=== PATIENT | male | born 1985 | race Caucasian/White ===

== ENCOUNTER 2016-12-04 14:05 | Inpatient (IN) | payer OTHER ==
[~2016-12-04] VITALS: Ht 175.3 cm; Wt 99.3 kg
--- NOTE | 2016-12-04 14:04 | ED.REPORT ---
HPI-General Illness Date of Service Dec 04, 2016 ED Provider: Luz Elena Babin MD The pt is a 31 y/o male presenting to the ED via EMS due to a drug overdose. He was first seen in the ambulance bay where intubation was being attempted. The intubation attempt was aborted in the ambulance bay. When EMS first arrived to pharmacy picking technician the pt, the pt was still able to speak and walk to the stretcher but soon began to become more and more drowsy. Narcan was given which helped to wake him up, but he soon returned to his state of drowsiness. They report him being hypotensive initially, gave him fluids, which then caused his BP to rise to 111/70 w/ a HR of 150. They report the overdose was from OxyContin "snorting" at 0700 although the pt had not used to the last 90 days. The pts father reports him complaining of being unable to breathe for the last three days. Nursing Notes Stated Complaint: OVERDOSE Chief Complaint: Overdose Nursing Notes Reviewed: Yes Allergies: Coded Allergies: Iodine and Iodide Containing Produc (Verified Allergy, Unknown, 12/04/16) General Time Seen by MD: 14:03 Chief Complaint Other (Overdose ) Hx Obtained From: Other family... (Father), EMS Arrived By: Ambulance Sudden in Onset?: Yes Onset Occurred: Just prior to arrival Symptom Duration: Since onset Recent Healthcare: No recent doctor visit, No recent hospitalization Similar Sx Previous: No Past Medical History Past Medical History Lumbago Past Surgical History None reported Smoking History Unknown if Ever Smoker Social History hx of Oxycontin use but reports not using for the last 90 days prior to today Drug Use: Other Ambulatory Status Independent Review of Systems Unable to Obtain ROS Patient condition Physical Exam Vital Signs HR - 93 BP - 84/29 SaO2 - 63% Initial VS: Reviewed Alertness: Positive: Unresponsive Head / Eyes: Atraumatic, Normocephalic ENT: Mucous membranes moist Neck: Supple, No masses Abdomen: Soft Upper Extremities Upper Extremity / MS: No deformity, Vascular intact Lower Extremity / Pelvis / MS: No deformity, Vascular intact Skin: No rash, Dry No obvious track rico or trauma Pt's skin appears mottled Copious amount of bloods coming from abdomen and lungs Mental Status: Positive: Unresponsive Interpretation & Diagnostics Lab Results Interpretation Result Diagram: 12/04/16 1830 12/04/16 1454 Test 12/04/16 14:49 12/04/16 14:54 Hold Blue Top Tube Received (Received) Hold [place] Top Tube Received (Received) Triglycerides Level 231mg/dL (0-149) Salicylates Level < 3.0ug/mL (30-250) Acetaminophen Level < 15.0ug/mL Rx (10-25) X-Ray Chest Interpretation Chest Xray Interpretation: IMPRESSION: Generalized pulmonary edema, moderately severe. Endotracheal and nasogastric tubes in normal position. Dictated by: Pavel Castle M.D. on 12/04/2016 at 15:33 Approved by: Pavel Castle M.D. on 12/04/2016 at 15:34 View: Portable, 1 view Interpretation / Wet Read by: Interpret - Radiologist Chest Xray Interpretation: IMPRESSION: 1. Interval placement of central venous catheter. No pneumothorax. 2. Other support devices in place. 3. Moderate pulmonary edema Dictated by: Ayaan Johnson M.D. on 12/04/2016 at 16:25 Approved by: Ayaan Johnson M.D. on 12/04/2016 at 16:28 View: Portable, 1 view Interpretation / Wet Read by: Interpret - Radiologist CT Head Interpretation IMPRESSION: 1. No acute intracranial findings. 2. Fluid within the right maxillary sinus and sphenoid sinuses. This is likely related to intubation; however acute sinusitis can also have this appearance. Dictated by: Alicia Napoles M.D. on 12/04/2016 at 16:35 Approved by: Alicia Napoles M.D. on 12/04/2016 at 16:41 Study: Head CT no contrast Interpretation / Wet Read by: Interpret - Radiologist Re-Eval/Medical Decision Med Decision/Clinical Course 31-year-old man with increasing shortness of breath. Father came home and he complained of increasing shortness of breath with increasingly sleepy. Father asked him what he had taken, there is a history of narcotic use and abuse. Father also noted a dramatic amount of blood all over the patient's room that appeared to open emesis. He states that at 7 AM this morning he snorted a 30 mg tablet of OxyContin. The time was about 1400. Medics were called and on arrival patient was increasingly sleepy and dyspneic. He was able to speak in full sentences and was able to get up and walk to the stretcher. Shortly after getting on the stretcher and being helped into the back of the ambulance he stopped breathing. Maintain pulses was being bagged. Upon arrival in the ambulance bay attempts are being made to intubate. Large amount of bright red blood from his gout and apparently from his trachea was noted with initial intubation attempts. I was immediately available in the ambulance bay and requested he be brought into our trauma room for further evaluation. Attempts were made to continue with bagging with an oral airway placed. Continued significant amount of bright red blood from the mouth continued. Shortly after transfer from the ambulance [place] onto the emergency room stretcher pulses were lost. CPR was started. He was noted to be in ventricular fibrillation. ACLS protocols were initiated. He was shocked a number of times and received a number of doses of epinephrine. Able to intubate with a kaleidoscope. There was a significant amount of bloody vomitus in the trachea that was continuously suctioned through the ET tube. OG tube was placed with about 250 mL of ananda blood suctioned into the container. Patient had been given Narcan in route by medics with minimal response. He was given another dose in the trauma bay with no response. Saturations were responding to adequate CPR. End tidal CO2 increased from the 20 range to the knee range. Reasons for ventricular fibrillation arrest were reviewed. At this point we did have control of his airway with oxygenation and ventilation as best we could and seemingly the majority of blood in the trachea and upper lungs had been suctioned out. Dramatic amount of blood loss described in the ananda blood noted in the GI system hypovolemia was entertained and 2 L of saline were followed with 2 units of uncrossed matched blood. Bicarbonate was administered. Clinical exam did not suggest pneumothorax. Labs are still pending at this point. Please see nursing records for ACLS protocols maintained After 45 minutes of aggressive resuscitation he finally continued to maintain heart rate and blood pressure. His chest x-ray was obtained he was noted to have significant white out of both lungs with difficulties with both oxygenation and ventilation. Additional possible causes in lead 3 days of increasing respiratory complaints and the severity of the findings on chest x-ray the possibility of pulmonary edema and pulmonary hemorrhage secondary to his drug use and snorting medications with a primary respiratory arrest due to increasing hypercarbia is entertained. Phone call was made to Dr. Mccormick, pulmonary critical care physician to ask further suggestions and help with ventilator status to try to improve both ventilation and oxygenation neither of which are adequate at this point Call to hospitalist who is also immediately available in the emergency department to help with transfer to the floor. Patient will go through the CT scanner to make sure there is no catastrophic head bleed prior to admission to the ICU Discussion with father and mother multiple times throughout the hour-long code with intermittent episodes of chest compression. Questions were answered. Time of Eval: 16:22 Re-Evaluation/Progress Note: Pt rechecked. Pt's father reports being told by the pt that 30 mg of oxycontin was snorted Consultation #1: Referral / Consult Name: Moy Mccormick MD Consulted With: Lens Matcher Call Returned at: 15:22 Bindery Machine Tender: Will see patient Consultation #2: Referral / Consult Name: Jose A Troncoso MD Consulted With: Hospitalist Call Returned at: 15:26 Bindery Machine Tender: Will see patient, Agrees with eval, Agrees with plan, Accepts admit Counseled Regarding: Diagnosis, Lab results, Need for admission Discharge & Departure Primary Impression: Cardiac arrest Additional Impression: Respiratory failure Disposition: ADMITTED TO HOSPITAL Discharge Condition All VS Reviewed: Yes Condition: Stable Referrals: Raman Grubbs MD (PCP) Crit Care Except Billable Proc Time Spent: 75-104 minutes Services Performed: Patient management by me, Time spent at bedside, Reviewing test results, Reviewing imaging, Discussing patient care, Documentation in record Scribe Attestation Portions of this note were transcribed by Michelet Acosta. I, Dr. Babin personally performed the history, physical exam and medical decision-making; I reviewed and confirmed the accuracy of the information in the transcribed note. copies to: Raman Grubbs MD, Shawna L MD Dec 04, 2016 14:04 Michelet Acosta Dec 04, 2016 15:06 Call Returned at: 15:22 Bindery Machine Tender: Will see patient Consultation #2: Referral / Consult Name: Jose A Troncoso MD Consulted With: Hospitalist Call Returned at: 15:26 Bindery Machine Tender: Will see patient, Agrees with eval, Agrees with plan, Accepts admit Counseled Regarding: Diagnosis, Lab results, Need for admission Discharge & Departure Primary Impression: Cardiac arrest Disposition: ADMITTED TO HOSPITAL Discharge Condition All VS Reviewed: Yes Condition: Stable Referrals: Raman Grubbs MD (PCP) Scribe Attestation Portions of this note were transcribed by Michelet Acosta. I, Dr. Babin personally performed the history, physical exam and medical decision-making; I reviewed and confirmed the accuracy of the information in the transcribed note. copies to: Raman Grubbs MD,Luz Elena Jackson MD Dec 04, 2016 14:04 Michelet Acosta Dec 04, 2016 15:06
[2016-12-04 14:59] LABS: Mean Corpuscular Hemoglobin 28.9 pg (27.0-35.0); Mean Corpuscular Volume 83.5 fL (81-100)
[2016-12-04] MEDS ORDERED: fentaNYL-PF 50 mCg/mL 2 mL Inj IVPUSH PRN (15:00)
[2016-12-04] MEDS ORDERED: Propofol 10,000 mCg/mL 100 mL Inj ONE (15:02)
[2016-12-04] MEDS ORDERED: fentaNYL 2,500 mCg/250 mL 2,500 MCG in IV Premix 1 EACH IV SCH (15:08)
[2016-12-04] MEDS ORDERED: fentaNYL 2,500 mCg/250 mL IV Premix IV SCH (15:10)
[2016-12-04] MEDS ORDERED: fentaNYL-PF 50 mCg/mL 2 mL Inj ONE ×4 (15:14→15:26)
[2016-12-04] MEDS ORDERED: Sodium Chloride LOK Flush 10 mL Syringe ONE ×2 (15:26)
[2016-12-04] MEDS ORDERED: 0.9% Sodium Chloride 250 ML IV ONE (15:26)
[2016-12-04] MEDS ORDERED: 0.9% Sodium Chloride 10 mL Inj IV ONE (15:26)
[2016-12-04] MEDS ORDERED: Magnesium Sulfate 50% 1 Gm/2 mL 10 mL Inj ONE (15:26)
[2016-12-04] MEDS ORDERED: EPINEPHrine 0.1 mg/mL 10 mL Syringe IV ONE (15:26)
[2016-12-04] MEDS ORDERED: DOPamine 800 mg/250 mL D5W Premix IV ONE (15:26)
[2016-12-04] MEDS ORDERED: Sodium Bicarb 1 mEq/mL 50 mL Inj ONE (15:26)
[2016-12-04] MEDS ORDERED: EPINEPHrine 0.1 mg/mL 10 mL Syringe ONE (15:26)
[2016-12-04] MEDS ORDERED: 0.9% Sodium Chloride 10 mL Inj ONE (15:26)
[2016-12-04] MEDS ORDERED: Vecuronium 1,000 mCg/mL 10 mL Inj ONE (15:27)
--- NOTE | 2016-12-04 15:35 | DRSVH ---
PROCEDURE: X-RAY CHEST ONE VIEW, PORTABLE ([id number]) INDICATIONS: post arrest TECHNIQUE: One view of the chest was acquired. COMPARISON: [facility], , CHEST 2VW, 10/13/2007, 20:40. FINDINGS: Surgical changes and devices: Endotracheal tube in normal position, nasogastric tube extends at least into the gastric body.. Lungs and pleura: No pleural effusions or pneumothorax. Lungs are abnormal with generalized pulmona ry edema. Mediastinum: Mediastinal contours appear normal. Heart size is normal. Bones and chest wall: No suspicious bony lesions. Overlying soft tissues appear unremarkable. IMPRESSION: Generalized pulmonary edema, moderately severe. Endotracheal and nasogastric tubes in no rmal position. Dictated by: Pavel Castle M.D. on 12/04/2016 at 15:33 Approved by: Pavel Castle M.D. on 12/04/2016 at 15:34
[2016-12-04] MEDS ORDERED: Cisatracurium 200,000 mCg/100 mL NS IV SCH ×2 (15:55)
[2016-12-04] MEDS: Propofol Inj 1,000,000 MCG in IV Premix 1 EACH IV SCH (16:27)
[2016-12-04] MEDS ORDERED: cefTRIAXone Inj 2,000 MG in Dextrose 5% Minibag Plus 50 ML IV SCH (16:30)
[2016-12-04] MEDS: Heparin 5,000 Unit/mL Inj SUBQ SCH ×2 (16:30→21:53)
[2016-12-04] MEDS: Chlorhexidine 0.12% 15 mL Oral Solution MT SCH ×2 (16:30→21:21)
[2016-12-04] MEDS ORDERED: Cisatracurium Inj 200,000 MCG in 0.9% Sodium Chloride 100 ML, Pharmacy To Mix 1 EA IV ONE (16:30)
--- NOTE | 2016-12-04 16:30 | DRSVH ---
PROCEDURE: X-RAY CHEST ONE VIEW, PORTABLE ([id number] hrs. INDICATIONS: central line placement TECHNIQUE: One view of the chest was acquired. COMPARISON: 12/04/[id number] hrs. FINDINGS: Surgical changes and devices: A left IJ central venous catheter has been placed, tip overlying the mi d SVC. Endotracheal tube remains in position with tip well above the mariaelena. NG tube is unchanged. De fibrillator pad in place. Lungs and pleura: No pleural effusions or pneumothorax. Bilateral pulmonary edema, right greater nannette n left. Mediastinum: Mediastinal contours appear normal. Heart size is normal. Bones and chest wall: No suspicious bony lesions. Overlying soft tissues appear unremarkable. IMPRESSION: 1. Interval placement of central venous catheter. No pneumothorax. 2. Other support devices in place. 3. Moderate pulmonary edema Dictated by: Ayaan Johnson M.D. on 12/04/2016 at 16:25 Approved by: Ayaan Johnson M.D. on 12/04/2016 at 16:28
--- NOTE | 2016-12-04 16:42 | DRSVH ---
PROCEDURE: CT BRAIN WITHOUT CONTRAST ([id number]) INDICATIONS: cardiac arrest TECHNIQUE: Noncontrast 4.5 mm thick angled axial sections acquired from the foramen magnum to the vertex, with c oronal reformats. COMPARISON: None. FINDINGS: Image quality: Excellent. CSF spaces: Basal cisterns are patent. No extra-axial fluid collections. Ventricles are normal in size and shape. Brain: No midline shift. No intracranial masses or hemorrhage. Cornejo-white matter interface is norm al. Skull and face: Calvarium and visualized facial bones are intact, without suspicious lesions. Sinuses: Fluid is present within the right maxillary sinus which has a frothy appearance. Fluid is pr esent within the bilateral sphenoid sinuses. The other paranasal sinuses and mastoid air cells are cl ear. IMPRESSION: 1. No acute intracranial findings. 2. Fluid within the right maxillary sinus and sphenoid sinuses. This is likely related to intubation; however acute sinusitis can also have this appearance. Dictated by: Alicia Napoles M.D. on 12/04/2016 at 16:35 Approved by: Alicia Napoles M.D. on 12/04/2016 at 16:41
[2016-12-04 16:45] VITALS: O2SAT 98
[2016-12-04] MEDS ORDERED: Sodium Bicarb (50 mEq) 8.4% 1 mEq/mL 50 mL Syringe IVPUSH ONE ×2 (17:00→20:49)
--- NOTE | 2016-12-04 17:18 | ABG ---
DateTimeAnalyzed 17:11:00 -_ pH ____7.196 - 7.350 7.450 pCO2 ___39.0__ -mmHg 35.0 45.0 pO2 350 -mmHg 69.0 116 HCO3- ___14.5__ -mmol/L 22.0 26.0 ABE __-13.5__ -mmol/L -2.0 2.0 tHb ___20.3__ -g/dL O2Hb ___97.7__ -% COHb ____0.3__ -% MetHb ____1.0__ -% sO2 ___99.0__ -% 25.0 FIO2 __100.0__ -% Drawn By rs - Date/Time Notified____ 17:17:00 -_ Notified By rs - Notified Whom Narayan, Moy -____ B 753 -mmHg tO2 ___28.6__ -Vol%
[2016-12-04] MEDS ORDERED: 0.9% Sodium Chloride (Chilled) 2,000 ML IV ONE (17:57)
[2016-12-04] MEDS ORDERED: Propofol Inj 1,000,000 MCG in IV Premix 1 EACH IV PRN (17:57)
[2016-12-04] MEDS ORDERED: Norepineph 8,000 mCg/250 mL NS 8,000 MCG in IV Premix 1 EACH IV PRN (17:57)
[2016-12-04] MEDS ORDERED: Lactated Ringer's 1,000 ML IV PRN (17:57)
[2016-12-04] MEDS ORDERED: 0.9% Sodium Chloride (Chilled) 1,000 ML IV PRN (17:57)
[2016-12-04] MEDS ORDERED: fentaNYL 2,500 mCg/250 mL 2,500 MCG in IV Premix 1 EACH IV PRN (17:57)
[2016-12-04] MEDS ORDERED: Calcium GLUCOnate 10% (Gm) 1 Gm/10 mL Inj IV PRN (18:00)
[2016-12-04] MEDS ORDERED: BusPIRone 15 mg Dividose Tablet TUBE PRN (18:00)
[2016-12-04] MEDS ORDERED: Acetaminophen IV 1,000 MG in IV Premix 1 EACH IV ONE (18:00)
[2016-12-04] MEDS ORDERED: Magnesium Sulf 4 Gm/100 mL H2O 4 GM in IV Premix 1 EACH IV PRN (18:00)
--- NOTE | 2016-12-04 18:39 | CONS ---
[address] [address] CONSULTATION REPORT PATIENT: MIN ATKINSON : 1985 MR#: [id number] ADMIT: 12/04/2016 JOB ID: [id number] DATE OF SERVICE: 12/04/2016 REQUESTING CLINICIAN: Mel Vilchis. HISTORY OF ILLNESS: The patient is a 31-year-old, opiate addict, who was brought to the [facility] Emergency Department by first responders after they were contacted and found the patient altered and in some respiratory distress. They had been called by the patient's father who had gone to the patient's home after the patient could not be reached by phone. The father found blood in the patient's bed and in a toilet but does not specifically know where it came from. The patient did report that he had "snorted" a ground up 30 mg Oxycontin tablet. He has a long history of opiate abuse and has completed inpatient detox/rehabilitation on at least one prior occasion this year and had been drug free until November 03 when he relapsed and began using again. He was allowed to walk independently to the ambulance; however, shortly after reaching it, he reportedly became more somnolent and then ultimately apneic. He became hypoxemic and at some point developed a wide complex tachycardia which deteriorated to ventricular fibrillation. Within minutes he had arrived in the ambulance bay outside the emergency department at [facility]. There, paramedics were making attempts to place an airway . Ultimately, I believe that the emergency department physician was able to intubate the patient, although the procedure was made quite difficult by a large amount of blood in the aiway. While attempts were being made to place an airway, the patient was pulseless and chest compressions were initiated. As best I can reconstruct from discussion with the Emergency Department provider and review of records, he may have had as much as 40 minutes of CPR before return of spontaneous circulation. He remained very difficult to oxygenate. Ultimately, I was contacted in the ICU and called urgently to his bedside in the ED. I arrived to find an unresponsive patient orally intubated, making vigorous asynchronous respiratory effort with O2 saturations in the mid 80% range despite an FiO2 of 1.0. He was rapidly assessed. He had decreased bilateral coarse breath sounds. Rhythm was sinus. Blood pressure ranged from 110 systolic to 180 systolic while receiving epinephrine by peripheral vein at 0.1 mcg/kg per minute. He received a single 10 mg dose of vecuronium to facilitate ventilation. His ventilator was changed from pressure-regulated volume control to pressure control inverse ratio and his PEEP was increased to 18, producing a mean airway pressure of approximately 32. With these maneuvers, his O2 saturation gradually christen to 100%. He was synchronous with the ventilator at a rate of 24. We then turned attention to establishing secure central venous access and this was accomplished by placement of a 20 cm central venous catheter in the left internal jugular vein under direct two-dimensional ultrasound guidance. All ports of the catheter were aspirated and flushed and then the catheter itself was secured and dressed by the vascular access nurse. Postprocedure chest x-ray confirmed proper placement of both the endotracheal tube and the left IJ central line. This chest x-ray furthermore revealed generalized diffuse alveolar infiltrates and a pattern of pulmonary edema. There was no pneumothorax. Multiple other laboratories were pending. He was ordered to undergo emergent noncontrast head CT en route to the intensive care unit, where I await his arrival. PAST MEDICAL HISTORY: Substance abuse. OUTPATIENT MEDICATIONS: None known. DRUG ALLERGIES: IODINE. SOCIAL HISTORY: Unknown. FAMILY HISTORY: Unknown. Unable to provide given sedation and intubation. REVIEW OF SYSTEMS: Not obtainable. PHYSICAL EXAMINATION: This is a well-developed, well-nourished, mildly obese gentleman, who is orotracheally intubated and unresponsive. His blood pressure is 100/77. Heart rate is 92 and regular, respirations are 24, with a ventilator rate of 24. O2 saturation is 100% on an FiO2 of 1.0. HEENT: Head is normocephalic. He has a left IJ catheter in place. The may be some crepitus in the neck but the trachea itself is midline. I cannot appreciate lymphadenopathy. The chest shows symmetric expansion. On auscultation, he has coarse breath sounds bilaterally with crackles but no wheezing heard. Cardiac exam shows a regular rhythm without murmur, gallop, or rub. His abdomen is soft. There is no mass, bruit, or organomegaly. I hear no bowel tones. Extremities: No cyanosis or clubbing. Trace lower extremity edema. Neurologic exam pending arrival in ICU and further stabilization and hopefully discontinuation of neuromuscular agents. IMPRESSION: Prolonged cardiac arrest in the setting of acute hypoxemic respiratory failure Following intentional inhalation of prescription opiates. Given the history of large amounts of aspirated blood during the intubation attempts, much of the alveolar filling could be blood. However, acute noncardiogenic pulmonary edema is well described with inhalation of opiates and this is also a strong consideration. Fortunately, he has responded to lung recruitment maneuvers and is now well oxygenated. Given the prolonged period of CPR before ROSC, he probably should undergo therapeutic temperature management protocol for at least the next 24 hours. Based on 40 minutes of CPR prior to ROSC, his neurologic prognosis is quite guarded. Hemoconcentration / Polycythemia Possible UGI bleed Acute Kidney injury, no indication for acute dialysis at present Prescription opiate abuse RECOMMEND: 1. Mechanical ventilation. PC-UMM 2. Routine ICU prophylaxis for VTE. Will use BID Protonix given concern for UGI bleed in the setting of LEANDRO. 3. Endotracheal aspirate for bacterial culture and respiratory virus by PCR. 4. Empiric Rocephin 2 g IV daily. 5. Noncontrast head CT, results currently pending. 6. Attempt to wean cisatracurium infusion following arrival in ICU and further stabilization. 7. Wean vasoactive agents, norepinephrine, as tolerates. 8. Scheduled inhaled bronchodilators. 9. Additional urine drug screen for further drugs of abuse. 10. Therapeutic temperature management with goal temperature of 36 for least the first 24 hours. Propofol and fentanyl for sedation with additional agents including buspirone, acetaminophen, magnesium, and Demerol as needed to control any shivering. 11. Renal dose adjustment of all meds 12 Ongoing fluid resuscitation, serial outputs Thank you for requesting pulmonary critical care consultation. Many features of his immediate pre-hospital history are vague, but it is clear that he had a prolonged period of requiring CPR and his neurologic prognosis is thus guarded at best. Total bedside critical care time as of this dictation, exclusive of procedures, is 90 minutes. [facility]
[2016-12-04 18:48] LABS: BASOPHILS % (AUTO) 0.4 % (0-3); EOSINOPHILS % (AUTO) 0 % (0-5); Mean Corpuscular Hemoglobin 29.4 pg (27.0-35.0); Mean Corpuscular Volume 83.1 fL (81-100); NEUTROPHILS % (AUTO) 72.6 % (40-74); Platelet Count 207 bil/L (150-400)
[2016-12-04 18:51] LABS: APPEARANCE,URINE CLOUDY (CLEAR,HAZY); COLOR,URINE RED (YELLOW)
[2016-12-04 18:59] LABS: INR 1.37 ratio
[2016-12-04 19:06] LABS: Magnesium 2.4 mg/dL (1.6-2.6); Phosphorus 3.1 mg/dL (2.5-4.9)
[2016-12-04 19:30] VITALS: BP 156/88; PULSE 85; RESP 24; O2SAT 100
[2016-12-04] MEDS ORDERED: KCL IV ONE (19:30)
[2016-12-04] MEDS ORDERED: DEXTROSE 5% IV ONE (19:30)
[2016-12-04 19:42] LABS: TROPONIN T 0.724 ug/L (0.0-0.011)
--- NOTE | 2016-12-04 20:03 | NUR ---
Rec'd to room 2016 from ER at around [address] after uneventful transfer via gurney. Intubated, nimbex infusing, no TOF completed prior to paralysis so am unable to assess without baseline at this time. Sedation in ER consisted of fentanyl and propofol boluses, infusions of both Rx initiated on arrival. Thermister tang catheter placed with resistence met at level of prostate, immediate urine return is blood tinged but not bright red. UA sent. VAP sputum sent. Blood pressures adequate on epi gt. Please see CCU flowsheet for details. Hypothermia. Temp 37.0 on arrival prior to application of cooling garments. T-max 38.3 despite chilled saline, Arctic Sun and placement of ice packs. IV tylenol given as soon as available from pharmacy. Temp progressing to goal afterwards. Multiple family members here. Care explained as given. Questions answered as able. Hypothermia literature provided. Report to oncoming RN with bedside safety rounds completed.
--- NOTE | 2016-12-04 20:09 | ABG ---
DateTimeAnalyzed 20:03:00 -_ pH ____7.115 - 7.350 7.450 pCO2 ___40.4__ -mmHg 35.0 45.0 pO2 415 -mmHg 69.0 116 HCO3- ___12.4__ -mmol/L 22.0 26.0 ABE __-17.5__ -mmol/L -2.0 2.0 tHb ___18.4__ -g/dL O2Hb ___97.8__ -% COHb ____0.0__ -% MetHb ____1.2__ -% sO2 ___99.0__ -% 25.0 FIO2 ___21.0__ -% PEEP ___18.0__ -cmH2O Set_RR ___24.0__ -b/min Drawn By TLA - Date/Time Notified____ 20:09:00 -_ Spontaneous_RR ___24.0__ -b/min Oxygen Device 1 VENTILATOR - Notified By TLA - Notified Whom Lucio-RN - B 753 -mmHg tO2 ___26.2__ -Vol%
[2016-12-04] MEDS ORDERED: Famotidine Inj 20 MG in IV Premix 1 EACH IV SCH (20:30)
--- NOTE | 2016-12-04 20:30 | PROCED ---
[address] [address] PROCEDURE NOTE PATIENT: MIN ATKINSON : 1985 MR#: [id number] ADMIT: 12/04/2016 JOB ID: [id number] DATE OF SERVICE: 12/04/2016 SURGEON: Moy Mccormick MD PROCEDURE: Central venous catheterization. PREOPERATIVE DIAGNOSIS(ES): Shock and respiratory failure following inhalation of prescription opiates. POSTOPERATIVE DIAGNOSIS(ES): Shock and respiratory failure following inhalation of prescription opiates. PROCEDURE SUMMARY: Procedure performed without informed consent given the emergent nature and need for central venous access in this critically ill young man. The left neck was examined with real time two dimensional ultrasound and the left internal jugular vein was identified by location and compression. This area was heavily scrubbed with chlorhexidine and then sterilely draped. All members of the team were in full barrier precaution. Modified Seldinger technique was used to place a 20 cm triple- lumen catheter in the left internal jugular. The procedure went well without apparent complication. The catheter was advanced 18 cm and secured in place by the vascular access nurse with sterile dressing applied per hospital policy. All ports were confirmed to aspirate and flush. Postprocedure chest x-ray confirmed that the tip of the catheter lies at the proximal superior vena cava and there is no pneumothorax. SPECIMENS: None. PATIENT CONDITION FOLLOWING PROCEDURE: Critically ill as before. [facility]
[2016-12-04 20:34] VITALS: O2SAT 100
[2016-12-04] MEDS ORDERED: Polyethylene Glycol (PEG) 17 Gm Powder PO PRN (20:35)
[2016-12-04] MEDS ORDERED: Alum-Mag Hydrox-Simeth 30 mL Suspension PO PRN (20:35)
[2016-12-04] MEDS ORDERED: Ondansetron 2 mg/mL 2 mL Inj IVPUSH PRN (20:35)
[2016-12-04] MEDS ORDERED: Senna-Docusate 8.6-50 mg Tablet PO PRN (20:35)
[2016-12-04] MEDS ORDERED: Sodium Bicarb (50 mEq) 8.4% 1 mEq/mL 50 mL Syringe ONE (20:42)
[2016-12-04] MEDS: LacriLube S.O.P. 3.5 Gm Ophthalmic Ointment BOTH_EYES SCH (20:57)
[2016-12-04] MEDS ORDERED: WATER STERILE FOR IV SCH ×2 (21:00→21:10)
[2016-12-04] MEDS ORDERED: SODIUM ACETATE IV SCH ×2 (21:00→21:10)
[2016-12-04] MEDS: Norepineph 8,000 mCg/250 mL NS 8,000 MCG in IV Premix 1 EACH IV SCH (21:01)
[2016-12-04] MEDS: Dextrose 5% Lactated Ringer's 1,000 ML IV SCH (21:01)
--- NOTE | 2016-12-04 21:29 | PCM.PNMED ---
Subjective Date of Service Dec 04, 2016 Subjective Paged by Rt 1830 hrs with most recent ABG results showing a metabolic acidosis, worse since his last ABG. pH 7.11 and pCO2 40 but not temperature corrected so this perhaps overestimates his acidemia. Asked to speak with patient's bedside RN and asked if the patient was off epi and on his norepi gtt as ordered at 1630. I was told that the epi was still running and the RN was "titrating it off". I clarified with the nurse that I had ordered it to be stopped 4 hours ago and norepinephrine begun. The RN said he was continuing the epi "because the last time they tried to turn it off he coded". I told him that I was well aware of the events in the ED as I had gone down there to stabilize the patient earlier in the day and with all that in mind I still wanted the patient to be on norepi and not epi as the latter was contributing to his acidemia. I asked the RN to either follow the orders I had written 4 hours earlier regarding vasoactive drug choice OR document his reasons for ignoring my order and choosing to administer a medication for which the patient did not have a physicians order to support it. I then returned immediately to the hospital. IN addition to asking that the vasoactive drug be changed, I ordered 50mEq of NaHCO3 IV push and attempted to order a bicarb gtt but was told by the pharmacy that they did not have sufficient bicarbonate on hand due to a national backorder. Instead I ordered 150 mEq NaAcetate / L sterile water TRA 100 ml/hr and decreased his D5W/LR rate to 50. Serial labs ordered. Exam Vital Signs Vital Sign - Last Date Time Temp Pulse Resp B/P Pulse Ox O2 Delivery O2 Flow Rate FiO2 12/04/16 20:34 100 85 Lab and Diagnostics Result Diagram: 12/04/16182912/04/161829 Moy Mccormick MD Dec 04, 2016 21:29
--- NOTE | 2016-12-04 22:52 | ABG ---
DateTimeAnalyzed 22:43:00 -_ pH ____7.119 - pCO2 ___48.9__ -mmHg pO2 ___54.2__ -mmHg HCO3- ___15.2__ -mmol/L ABE __-15.2__ -mmol/L tHb ___18.4__ -g/dL O2Hb ___82.0__ -% COHb ____0.2__ -% MetHb ____1.1__ -% sO2 ___83.1__ -% FIO2 ___75.0__ -% PEEP ___18.0__ -cmH2O Set_RR ___24.0__ -b/min Drawn By __Jeff-RN - Date/Time Notified____ 22:51:00 -_ Spontaneous_RR ___24.0__ -b/min Oxygen Device 1 VENTILATOR - Notified By Meghana A.____ - Notified Whom __Jeff-RN - B 753 -mmHg tO2 ___.2__ -Vol% Harsh test N/A -
--- NOTE | 2016-12-04 23:09 | PCM.HPMED ---
Subjective Date of Service Dec 04, 2016 Primary Provider: Admitting Physician: Jose A Troncoso MD Primary Care Physician: Issac Rankin MD Attending Physician: Jose A Troncoso MD Admit Status: From the Emergency Department Chief Complaint: Cardiac arrest History of Present Illness: The patient is a 31-year-old with a history of opiate addiction who was brought to the ED by EMS unresponsive. The patient's father had gone to the patient's home after the patient could not be reached by phone, and found blood in the patient's bed and in a toilet but does not specifically know where it came from. The patient was found altered and in some respiratory distress, complaining of sleepiness and shortness of breath. The patient reported that he had "snorted" a ground up 30 mg Oxycontin tablet at 7 AM today, about 7 hours prior. He has a long history of opiate abuse and has completed inpatient detox/ rehabilitation on at least one prior occasion this year and had been drug free until November 03 when he relapsed and began using again. EMS was contacted and upon arrival, he was allowed to walk independently to the ambulance; however, shortly after reaching it, he reportedly became more somnolent and then ultimately apneic. He became hypoxemic and at some point developed a wide complex tachycardia which deteriorated to ventricular fibrillation. Within minutes he had arrived in the ambulance bay outside the ED and he was intubated after significant difficulty securing his airway. There was a large amount of blood found in the airway. During the attempts at intubation, he became pulseless and chest compressions were initiated, and received up to 40 minutes of CPR, along with shocks and epinephrine before ROSC was achieved. He continued to oxygenate poorly and O2 sats remained in mid 80s. Dr. Mccormick was contacted and the patient was paralyzed with vecuronium, and his ventilator was changed from PRVC to pressure control inverse ratio and his PEEP was increased to 18, at which point his O2 sat increased to 100%. After intubation, his Tmax was 38.3, HR 92, RR 24, BP 100/77, and O2 sat 100%. WBC was 9.7, Hb 20, Na 147, K 2.8, Cl 109, CO2 14, BUN 29, Cr 3.07. Glucose was 152. Lactic acid 9.2, 0.724. Procalcitonin was 119.64. CXR showed moderate- severe generalized pulmonary edema. CT head showed no acute intracranial process , with fluid in the right maxillary and sphenoid sinuses. Review of Systems: Comprehensive review of systems was unable to be conducted due to patient status Allergies Coded Allergies: Iodine and Iodide Containing Produc (Verified Allergy, Unknown, 12/04/16) Home Medications Unknown H Lumbago Substance abuse Surgical History Unknown Family History Unknown Social History Hx Substance Use: Yes (Prior to admit. ) Smoking Status: Unknown if Ever Smoker Exam Vital Signs Vital Sign - Last Date Time Temp Pulse Resp B/P Pulse Ox O2 Delivery O2 Flow Rate FiO2 12/04/16 20:34 100 85 Exam General: Sedated and intubated. Cooling device in place. Head: Normocephalic, atraumatic. External ears normal. Eyes: Pupils sluggish and fixed. Anicteric sclerae. Mouth: Mouth normal, Mucous membranes moist/pink Neck: Neck supple with full range of motion. IJ line in place. Chest& Lungs: Coarse breath sounds Cardiovascular: Regular rate/rhythm, Normal S1, Normal S2, No murmurs/rubs/ gallops Abdomen: Non-tender, Non-distended, No masses, Absent bowel tones, Soft Extremities: Trace bilateral lower extremity edema Neurological: Unresponsive. Lab and Diagnostics Result Diagram: 12/04/16182912/04/161829 Assessment & Plan The patient is a 31-year-old with a history of opiate addiction who was brought to the ED by EMS unresponsive. Acute hypoxic and hypocapnic respiratory failure. Present on admission. - Occurred following intentional inhalation of prescription opiates. Possibly secondary to acute noncardiogenic pulmonary edema associated with opiate inhalation. - Continue mechanical ventilation with PC-UMM, consult pulm-critical care, recs appreciated - Propofol and fentanyl gtt Acute cardiac arrest. Present on admission. - Likely secondary to hypoxic respiratory failure. Pt became pulseless after becoming hypoxic. Likely not cardiogenic. - Cooling protocol - Mechanical ventilation, goal pCO2 40-45 mmHg - Buspirone PRN shivering, keppra if concern for seizure activity Possible sepsis, acute. Present on admission. - Tmax on admission was 38.3. RR 24. Lactic acid 9.2. Procalcitonin 119.64. Possibly secondary to UTI. UA showed 11-50 WBCs, moderate bacteria. - Blood, sputum, and urine cultures pending. - Respiratory viral PCR - Continue IV ceftriaxone. - Norepinephrine gtt, wean as tolerated Possible upper GI bleed, acute. Present on admission. - Pt noted to have large amounts of blood in oropharynx and trachea. Unknown source - possible hematemesis from GI bleed vs hemoptysis, but most likely explanation includes epistaxis from snorting opiates. H&H is stable. - Monitor H&H - Protonix 40 mg IV BID Acute kidney injury. Present on admission. - Secondary to hypotension vs sepsis. - Avoid nephrotoxic meds, renal dosing of meds. Anion gap metabolic acidosis, acute. Present on admission. - Secondary to lactic acidosis. Anion gap 24. pH 7.12, pCO2 40.4, pO2 415, bicarb 12.4. - Continue to monitor lactic acid - Sodium acetate gtt, bicarb unavailable Elevated liver enzymes, acute. Present on admission. - LFTs elevated on admission. Secondary to hypoperfusion vs sepsis. - Continue to monitor LFTs. Elevated troponin, acute. Present on admission. - Troponin 0.724 on admission. Likely secondary to demand ischemia and myocardial injury during CPR/defib. Pt negative for amphetamines. Unlikely to have CAD. - Trend troponin History of opioid abuse. - Serum tox screen negative despite history of snorting opiates today. - Social work consult - Bowel regimen as needed - Antiemetic as needed Patient is admitted under inpatient status with expected length of stay greater than 2 midnights due to severity of presenting symptoms, risk of adverse event, and complexity of treatment plan. Attending Statement The patient was seen and examined together with house staff on 12/04/2016 and I agree with the history, exam and plan as outlined in the note above. 30 minutes of critical care time spent with plan development and patient management Jose M Fuentes Dec 04, 2016 21:00 Marisa Centeno DO Dec 05, 2016 04:23
[2016-12-04] MEDS ORDERED: KCl 40 mEq/100 mL (CENTRAL) 20 MEQ in IV Premix 1 EACH IV ONE (23:10)
[2016-12-04 23:44] VITALS: O2SAT 100
[2016-12-05] VITALS (11 sets, daily range): BP systolic 115–153; BP diastolic 81–94; PULSE 83–103; RESP 18–24; O2SAT 100
[2016-12-05 00:18] LABS: EOSINOPHILS % (AUTO) 0 % (0-5); Mean Corpuscular Hemoglobin 29.7 pg (27.0-35.0); Platelet Count 133 bil/L (150-400)
[2016-12-05] MEDS: Propofol Inj 1,000,000 MCG in IV Premix 1 EACH IV SCH ×4 (00:22→23:04)
[2016-12-05] MEDS: Chlorhexidine 0.12% 15 mL Oral Solution MT SCH ×6 (00:23→20:12)
[2016-12-05 00:27] LABS: INR 1.23 ratio
[2016-12-05 00:38] LABS: BASOPHILS % (AUTO) 0 % (0-3); MONOCYTES % (AUTO) 2 % (4-12); NEUTROPHILS % (AUTO) 30 % (40-74)
[2016-12-05 00:50] LABS: Magnesium 2.2 mg/dL (1.6-2.6); Phosphorus 3.2 mg/dL (2.5-4.9)
[2016-12-05 00:51] LABS: TROPONIN T 1.01 ug/L (0.0-0.011)
[2016-12-05] MEDS: Cisatracurium 2,000 mCg/mL 10 mL Inj IV PRN ×2 (02:06→03:03)
[2016-12-05] MEDS: SODIUM BICARB IV SCH ×6 (02:30→20:10)
[2016-12-05] MEDS: DEXTROSE 5% IV SCH ×6 (02:30→20:10)
[2016-12-05] MEDS: Dextrose 5% Lactated Ringer's 1,000 ML IV SCH (04:00)
[2016-12-05] MEDS: Albuterol HFA 200 Puff Inhaler (Vent Pts Only) INHALATION SCH ×5 (04:57→19:43)
--- NOTE | 2016-12-05 06:08 | ABG ---
DateTimeAnalyzed 06:01:00 -_ pH ____7.273 - 7.350 7.450 pCO2 ___39.2__ -mmHg 35.0 45.0 pO2 ___33.5__ -mmHg 69.0 116 HCO3- ___17.5__ -mmol/L 22.0 26.0 ABE ___-8.5__ -mmol/L tHb ___17.0__ -g/dL O2Hb ___67.4__ -% COHb ____0.5__ -% MetHb ____1.1__ -% sO2 ___68.5__ -% FIO2 ___50.0__ -% PEEP ___16.0__ -cmH2O Set_RR ___24.0__ -b/min Drawn By RN - Date/Time Notified____ 06:07:00 -_ Spontaneous_RR ___24.0__ -b/min Notified By TLA - Notified Whom __Jeff-RN - B 755 -mmHg tO2 ___16.1__ -Vol% Harsh test N/A -
--- NOTE | 2016-12-05 06:25 | NUR ---
Hypothermia, Pressors, Vent, Sedation Continues on Targeted temperature management with goal 36.0 as ordered and confirmed with Dr Narayan. Goal reached 1929. Epinephrine gtt cut in half from 0.1mcg to 0.05mcg/kg/min at 1944 with blood pressure 130s to 155 with stim. Continues ventilated with sats 100% fio2 without desaturations. Sedation Fentanyl 50mcg/h and Propofol 20mcg/kg/min unchanged. Nimbex continues through the night and weaned this a from 3mcg to 1mcg/kg/min for tof 1/4. Dr Narayan given ABG results by RT 2029. Direct order to turn off epinephrine. Discussed current efforts to wean epinephrine and current rate of 0.04mcg (minimal). Epinephrine d/poli 2044 as ordered. Pt tolerated well. 0600 pt remains off pressors. Fio2 weaned through the night to current 50% fio2. Peep 14 per RT. Sats continue 100%. Randall cath in place with john pink urine becoming more clear through the am. Ogt to LCS draining pink becoming green drainage. No stools through the night. Dr Dumont given 0600 ABG results.
[2016-12-05 06:29] LABS: INR 1.21 ratio
[2016-12-05 06:50] LABS: Magnesium 1.9 mg/dL (1.6-2.6); Phosphorus 2.1 mg/dL (2.5-4.9)
[2016-12-05 07:06] LABS: TROPONIN T 0.57 ug/L (0.0-0.011)
--- NOTE | 2016-12-05 07:24 | PROCED ---
[address] [address] PROCEDURE NOTE PATIENT: MIN ATKINSON : 1985 MR#: [id number] ADMIT: 12/04/2016 JOB ID: [id number] DATE OF SERVICE: 12/04/2016 PREOPERATIVE DIAGNOSIS(ES): Acute Respiratory Failure, Cardiac Arrest, Shock POSTOPERATIVE DIAGNOSIS(ES): Acute Respiratory Failure, Cardiac Arrest, Shock PROCEDURE: Right Radial Arterial line. TAG MACHINE OPERATOR: Alex Becker MD. INDICATION: Intubated sedated patient requiring serial arterial blood gases, status post cardiac arrest, on cooling protocol, requiring pressor support. Consulted by Dr. Jose M Fuentes on behalf of Dr. Centeno for arterial line in intubated patient, status post recent cardiac arrest, on cooling protocols and requiring pressors. The patient was identified and consent reviewed. DESCRIPTION OF PROCEDURE: Right upper extremity examined with ultrasound to identify right radial artery for path and patency. A small 1.5-2 mm radial artery was identified from distal to proximal to antecubital space. Artery has small dilation directly at the wrist where it widens to 5 mm which quickly then tapers down to 1.5-[address] Becker in sterile gloves, gown, mask and hat. Right upper extremity was sterilely prepped in supinated position with ChloraPrep. Ultrasound-guided attempts were made with Arrow catheters with built-in Seldinger wire. Attempts were made from proximal to distal. With first two proximal sticks, blood return was obtained via Arrow catheter. However, catheter was unable to thread into such a small vessel. Threaded catheters revealed no pulsatile waveform and were removed. Adequate hemostasis was immediately observed. Final attempt made at distal site under direct ultrasound guidance yielded visual confirmation of catheter in the artery. However, no blood return was obtained and catheter could not be fully threaded into the vessel. At this time the procedure was stopped after three failed attempts, and Dr. Moy Mccormick, the integration aide jd edwards consultant, informed us that for the further duration of the evening venous blood gases would be sufficient for the management of this patient. Additional ultrasound evaluation of the left radial artery identified an artery of similar size as the right radial artery. Due to the prior non-successful cannulation attempts with the small radial artery on the right, the left radial artery was left unattempted. Examination of the right femoral artery was made and determined to be patent and with better pulsatile flow. Should the patient require further intervention due to deterioration and have requirements for an arterial line, a femoral arterial line may be next viable option. At this time, under advisement from the integration aide, further attempts at inserting an arterial line will be placed on hold, as the patient is currently no longer on pressors and is stable. His intubated mechanical ventilation will be managed with venous blood gases in the foreseeable future. The obstacles encountered in placement of a radial arterial line for this patient were explained to the patient's brother upon his return; This was acknowledged. Patient tolerated the procedure well. COMPLICATIONS: None. VITALS: Stable. MTDD
[2016-12-05] MEDS: LacriLube S.O.P. 3.5 Gm Ophthalmic Ointment BOTH_EYES SCH ×2 (07:59→20:11)
[2016-12-05] MEDS: Pantoprazole 4 mg/mL 10 mL Inj IVPUSH SCH ×2 (08:04→16:42)
--- NOTE | 2016-12-05 08:06 | DRSVH ---
PROCEDURE: X-RAY CHEST ONE VIEW, PORTABLE ([id number]) INDICATIONS: Post intubation to verify ETT placement TECHNIQUE: One view of the chest was acquired. COMPARISON: [facility], CR, XR CHEST 1VW (PORTABLE), 12/04/2016, 15:53. [facility], CR, XR CHEST 1VW (PORTABLE), 12/04/2016, 14:44. FINDINGS: Surgical changes and devices: Endotracheal tube in normal position, central line from a left-sided ap proach, presumably jugular access, crosses diagonally across the upper mediastinum and terminates jus t below the azygos arch area of the superior vena cava region. Nasogastric tube extends below the im aging margin with side port near the EG junction. Lungs and pleura: No pleural effusions or pneumothorax. Lungs are abnormal with a general pulmonary edema pattern slightly greater on the right than the left but this appears to be somewhat improved f rom the comparison plain films from 12/04/16. Mediastinum: Mediastinal contours appear normal. Heart size is normal. Bones and chest wall: No suspicious bony lesions. Overlying soft tissues appear unremarkable. IMPRESSION: Endotracheal, nasogastric tube and central line as noted above, no pneumothorax. Pulmona ry edema pattern greater on the right than the left but mildly improved from one day ago. Dictated by: Pavel Castle M.D. on 12/05/2016 at 8:01 Approved by: Pavel Castle M.D. on 12/05/2016 at 8:04
[2016-12-05 08:27] LABS: Mean Corpuscular Hemoglobin 29.3 pg (27.0-35.0); Mean Corpuscular Volume 82.8 fL (81-100); Platelet Count 107 bil/L (150-400)
[2016-12-05 08:28] LABS: BASOPHILS % (AUTO) 0 % (0-3); EOSINOPHILS % (AUTO) 0 % (0-5); MONOCYTES % (AUTO) 4 % (4-12); NEUTROPHILS % (AUTO) 64 % (40-74)
[2016-12-05] MEDS: Heparin 5,000 Unit/mL Inj SUBQ SCH ×2 (08:50→16:42)
--- NOTE | 2016-12-05 08:55 | PCM.PNMED ---
Subjective Date of Service Dec 05, 2016 Subjective 31 yo man with long history of opiate addiction brought to ED by paramedics who were called by a family member, The specific reason for calling 911 is not clear. Shortly after being allowed to walk to the ambulance he developed respiratory distress/failure and became unresponsive and apneic. Patient had told his father that he had recently "snorted" 30 mg of crushed oxycontin. His intubation was difficult and he progressed to a wide complex tachycardia and then VF before an airway could be established by the ED physician. Since admission he has evidence for sepsis with acidemia, bandemia, azotemia but cultures of blood, urine and respiratory secretions are all pending. Given his prolonged episode of CPR and resucitation in the ED, he has been placed on TTM protocol. Remains intubated, sedate and paralyzed on TTM at goal temp 36C. Off pressors. Oliguric with total urine since admission of less than 500 ml. Exam Vital Signs Vital Sign - Last Date Time Temp Pulse Resp B/P Pulse Ox O2 Delivery O2 Flow Rate FiO2 12/05/16 07:33 95 118/94 100 50 12/05/16 04:00 35.4 24 Mechanical Ventilator Intake and Output 12/04/16 12/04/16 12/05/16 Cumulative From/Thru 15:00 23:00 07:00 12/04/16 15:53 - 12/05/16 06:22 Intake Total 2295 ml 2799 ml 5094 ml Output Total 200 ml 445 ml 645 ml Balance 2095 ml 2354 ml 4449 ml Intake IV Total 2295 ml 2799 ml 5094 ml Output Urine Total 200 ml 245 ml 445 ml Gastric Drainage Total 200 ml 200 ml Exam WDWN man orally intubated sedated and paralyzed Lungs Decreased BS, scattered crackles, NO wheezes CV RRR, nl S1S2, no m/g/r Abd soft, NO BTs ,NO HSM, mass, bruit Ext Cool, 1+ bilat radial pulse Neuro paralyzed and sedated, PER, no Lab and Diagnostics Result Diagram: 12/05/16 0010 12/05/16 0600 Moy Mccormick MD Dec 05, 2016 08:55 to the ED by EMS unresponsive. Acute hypoxic and hypocapnic respiratory failure. Present on admission. - Occurred following intentional inhalation of prescription opiates. Possibly secondary to acute noncardiogenic pulmonary edema associated with opiate inhalation. - Continue mechanical ventilation with PC-UMM, consult pulm-critical care, recs appreciated - Propofol and fentanyl gtt Acute cardiac arrest. Present on admission. - Likely secondary to hypoxic respiratory failure. Pt became pulseless after becoming hypoxic. Likely not cardiogenic. - Cooling protocol - Mechanical ventilation, goal pCO2 40-45 mmHg - Buspirone PRN shivering, keppra if concern for seizure activity Possible sepsis, acute. Present on admission. - Tmax on admission was 38.3. RR 24. Lactic acid 9.2. Procalcitonin 119.64. Possibly secondary to UTI. UA showed 11-50 WBCs, moderate bacteria. - Blood, sputum, and urine cultures pending. - Respiratory viral PCR - Continue IV ceftriaxone. - Norepinephrine gtt, wean as tolerated Possible upper GI bleed, acute. Present on admission. - Pt noted to have large amounts of blood in oropharynx and trachea. Unknown source - possible hematemesis from GI bleed vs hemoptysis, but most likely explanation includes epistaxis from snorting opiates. H&H is stable. - Monitor H&H - Protonix 40 mg IV BID Acute kidney injury. Present on admission. - Secondary to hypotension vs sepsis. - Avoid nephrotoxic meds, renal dosing of meds. Anion gap metabolic acidosis, acute. Present on admission. - Secondary to lactic acidosis. Anion gap 24. pH 7.12, pCO2 40.4, pO2 415, bicarb 12.4. - Continue to monitor lactic acid - Sodium acetate gtt, bicarb unavailable Elevated liver enzymes, acute. Present on admission. - LFTs elevated on admission. Secondary to hypoperfusion vs sepsis. - Continue to monitor LFTs. Elevated troponin, acute. Present on admission. - Troponin 0.724 on admission. Likely secondary to demand ischemia and myocardial injury during CPR/defib. Pt negative for amphetamines. Unlikely to have CAD. - Trend troponin History of opioid abuse. - Serum tox screen negative despite history of snorting opiates today. - Social work consult - Bowel regimen as needed - Antiemetic as needed Patient is admitted under inpatient status with expected length of stay greater than 2 midnights due to severity of presenting symptoms, risk of adverse event, and complexity of treatment plan. Moy Mccormick MD Dec 05, 2016 08:55
--- NOTE | 2016-12-05 08:57 | PCM.PNMED ---
Subjective Date of Service Dec 05, 2016 Subjective See H&P .My note for today was nearly complete when the EMR abruptly closed and lost all documentation No new critical events Exam Vital Signs Vital Sign - Last Date Time Temp Pulse Resp B/P Pulse Ox O2 Delivery O2 Flow Rate FiO2 12/05/16 07:33 95 118/94 100 50 12/05/16 04:00 35.4 24 Mechanical Ventilator Intake and Output 12/04/16 12/04/16 12/05/16 Cumulative From/Thru 15:00 23:00 07:00 12/04/16 15:53 - 12/05/16 06:22 Intake Total 2295 ml 2799 ml 5094 ml Output Total 200 ml 445 ml 645 ml Balance 2095 ml 2354 ml 4449 ml Intake IV Total 2295 ml 2799 ml 5094 ml Output Urine Total 200 ml 245 ml 445 ml Gastric Drainage Total 200 ml 200 ml Exam See Subjective. Note lost by EMR Lab and Diagnostics Result Diagram: 12/05/16 0600 12/05/16 0600 Assessment & Plan IMP Acute respiratory failure, pulm edema pattern on admission, ? noncardiac, now improved on PC-UMM, FiO2 down to 0.45 and PEEP weaned to 14. VT and VF arrest in ED likely secondary to hypoxemia, prolonged CPR Sepsis, no clear source although hematuria, bacteriuria and pyuria on UA, cultures all pending. On empiric rocephin Lactic acidosis LEANDRO, no indication for acute dialysis Possible anoxic ischemic brain injury Opiate abuse REC Retroperitoneal US to r/o obstruction Serial labs Complete TTM this evening and wean sedation and paralytics then Continue empiric abx Wean FiO2 and PEEP as tolerates F/U cultures Pain Evaluation: Adequate Pain Control GI Prophylaxis: Proton Pump Inhibitor VTE Prophylaxis: Sub-Q Heparin (Unfractionated) Resuscitation Status: CPR: Attempt Resuscitation Time spent 50 Moy Mccormick MD Dec 05, 2016 08:57
[2016-12-05] MEDS ORDERED: Sodium Chloride LOK Flush 10 mL Syringe IVFLUSH PRN ×2 (10:25)
--- NOTE | 2016-12-05 11:18 | NUR ---
NUTRITION ASSESSMENT: ASSESS: 31 YO male admitted for cardiac arrest, LEANDRO, possible GI bleed. Pt with opiate addiction per notes. Hypothermia protocol was initiated on 12/04. PMHx: Lumbago, substance abuse. LABS: Reviewed. BUN 39, Cr 3.55, Glu 227, Ca 7.0, Phos 2.1, AST 184, ALT 190, Alb 2.8 MEDS: Reviewed. Propofol and Nimbex. GI: No BM reported at this time. CURRENT WT: 103.1 kg. Admit wt 100 kg. IBW: 72.73 kg. DIET: NPO EST. NEEDS: 5495-7591 kcals (22-25 kcals/kg IBW) 70-110 g protein (1.0-1.5 g/kg IBW) [id number] ML fluids (22-25 ml/kg IBW) NUTRITION DIAGNOSIS: 1.) Inadequate oral intake related to decreased ability to consume sufficient energy as evidenced by current vent and NPO status. NUTRITION INTERVENTION: 1.) If pt remains intubated s/p completion of rewarming phase of hypothermia protocol, recommend initiation of trophic tube feed when appropriate. Formula to be determined at time of initiation due to current renal lab values, etc. MONITOR / EVAL: NPO status, possible nutrition support, labs, nutritional status. Follow per high nutritional risk guidelines.
--- NOTE | 2016-12-05 12:01 | ABG ---
DateTimeAnalyzed 11:52:58 -_ pH ____7.421 - 7.350 7.450 pCO2 ___27.7__ -mmHg 35.0 45.0 pO2 111 -mmHg 69.0 116 HCO3- ___18.0__ -mmol/L 22.0 26.0 ABE ___-5.4__ -mmol/L tHb ___17.0__ -g/dL O2Hb ___98.0__ -% COHb ____0.8__ -% 1.5 MetHb ____0.0__ -% sO2 ___98.5__ -% FIO2 ___45.0__ -% PEEP ___12.0__ -cmH2O Set_RR 24 -b/min Drawn By as - Date/Time Notified____ 12:01:00 -_ Spontaneous_RR 24 -b/min Oxygen Device 1 VENTILATOR - Notified By ams - Notified Whom dr costello - K+ ____4.1__ -mmol/L tO2 ___23.5__ -Vol% Harsh test _Positive -
[2016-12-05] MEDS: Piperacillin-Tazo 3.375 Gm Inj 3.375 GM in Dextrose 5% Minibag Plus 50 ML IV SCH ×2 (12:19→20:11)
[2016-12-05] MEDS: Dextrose 5% 0.9% NaCl 1,000 ML IV SCH (12:19)
[2016-12-05 12:34] LABS: INR 1.26 ratio
[2016-12-05 12:53] LABS: Phosphorus 1.6 mg/dL (2.5-4.9)
--- NOTE | 2016-12-05 13:09 | PCM.PNMED ---
Subjective Date of Service Dec 05, 2016 Subjective The patient is a 31-year-old with a history of opiate addiction who was brought to the ED by EMS unresponsive. The patient was found altered and in some respiratory distress, complaining of sleepiness and shortness of breath. The patient reported that he had "snorted" a ground up 30 mg Oxycontin tablet at 7 AM today, about 7 hours prior. He has a long history of opiate abuse and has completed inpatient detox/rehabilitation on at least one prior occasion this year and had been drug free until November 03 when he relapsed and began using again. The patient was admitted to the CCU for acute hypoxic hypercapnic respiratory arrest, acute cardiac arrest, and possible sepsis. Hospital day 1. Intubated 12/04 Nursing reports hypothermia protocol initiated with target temperature @36C reached at 1930. Patient sedated using Fentanyl and Propofol, and FiO2 weaned to 50% with PEEP at 14. Patient seen and examined. Sedated and mechanically ventilated. Small amount of urine output through tang cath. No stool output. Further discussion with family indicates patient had been feeling sick the past couple of days, and may have used opiate medications to help him feel better. Patient also is reported to drink 2-3 energy drinks per day. Exam Vital Signs Vital Sign - Last Date Time Temp Pulse Resp B/P Pulse Ox O2 Delivery O2 Flow Rate FiO2 12/05/16 11:12 85 118/88 100 45 12/05/16 04:00 35.4 24 Mechanical Ventilator Intake and Output 12/04/16 12/04/16 12/05/16 Cumulative From/Thru 15:00 23:00 07:00 12/04/16 15:53 - 12/05/16 06:22 Intake Total 2295 ml 2799 ml 5094 ml Output Total 200 ml 445 ml 645 ml Balance 2095 ml 2354 ml 4449 ml Intake IV Total 2295 ml 2799 ml 5094 ml Output Urine Total 200 ml 245 ml 445 ml Gastric Drainage Total 200 ml 200 ml Exam Constitutional: Sedated and mechanically ventilated. Appears stated age. Head: normocephalic and atraumatic Eyes: Bowles Conjunctiva. No scleral icterus Heart: Regular rate and rhythm. No peripheral edema. Lungs: Coarse lung sounds, improved from yesterday's exam. No wheeze. Mechanical Ventilation: FiO2 45%, PEEP 12, R20, pPeak 28, pmean 22 ABD: soft, bowel sounds present throughout Musculoskeletal: Good muscle tone Skin: Warm, Dry, No rash Psych: unable to assess secondary to sedation. IVs and Medications IV Fluids 1L Dextrose and NS in the last 24 hours. 4L NS in the last 24 hours Medications Reviewed: Medications were reviewed in detail Medications High Risk IV Medications: Norepinephrine Zosyn Nimbex Propofol Fentanyl Lab and Diagnostics Item Value Date Time Red Blood Count 5.59 mil/mm3 12/05/161199 Mean Corpuscular Volume 81.4 fL 12/05/16 1200 Mean Corpuscular Hemoglobin 29.5 pg 12/05/16 1200 Mean Corpuscular Hemoglobin Concent 36.3 % 12/05/16 1200 Red Cell Distribution Width 13.1 % 12/05/16 1200 Neutrophils (%) (Auto) 51 % 12/05/16 1200 Lymphocytes (%) (Auto) 10 % L 12/05/16 1200 Monocytes (%) (Auto) 4 % 12/05/16 1200 Eosinophils (%) (Auto) 0 % 12/05/16 1200 Basophils (%) (Auto) 0 % 12/05/16 1200 Band Neutrophils % 35 % H 12/05/16 1200 Estimat Glomerular Filtration Rate 18 mL/min 12/05/16 1200 Lactic Acid Level 6.5 mmol/L *H 12/05/16 1200 Calcium Level 7.1 mg/dL L 12/05/16 1200 Phosphorus Level 1.6 mg/dL L 12/05/16 1200 Lactic Acid Level 7.3 mmol/L *H 12/05/16 0600 Magnesium Level 1.9 mg/dL 12/05/16 1200 Total Bilirubin 0.5 mg/dL 12/05/16 1200 Aspartate Amino Transf (AST/SGOT) 153 U/L H 12/05/16 1200 Alanine Aminotransferase (ALT/SGPT) 191 U/L H 12/05/16 1200 Alkaline Phosphatase 57 U/L 12/05/16 1200 Total Creatine Kinase 2207 U/L H 12/05/16 1200 Creatine Kinase MB 84.7 ng/mL *H 12/05/16 1200 Creatine Kinase MB % 3.8 % 12/05/16 1200 Troponin T 0.398 ug/L *H 12/05/16 1200 Total Protein 4.6 g/dL L 12/05/16 1200 Albumin 2.7 g/dL L 12/05/16 1200 Prothrombin Time 13.6 sec H 12/05/16 1200 Prothromb Time International Ratio 1.26 ratio 12/05/16 1200 Prothrombin Time 13.0 sec H 12/05/16 0600 Prothromb Time International Ratio 1.21 ratio 12/05/16 0600 Prothrombin Time 13.2 sec H 12/05/16 0010 Prothromb Time International Ratio 1.23 ratio 12/05/16 0010 Result Diagram: 12/05/16 0600 12/05/16 06 Microbiology MRSA swab negative Sputum Sample negative Urine culture negative Blood cultures pending X-Rays, CTs and MRIs PROCEDURE: CT BRAIN WITHOUT CONTRAST IMPRESSION: 1. No acute intracranial findings. 2. Fluid within the right maxillary sinus and sphenoid sinuses. This is likely related to intubation; however acute sinusitis can also have this appearance. Dictated by: Alicia Napoles M.D. on 12/04/2016 at 16:35 PROCEDURE: X-RAY CHEST ONE VIEW, PORTABLE IMPRESSION: Generalized pulmonary edema, moderately severe. Endotracheal and nasogastric tubes in normal position. Dictated by: Pavel Castle M.D. on 12/04/2016 at 15:33 PROCEDURE: X-RAY CHEST ONE VIEW, PORTABLE 1. Interval placement of central venous catheter. No pneumothorax. 2. Other support devices in place. 3. Moderate pulmonary edema Dictated by: Ayaan Johnson M.D. on 12/04/2016 at 16:25 PROCEDURE: X-RAY CHEST ONE VIEW, PORTABLE IMPRESSION: Endotracheal, nasogastric tube and central line as noted above, no pneumothorax. Pulmonary edema pattern greater on the right than the left but mildly improved from one day ago. Dictated by: Pavel Castle M.D. on 12/05/2016 at 8:01 12-lead ECG Sinus tachycardia, left axis deviation, prolonged QT Assessment & Plan The patient is a 31-year-old with a history of opiate addiction who was brought to the ED by EMS unresponsive. Hospital day 1. Intubated 12/04. Acute hypoxic and hypocapnic respiratory failure. Present on admission. - Occurred following intentional inhalation of prescription opiates. Possibly secondary to acute noncardiogenic pulmonary edema associated with opiate inhalation. - Continue mechanical ventilation with PC-UMM, consult pulm-critical care, recs appreciated. Current MV settings as follows: FiO2: 45%, PEEP 12, R20, Ppeak 28 , Pmean 22. - Propofol and fentanyl gtt - Pulmonary consulted, appreciate their recommendations. Acute cardiac arrest. Present on admission. - Likely secondary to hypoxic respiratory failure. Pt became pulseless after becoming hypoxic. Likely not cardiogenic. - Cooling protocol initiated at 19:00 (12/04) will begin rewarming at 19:00 (12/05) - Mechanical ventilation, goal pCO2 40-45 mmHg. Abg @11:52 (12/05) pH 7.42, CO2 27, O2 111, Bicarb 18 - Buspirone PRN shivering, keppra if concern for seizure activity Possible sepsis, acute. Present on admission. - Blood pending. - Urine, sputum cultures negative - Respiratory viral PCR pending - Continue IV ceftriaxone. - Trend Lactic Acid Q6 until normalized. - Norepinephrine gtt, wean as tolerated - ID consulted, appreciate their recommendation. Possible upper GI bleed, acute. Present on admission. - Pt noted to have large amounts of blood in oropharynx and trachea. Unknown source - possible hematemesis from GI bleed vs hemoptysis, but most likely explanation includes epistaxis from snorting opiates. - No further sign of bleeding as of 12/04. Monitoring. - Monitor H&H - Protonix 40 mg IV BID Acute kidney injury. Present on admission. - Secondary to hypotension vs sepsis. - Monitoring ABD pressure. - Avoid nephrotoxic meds, renal dosing of meds. - Nephrology consulted, appreciate their recommendations. Anion gap metabolic acidosis, acute. Present on admission. - Secondary to lactic acidosis. - Continue to monitor lactic acid Q6 - Sodium acetate gtt, bicarb unavailable Elevated liver enzymes, acute. Present on admission. - LFTs elevated on admission. Secondary to hypoperfusion vs sepsis. - Continue to monitor LFTs. Elevated troponin, acute. Present on admission. - Troponin 0.724 on admission. Likely secondary to demand ischemia and myocardial injury during CPR/defib. Pt negative for amphetamines. Unlikely to have CAD. - Trend troponin Q6 until normalized. Trending down. History of opioid abuse. - Serum tox screen negative despite history of snorting opiates today. - Social work consult Maintenance: -Tube feed trickle at 10ml/hr for ulcer prevention. Nutrition consulted. - Insulin gtt for blood glucose control. Patient is FULL CODE Disposition: Patient is mechanically ventilated and sedated, blood cultures are still pending and empiric antibiotics are currently being administered. As patient is requiring continued critical care and support, length of stay is undetermined at this time. Pain Evaluation: Adequate Pain Control GI Prophylaxis: Proton Pump Inhibitor VTE Prophylaxis: Sub-Q Heparin (Unfractionated) Resuscitation Status: CPR: Attempt Resuscitation Attending Statement The patient was seen and examined together with Dr. Beyer on 12/05/2016 and I agree with the history, exam and plan as outlined in the note above. . Dom Beyer DO Dec 05, 2016 13:09 Jose A Troncoso MD Dec 05, 2016 15:03
[2016-12-05 13:14] LABS: TROPONIN T 0.398 ug/L (0.0-0.011)
[2016-12-05 13:17] LABS: BASOPHILS % (AUTO) 0 % (0-3); EOSINOPHILS % (AUTO) 0 % (0-5); MONOCYTES % (AUTO) 4 % (4-12); Mean Corpuscular Hemoglobin 29.5 pg (27.0-35.0); Mean Corpuscular Volume 81.4 fL (81-100); NEUTROPHILS % (AUTO) 51 % (40-74); Platelet Count 101 bil/L (150-400)
[2016-12-05 13:29] LABS: Magnesium 1.9 mg/dL (1.6-2.6)
--- NOTE | 2016-12-05 13:38 | NUR ---
Temp Pt has remained at 36.0, rewarming will start at 1730 today. UAP=15. 50cc out of tang from 2064-0551. D5 LR changed to D5 NS at 50cc/hr. TF started at 1300 Jevity 1.5 trickle feed through OG tube. No BM. BS 180's-200's, sliding scale ordered. Nimbex, fentanyl and propofol continues without titration. ECHO complete, awaiting results. Labs and ABG's completed. BP 120's/80's, MAP is to stay >85. Map is 89. CVP=15. cheetah numbers documented. Left IJ patent. No Artline. Family at bedside and consulted by and .
[2016-12-05] MEDS ORDERED: Glucose 40% Oral Gel 15 Gm Tube PO PRN (13:40)
--- NOTE | 2016-12-05 13:58 | DRSVH ---
[facility] [address] [place] [address] Echocardiogram Report Name: MIN ATKINSON Date: 12/05/2016 Height: 69 in Hospital Exam Location: [facility] Weight: 227 lb Gender: Male BSA: 2.2 m2 : 1985 Age: 31 yrs BP: 115/81 mm Hg Reason For Study: Cardiac Arrest Ordering Physician: [facility]OSPITALIST [facility] Performed By: Rissa Wilder [facility] Interpretation Summary The study quality was technically difficult. The left ventricle is grossly normal size. The ejection fraction is estimated to be 35-40%. There is mild to moderate global hypokinesis of the left ventricle. The right ventricle is mildly dilated. Right ventricular systolic function is moderately reduced. There is mild tricuspid regurgitation. The right ventricular systolic pressure is estimated at 41 mmHg assuming a right atrial pressure of 15 mm Hg. Procedure: A two-dimensional transthoracic echocardiogram with color flow and Doppler was performed. The study quality was technically difficult. Images from the parasternal window were difficult to obtain and are suboptimal in quality. The apical views were difficult to obtain and are suboptimal in quality. Most of the acoustic windows were suboptimal, but the best imaging was obtained from the subcostal window. There is no prior echocardiogram noted for this patient. The patient was imaged in a supine position and was intubated. The patient was in normal sinus rhythm during the exam. Left Ventricle: The left ventricle is grossly normal size. The ejection fraction is estimated to be 35-40%. There is mild to moderate global hypokinesis of the left ventricle. Diastolic function could not be accurately assessed due to unobtainable data. Right Ventricle: The right ventricle is mildly dilated. The right ventricle appears to be hypertrophied. Right ventricular systolic function is moderately reduced. Atria: The left atrium grossly appears normal in size. The right atrium grossly appears normal in size. Mitral Valve: The mitral valve is grossly normal. There is trace mitral regurgitation. Aortic Valve: The aortic valve is not well visualized. There is no hemodynamically significant valvular aortic stenosis. No aortic regurgitation is present. Tricuspid Valve: The tricuspid valve is not well visualized, but is grossly normal. There is mild tricuspid regurgitation. The right ventricular systolic pressure is estimated at 41 mmHg assuming a right atrial pressure of 15 mm Hg. Pulmonic Valve: The pulmonic valve is not well visualized. Great Vessels: Inspiratory collapse cannot be assessed because of mechanical ventilation, thus CVP cannot be estimated.. Pericardium/ Pleura There is no pericardial effusion. There is an anterior echo-free space consistent with a fat pad. There has been no significant change since the previous study. Doppler Measurements & Calculations TR max lindsay: 240.5 cm/sec TR max P.2 mmHg Reading Physician:RAVEN
--- NOTE | 2016-12-05 14:15 | CONS ---
[address] [address] CONSULTATION REPORT PATIENT: MIN ATKINSON : 1985 MR#: [id number] ADMIT: 12/04/2016 JOB ID: [id number] RENAL CONSULTATION: DATE OF SERVICE: 12/05/2016 HISTORY: This patient is a rather unfortunate, 31-year-old white male who was admitted to [facility] following a cardiopulmonary arrest secondary to presumed opiate overdose. Since admission, he has developed acute kidney injury and Renal consultation is being sought for further evaluation and management of his acute kidney injury and metabolic abnormalities. History has been obtained from the patient's brother and father. He has an extensive history of opiate dependence, and has completed rehabilitation within the last month or two. According to the patient's father, he had been having some difficulty in breathing, which has progressed over the last several days. According to the chart, he had been snorting OxyContin on the day of admission. He was found yesterday to be progressively lethargic and he was initially given Narcan which aroused him; however he became subsequently drowsy, hypotensive which responded to fluids. He subsequently went into cardiopulmonary arrest and at time of intubation there was a large amount of blood found in the orotracheal airway. There was some difficulty with intubation and he underwent CPR for approximately 40 minutes with multiple defibrillations. In the emergency department, the patient was subsequently paralyzed and placed on a ventilator. His initial laboratory showed a BUN and creatinine of 29 and 3.07, and a marked metabolic acidosis with a lactate level of 8. He was given aggressive hydration with Ringer's lactate and his potassium was supplemented. Over the evening and into the ice scraper, his blood pressure stabilized. His pressors were subsequently weaned. At time of my evaluation, he was getting Ringer's lactate, sedation, and antibiotics. PAST MEDICAL HISTORY: According to the family, his past medical history is significant only for opiate abuse. There is no history of any prior diabetes, hypertension or renal disease. PAST SURGICAL HISTORY: Unknown. ALLERGIES: IODINE. SOCIAL HISTORY: There is a history of opiate abuse as detailed above for which he has had intermittent periods of sobriety. REVIEW OF SYSTEMS: As detailed above. Otherwise, noncontributory or unobtainable. PHYSICAL EXAMINATION: Revealed a well-developed, 31-year-old white male who was sedated and on a ventilator. His blood pressure was 126/84 with a heart rate of 88. HEENT examination remarkable for fixed dilated pupils secondary to sedation. Neck is supple without adenopathy, thyromegaly or jugular venous distention. Lungs showed scattered rhonchi in all lung baez with some occasional expiratory wheezes. Heart was regular and rhythmical but tachycardic. Abdomen was soft, with diminished bowel sounds noted in all four quadrants. There was some mild hepatomegaly noted. Otherwise there were no masses noted. Extremities do not show any evidence of any clubbing, cyanosis, edema, half and half nails, splinter hemorrhages, petechiae, or purpura. There is no evidence of any joint effusions. LABORATORY EXAMINATION: This morning, his sodium is 142, potassium 4.5, chloride 105, bicarbonate 16, BUN and creatinine were 39 and 3.55. His glucose is 227 with a lactate of 7.3. His liver function studies are improving with an AST of 184, ALT of 190. His total CPK is 1954 and albumin is 2.8. Urinalysis showed a specific gravity of 1.025. There were greater than 50 WBCs per high-power field but no casts were noted. This morning his white count is 12.2, hemoglobin of 17.1, hematocrit 48.3. Red cell indices were normal. Platelet count was slightly decreased at 107. His differential showed 64 segs with 15 bands, 1 metamyelocyte and 5 myelocytes. IMAGING: Chest x-ray shows some mild pulmonary edema. IMPRESSION: 1. Acute tubular necrosis secondary to cardiopulmonary arrest and hypotension. 2. Lactic acidosis. RECOMMENDATION: I would like to check an intra-abdominal pressure on him and also get a renal ultrasound. I would also like to check a hepatitis profile along with an RPR. I feel we should probably switch his IV fluids to normal saline at 60 mL/minute and I would like to keep his systolic blood pressure above 90. I would also like to continue to follow his intake, output, and his laboratory parameters. Once again, I would like to thank you for allowing me to participate in the care of this rather unfortunate young man. I will be following him closely with you.
--- NOTE | 2016-12-05 14:32 | CONS ---
[address] [address] CONSULTATION REPORT PATIENT: MIN ATKINSON : 1985 MR#: [id number] ADMIT: 12/04/2016 JOB ID: [id number] DATE OF SERVICE: 12/05/2016 INFECTIOUS DISEASE CONSULTATION: I thank Dr. Troncoso for this timely consult. REASON FOR CONSULTATION: Cardiopulmonary arrest in a young man with bilateral pulmonary infiltrates. HISTORY OF PRESENT ILLNESS: The history is a bit fragmented. This is a 31-year-old gentleman who has sustained some major back injuries and has had trouble over the past few years with the abuse of prescription pain medications. After a long period of sobriety there are reports that he started to use prescription pain meds once again, within the last month or less. The patient has, however, continued to work in the [employer] and as recently as just December 03 and the morning of December 04 was seen and was reportedly doing reasonably well, though he had told us some family members that he had unusually fatigued and perhaps depressed in the days leading up to yesterday's events. I have interviewed numerous family members and there is no specific report of any fevers, chills, headache, or respiratory complaints, nor are there any genitourinary complaints that the patient voiced to anyone, but he is apparently fairly discrete about his personal symptoms, but it is known that he was fatigued and perhaps a bit lethargic. At a family dinner on December 03 though he was reported to be lively and looked relatively well. Yesterday morning (Wednesday) his mother reports that he seemed to get up for work late and then instead of leaving to go to work returned to his room in the family home. He then was discovered by his father after he could not be reached by his cell phone. His whereabouts were unknown. He was found to have some bleeding apparently from either his nose or oral cavity and was somewhat altered in terms of his mental status and in obvious respiratory distress. He reported that he had snorted a ground up 30 mg OxyContin tablet yesterday morning and after that had developed shortness of breath. EMS was summoned and the patient was actually able to help walk to the ambulance but then became very somnolent and eventually apneic. He developed a wide complex tachycardia which eventually deteriorated into VFIB. Attempts to intubate the patient in transport were apparently difficult as a great deal of blood was encountered during the intubation attempt. He eventually arrived in the ED, where there was a great deal of blood found in the airway, and during attempts at intubation which were made quite difficult by the bleeding he became pulseless and required off and on 40-45 minutes of CPR along with defibrillation, epinephrine, and ongoing code situation. He eventually was successfully intubated, paralyzed, and moved to the ICU. He required vasopressor agents initially after his admission to the ICU but these have subsequently been weaned off and he is now intubated, actively ventilated, and paralyzed on the ventilator. As noted above I have discussed this case situation with both his parents as well as with other family members in the room and though many people saw him in the 48 hours or so leading up to these events there is really no clear specific report of a complaint that would lead to a concern about preexisting infection other than some lethargy, depression, and perhaps generalized weakness. Shortness of breath was not noted until the dramatic events of yesterday afternoon. PAST MEDICAL HISTORY: 1. Notable for chronic back pain as result of two separate back injuries he sustained over the past decade. 2. Off and on prescription drug abuse. SOCIAL HISTORY: Unknown as the patient is intubated and sedated at this point. FAMILY HISTORY: Reviewed with relatives in the room and they are not aware of any history of TB in first- or second-degree relatives. REVIEW OF SYSTEMS: Obviously cannot be obtained from this intubated sedated gentleman. PHYSICAL EXAMINATION: Reveals a critically ill gentleman lying supine in his hospital bed. He has been afebrile during his short stay here in the hospital, currently 35.4. Pulse in the 80s, and it is a sinus rhythm. His current blood pressure 112/88. He is on 45% FiO2, 14 of PEEP, and saturating 100%. Examination of the head reveals no evidence of trauma. The eyes are without conjunctivitis or scleral icterus. Nose appears normal. There is no bleeding from there. Oral endotracheal tube and oral gastric tube are in good position. Neck is without adenopathy or evident JVD, though he has a dunbar which makes it difficult to examine for JVD. His lungs are notable for scattered rales bilaterally. Cardiac tones regular rate and rhythm at about 90 with no significant murmur. Abdomen is without organomegaly or distention. One cannot assess for tenderness, of course, as he is intubated and sedated. He does have a Randall catheter. Penis and scrotum appear normal. No suprapubic abnormalities or inguinal adenopathy is appreciated. Extremities are free of synovitis. There is some minimal fluid accumulation in the lower extremities below the knees developing. His hands and feet are cool to touch, with minimal pulses, but they are not grossly ischemic. No skin breakdown or skin rashes appreciated. Neurologic exam cannot be done as he is paralyzed. IVs appear in good position. LABORATORY DATA: White count 9700 in the ED. Note that a couple hours after admission white count was 9000 with a completely normal diff. Within 6 hours of admission his white count had jumped to 13,000 with basically 50% immature forms, bands, and metamyelocytes. This morning he still has quite a pronounced left shift with 15% bands and 5% myelocytes. His creatinine was 3.16 when he arrived in the ER, interestingly. It is now 3.55. Lactic acid has ranged from 9.2 yesterday evening to 7.3 a couple of hours ago. AST 184, down slightly from a peak of 220. ALT is currently 190. CPK 1254. CPK MB is 76, which of course is quite high. Albumin 2.8. Urinalysis had 11-50 white cells, heavy red cells greater than 50 we are seeing. Urine tox screen negative on admission. Salicylates and Tylenol negative. Micro studies include a negative MRSA screen. Sputum with polys but no predominance of organisms. Urine culture is pending at 24 hours, so far negative. Blood cultures from yesterday evening are pending. Chest radiographs and other studies were reviewed. His chest x-ray from today shows bilateral infiltrates consistent with pulmonary edema. A brain CT shows no acute findings. IMPRESSION: Though there are concerns about possible preexisting infection which may have contributed to the events of yesterday afternoon, I find that unlikely. The patient has not manifested any fever and he apparently voiced no focal infectious complaints prior to admission. His first white blood count was entirely normal in terms of the total white count as well as the differential and he developed a tremendous left shift after a difficult intubation and prolonged code, which is not unexpected. He does work in the [employer], which could predispose him to unusual infections such as Hantavirus, but this story seems entirely inconsistent with that. Which antibiotics are best used in a cooling protocol situations such as this after a prolonged code is unclear. We had reviewed this literature last year and there is little in the way of concrete recommendations, though our preference here in this intensive care unit has been to give Zosyn as prophylaxis for complicated aspiration events and to prolong the course of Zosyn for just a few days while we await recovery and rewarming. RECOMMENDATIONS: 1. HIV and hepatitis C will be ordered as part of the routine care of a patient of this age with limited medical database. We obviously cannot ask him if he agrees to HIV testing but I think at this point it is justified as it would change our approach if it were to be found positive. 2. Will change the ceftriaxone he is receiving to renally adjusted. Zosyn for better anaerobe coverage. 3. Will continue to follow this complex case with you. 4. I do not think that additional coverage for organisms such as MRSA or highly resistant gram-negative rods is indicated in this young man who has not been a frequent consumer of medical care has not been hospitalized for a long period of time. There is little here to suggest a preceding infection contributing to these events and I think our goal is to prevent the possible development of aspiration pneumonia. Thank you very much.
[2016-12-05] MEDS: Norepineph 8,000 mCg/250 mL NS 8,000 MCG in IV Premix 1 EACH IV SCH (16:30)
--- NOTE | 2016-12-05 16:59 | NUR ---
CORRECTION CVP=15, not UAP. UAP has been 6-8 today.
[2016-12-05] MEDS: Insulin LISPRO 300 Unit/3 mL Inj SUBQ SCH ×2 (17:17→22:00)
[2016-12-05 17:26] LABS: Magnesium 1.8 mg/dL (1.6-2.6)
--- NOTE | 2016-12-05 19:24 | DRSVH ---
PROCEDURE: US RETROPERITONEAL SONOGRAM ([id number]) INDICATIONS: r/o pyelo TECHNIQUE: Real-time scanning was performed of the kidneys and bladder, with image documentation. COMPARISON: None. FINDINGS: Kidneys: Kidneys are normal in size. Right kidney measures 12.0 cm long; left kidney measures 11.0 cm long. Right renal cortical thickness is 1.6 cm; left renal cortical thickness is 1.8 cm. Renal c ortical echotexture is normal. No hydronephrosis or nephrolithiasis. No suspicious solid mass lesio ns. Bladder: Not evaluated due to Randall catheter emptying the bladder lumen. Miscellaneous: No free pelvic fluid. IMPRESSION: A no hydronephrosis or nephrolithiasis seen. Normal renal cortical length. Bladder is emptied by a Randall catheter in place. Dictated by: Pavel Castle M.D. on 12/05/2016 at 19:21 Approved by: Pavel Castle M.D. on 12/05/2016 at 19:22
[2016-12-05] MEDS ORDERED: Sodium Phosphate Inj 40 MEQ in Dextrose 5% 500 ML IV ONE (19:40)
--- NOTE | 2016-12-05 20:55 | PCM.PNMED ---
Subjective Date of Service Dec 05, 2016 Subjective Late morning on 12/05 I was told by the patient's attending, Dr. Troncoso, that he has consulted Nephrology for fluid and electrolyte management and to address the LEANDRO along with Infectious Disease to address ID issues. I asked him to specify my role in the patient's care going forward and he has asked that I manage his ventilation and sedation. All other problems in this case will be the responsibility of the primary team and other consultants they choose. Exam Vital Signs Vital Sign - Last Date Time Temp Pulse Resp B/P Pulse Ox O2 Delivery O2 Flow Rate FiO2 12/05/16 19:44 84 134/91 100 45 12/05/16 16:30 Ventilator 12/05/16 16:30 35.4 24 Intake and Output 12/04/16 12/04/16 12/05/16 Cumulative From/Thru 15:00 23:00 07:00 12/04/16 15:53 - 12/05/16 06:22 Intake Total 2295 ml 2799 ml 5094 ml Output Total 200 ml 445 ml 645 ml Balance 2095 ml 2354 ml 4449 ml Intake IV Total 2295 ml 2799 ml 5094 ml Output Urine Total 200 ml 245 ml 445 ml Gastric Drainage Total 200 ml 200 ml Lab and Diagnostics Result Diagram: 12/05/16 1200 12/05/16 1630 Microbiology MRSA swab negative Sputum Sample negative Urine culture negative Blood cultures pending X-Rays, CTs and MRIs PROCEDURE: CT BRAIN WITHOUT CONTRAST IMPRESSION: 1. No acute intracranial findings. 2. Fluid within the right maxillary sinus and sphenoid sinuses. This is likely related to intubation; however acute sinusitis can also have this appearance. Dictated by: Alicia Napoles M.D. on 12/04/2016 at 16:35 PROCEDURE: X-RAY CHEST ONE VIEW, PORTABLE IMPRESSION: Generalized pulmonary edema, moderately severe. Endotracheal and nasogastric tubes in normal position. Dictated by: Pavel Castle M.D. on 12/04/2016 at 15:33 PROCEDURE: X-RAY CHEST ONE VIEW, PORTABLE 1. Interval placement of central venous catheter. No pneumothorax. 2. Other support devices in place. 3. Moderate pulmonary edema Dictated by: Ayaan Johnson M.D. on 12/04/2016 at 16:25 PROCEDURE: X-RAY CHEST ONE VIEW, PORTABLE IMPRESSION: Endotracheal, nasogastric tube and central line as noted above, no pneumothorax. Pulmonary edema pattern greater on the right than the left but mildly improved from one day ago. Dictated by: Pavel Castle M.D. on 12/05/2016 at 8:01 12-lead ECG Sinus tachycardia, left axis deviation, prolonged QT Assessment & Plan The patient is a 31-year-old with a history of opiate addiction who was brought to the ED by EMS unresponsive. Hospital day 1. Intubated 12/04. Acute hypoxic and hypocapnic respiratory failure. Present on admission. - Occurred following intentional inhalation of prescription opiates. Possibly secondary to acute noncardiogenic pulmonary edema associated with opiate inhalation. - Continue mechanical ventilation with PC-UMM, consult pulm-critical care, recs appreciated. Current MV settings as follows: FiO2: 45%, PEEP 12, R20, Ppeak 28 , Pmean 22. - Propofol and fentanyl gtt - Pulmonary consulted, appreciate their recommendations. Acute cardiac arrest. Present on admission. - Likely secondary to hypoxic respiratory failure. Pt became pulseless after becoming hypoxic. Likely not cardiogenic. - Cooling protocol initiated at 19:00 (12/04) will begin rewarming at 19:00 (12/05) - Mechanical ventilation, goal pCO2 40-45 mmHg. Abg @11:52 (12/05) pH 7.42, CO2 27, O2 111, Bicarb 18 - Buspirone PRN shivering, keppra if concern for seizure activity Possible sepsis, acute. Present on admission. - Blood pending. - Urine, sputum cultures negative - Respiratory viral PCR pending - Continue IV ceftriaxone. - Trend Lactic Acid Q6 until normalized. - Norepinephrine gtt, wean as tolerated - ID consulted, appreciate their recommendation. Possible upper GI bleed, acute. Present on admission. - Pt noted to have large amounts of blood in oropharynx and trachea. Unknown source - possible hematemesis from GI bleed vs hemoptysis, but most likely explanation includes epistaxis from snorting opiates. - No further sign of bleeding as of 12/04. Monitoring. - Monitor H&H - Protonix 40 mg IV BID Acute kidney injury. Present on admission. - Secondary to hypotension vs sepsis. - Monitoring ABD pressure. - Avoid nephrotoxic meds, renal dosing of meds. - Nephrology consulted, appreciate their recommendations. Anion gap metabolic acidosis, acute. Present on admission. - Secondary to lactic acidosis. - Continue to monitor lactic acid Q6 - Sodium acetate gtt, bicarb unavailable Elevated liver enzymes, acute. Present on admission. - LFTs elevated on admission. Secondary to hypoperfusion vs sepsis. - Continue to monitor LFTs. Elevated troponin, acute. Present on admission. - Troponin 0.724 on admission. Likely secondary to demand ischemia and myocardial injury during CPR/defib. Pt negative for amphetamines. Unlikely to have CAD. - Trend troponin Q6 until normalized. Trending down. History of opioid abuse. - Serum tox screen negative despite history of snorting opiates today. - Social work consult Maintenance: -Tube feed trickle at 10ml/hr for ulcer prevention. Nutrition consulted. - Insulin gtt for blood glucose control. Patient is FULL CODE Disposition: Patient is mechanically ventilated and sedated, blood cultures are still pending and empiric antibiotics are currently being administered. As patient is requiring continued critical care and support, length of stay is undetermined at this time. GI Prophylaxis: Proton Pump Inhibitor VTE Prophylaxis: Sub-Q Heparin (Unfractionated) Resuscitation Status: CPR: Attempt Resuscitation Moy Mccormick MD Dec 05, 2016 20:55 Moy Mccormick MD Dec 05, 2016 20:55
[2016-12-05 22:20] LABS: TROPONIN T 0.243 ug/L (0.0-0.011)
[2016-12-06] VITALS (13 sets, daily range): BP systolic 101–155; BP diastolic 56–80; PULSE 77–126; RESP 20; O2SAT 99–100
[2016-12-06] MEDS: Albuterol HFA 200 Puff Inhaler (Vent Pts Only) INHALATION SCH ×6 (00:27→19:58)
[2016-12-06] MEDS: Chlorhexidine 0.12% 15 mL Oral Solution MT SCH ×6 (01:07→21:38)
[2016-12-06] MEDS: Heparin 5,000 Unit/mL Inj SUBQ SCH ×3 (01:07→16:03)
[2016-12-06 01:12] LABS: Magnesium 1.9 mg/dL (1.6-2.6); Phosphorus 5.4 mg/dL (2.5-4.9); TROPONIN T 0.267 ug/L (0.0-0.011)
--- NOTE | 2016-12-06 03:37 | NUR ---
Targeted temp. Sedation, Seizure like activity Vs as noted. Targeted temperature therapy started rewarming 1929 and completed 199. Nimbex gtt d/poli 0130. Sedation of Fentanyl 50mcg/h and propofol 20mcg/kg/min effective for sedation with BIS 36-42. Pt bathed 299 with generalized tremor activity noted after stimulation. No posturing noted. HR increased from 90-110. Sats continue 100% on 45% fio2. Dr Mauro notified and to bedside to assess. Ativan 2mg iv given x1 with decrease in amplitude of tremors to very fine EMG noted on BIS. Temp 37.2 with Arctic sun maintaining temp 37.0. Rita at bedside as family sanchez. Addendum: 12/06/16 at 0424 by LUCIEN AMANDA RN Dr Mauro at bedside to reassess. Second ativan 2mg iv given for ongoing fine EMG on BIS and palpation. Fine tremors resolved with BIS of 41. Keppra 2000mg iv given.
[2016-12-06] MEDS ORDERED: LEVETIRACETAM IV ONE (04:00)
[2016-12-06] MEDS ORDERED: levETIRAcetam Inj 1,500 MG in Dextrose 5% 100 ML IV ONE (04:00)
[2016-12-06 05:29] LABS: Mean Corpuscular Hemoglobin 29.3 pg (27.0-35.0); Mean Corpuscular Volume 82.2 fL (81-100)
[2016-12-06 05:49] LABS: BASOPHILS % (AUTO) 0 % (0-3); EOSINOPHILS % (AUTO) 0 % (0-5); MONOCYTES % (AUTO) 1 % (4-12); NEUTROPHILS % (AUTO) 68 % (40-74); Platelet Count 76 bil/L (150-400)
--- NOTE | 2016-12-06 06:05 | ABG ---
DateTimeAnalyzed 05:57:00 -_ pH ____7.389 - 7.350 7.450 pCO2 ___30.2__ -mmHg 35.0 45.0 pO2 ___49.1__ -mmHg 69.0 116 HCO3- ___17.8__ -mmol/L 22.0 26.0 ABE ___-5.5__ -mmol/L -2.0 2.0 tHb ___13.6__ -g/dL O2Hb ___84.1__ -% COHb ____0.7__ -% MetHb ____1.3__ -% sO2 ___85.8__ -% 25.0 FIO2 ___21.0__ -% PEEP ___10.0__ -cmH2O Set_RR ___20.0__ -b/min Drawn By RN - Date/Time Notified____ 06:04:00 -_ Spontaneous_RR ___20.0__ -b/min Oxygen Device 1 VENTILATOR - Notified By TLA - Notified Whom Enoch H-RN - B 756 -mmHg tO2 ___16.1__ -Vol% Harsh test N/A -
[2016-12-06] MEDS: Propofol Inj 1,000,000 MCG in IV Premix 1 EACH IV SCH ×5 (06:16→21:32)
--- NOTE | 2016-12-06 06:19 | NUR ---
Seizures 0600 Noted generalized seizure like tremors without desats. Ativan 2mg iv given x2 with resolution of tremors. Mother and father at bedside and updated to changes through the night. Dr Mauro updated.
[2016-12-06] MEDS: Dextrose 5% 0.9% NaCl 1,000 ML IV SCH ×2 (06:33→21:38)
[2016-12-06] MEDS: Insulin LISPRO 300 Unit/3 mL Inj SUBQ SCH ×4 (08:00→22:00)
[2016-12-06] MEDS: LacriLube S.O.P. 3.5 Gm Ophthalmic Ointment BOTH_EYES SCH ×2 (08:05→21:32)
[2016-12-06] MEDS: Pantoprazole 4 mg/mL 10 mL Inj IVPUSH SCH ×2 (08:05→16:03)
[2016-12-06] MEDS: Piperacillin-Tazo 3.375 Gm Inj 3.375 GM in Dextrose 5% Minibag Plus 50 ML IV SCH ×2 (08:06→21:38)
[2016-12-06] MEDS: fentaNYL 2,500 mCg/250 mL 2,500 MCG in IV Premix 1 EACH IV PRN (08:12)
[2016-12-06] MEDS ORDERED: Acetaminophen IV 1,000 MG in IV Premix 1 EACH IV ONE (08:15)
[2016-12-06] MEDS: Norepineph 8,000 mCg/250 mL NS 8,000 MCG in IV Premix 1 EACH IV SCH ×3 (08:20→21:28)
--- NOTE | 2016-12-06 08:28 | DRSVH ---
PROCEDURE: X-RAY CHEST ONE VIEW, PORTABLE ([id number]) INDICATIONS: resp failure, pulm edema TECHNIQUE: One view of the chest was acquired. COMPARISON: None. FINDINGS: Surgical changes and devices: There is an endotracheal tube 5 cm above the mariaelena. There is a left in ternal jugular central line with the tip of the catheter just beyond the azygos vein in the region of superior vena cava radiographically. video producer leads are seen over the chest. There is an NG t ube into the stomach. Lungs and pleura: No pleural effusions or pneumothorax. Lungs have significantly improved with mini mal patchy density in right perihilar area. Mediastinum: Mediastinal contours appear normal. Heart size is normal. Bones and chest wall: No suspicious bony lesions. Overlying soft tissues appear unremarkable. IMPRESSION: Improved to resolved perihilar pulmonary edema. Tubes and lines are appropriate in position radiographically. Dictated by: Kyaw Mcclain M.D. on 12/06/2016 at 8:22 Approved by: Kyaw Mcclain M.D. on 12/06/2016 at 8:26
--- NOTE | 2016-12-06 08:51 | PCM.PNMED ---
Subjective Date of Service Dec 06, 2016 Subjective 31 yo man with long history of opiate addiction brought to ED by paramedics who were called by a family member for weakness and shortness of breath. Shortly after being allowed to walk to the ambulance patient developed respiratory distress/failure and became unresponsive and apneic. Patient had told his father that he had recently "snorted" 30 mg of crushed oxycontin. His father had observed fresh blood in the patients bed and toilet. Paramedics were attempting intubation in the ambulance when they arrived to the ED at [facility]. There was significant blood in the airway and intubation was difficult. During attempts to secure the patients airway he progressed to a wide complex tachycardia and then VF before an airway could be established by the ED physician. Best estimate of time to ROSC is 40 minutes based on my discussion with the ED physician after I had been called to the ED to address the patient' s refractory hypoxemia. He received 2 U universal donor blood while in the ED although his initial Hct was 50. His CXR showed diffuse alveolar edema. While still in the ED his SpO2 rapidly christen to 100% after pharmacologic paralysis and institution of PC-UMM ventilation. Since admission he has evidence for sepsis with acidemia, bandemia, azotemia but cultures of blood, urine and respiratory secretions are all pending. Given his prolonged episode of CPR and resucitation in the ED, he was placed on TTM protocol. Patient allowed to rewarm to 37 earlier today. At some point he began to exhibit some involuntary movements that caused concern for seizures and was given 2 gm Keppra and several 2 mg bolus doses of Ativan. Following the Ativan, he had brief cessation of the generalized fine high frequency tremors that were interpreted as seizure. This morning I observed the patient having frequent paroxysms of generalized high frequency tremors that appear most consistent with rigors/shivering. These are punctuated by some jerking movements mostly involving the head and with extension of the neck. No obvious limb myoclonus observed. No spontaneous eye opening. Exam Vital Signs Vital Sign - Last Date Time Temp Pulse Resp B/P Pulse Ox O2 Delivery O2 Flow Rate FiO2 12/06/16 07:53 114 112/68 100 45 12/06/16 04:00 Ventilator 12/06/16 04:00 37.2 20 Intake and Output 12/05/16 12/05/16 12/06/16 Cumulative From/Thru 15:00 23:00 07:00 12/04/16 15:53 - 12/06/16 05:35 Intake Total 1981 ml 1764 ml 8839 ml Output Total 340 ml 220 ml 1205 ml Balance 1641 ml 1544 ml 7634 ml Intake IV Total 1981 ml 1764 ml 8839 ml Output Urine Total 110 ml 220 ml 775 ml Gastric Drainage Total 230 ml 0 ml 430 ml Exam WDWN young man orally intubated, sedated and with spontaneous involuntary movements as described above. Lungs Decreased BS, fine crackles, NO wheezes CV RRR, no m/g/r Abd Slightly firm, No obvious tenderness, NO BTs, mass, HSM Ext Warm, 1+ edema UE and LE's IVs and Medications Medications Reviewed: Medications were reviewed in detail Lab and Diagnostics Result Diagram: 12/06/16 0500 12/06/16 0010 Microbiology MRSA swab negative Sputum Sample negative Urine culture negative Blood cultures pending X-Rays, CTs and MRIs PROCEDURE: CT BRAIN WITHOUT CONTRAST IMPRESSION: 1. No acute intracranial findings. 2. Fluid within the right maxillary sinus and sphenoid sinuses. This is likely related to intubation; however acute sinusitis can also have this appearance. Dictated by: Alicia Napoles M.D. on 12/04/2016 at 16:35 PROCEDURE: X-RAY CHEST ONE VIEW, PORTABLE IMPRESSION: Generalized pulmonary edema, moderately severe. Endotracheal and nasogastric tubes in normal position. Dictated by: Pavel Castle M.D. on 12/04/2016 at 15:33 PROCEDURE: X-RAY CHEST ONE VIEW, PORTABLE 1. Interval placement of central venous catheter. No pneumothorax. 2. Other support devices in place. 3. Moderate pulmonary edema Dictated by: Ayaan Johnson M.D. on 12/04/2016 at 16:25 PROCEDURE: X-RAY CHEST ONE VIEW, PORTABLE IMPRESSION: Endotracheal, nasogastric tube and central line as noted above, no pneumothorax. Pulmonary edema pattern greater on the right than the left but mildly improved from one day ago. Dictated by: Pavel Castle M.D. on 12/05/2016 at 8:01 12-lead ECG Sinus tachycardia, left axis deviation, prolonged QT Cardiac Echo Impressions LVEF 35-40% RV dilated and hypokinetic. Technically difficult study Assessment & Plan IMP Acute respiratory failure, pulm edema pattern on admission, ? noncardiac, now improved on PC-UMM, FiO2 down to 0.45 and PEEP weaned to 10. VT and VF arrest in ED likely secondary to hypoxemia, prolonged CPR Sepsis, with fever, bandemia and lactic acidosis on admission. no clear source although hematuria, bacteriuria and pyuria on UA, cultures all pending. Retroperitoneal US yesterday normal. Cultures NGTD. On empiric abx per ID Lactic acidosis LEANDRO Possible anoxic ischemic brain injury Opiate abuse REC Normalize I:E ratio, wean PEEP and FiO2 as tolerates Serial labs Treat for possible shivering with acetaminophen to reset hypothalamic set point and consider single dose of meperidine to see if rigors divya Continue empiric abx per ID Repeat cultures ? Other care per primary team and other consultants GI Prophylaxis: Proton Pump Inhibitor VTE Prophylaxis: Sub-Q Heparin (Unfractionated) Resuscitation Status: CPR: Attempt Resuscitation Moy Mccormick MD Dec 06, 2016 08:26
[2016-12-06] MEDS: Midazolam Inj 100 MG in IV Premix 1 EACH IV PRN ×2 (09:31→21:28)
--- NOTE | 2016-12-06 12:45 | CONS ---
[address] [address] CONSULTATION REPORT PATIENT: MIN ATKINSON : 1985 MR#: [id number] ADMIT: 12/04/2016 JOB ID: [id number] DATE OF SERVICE: 12/06/2016 NEUROLOGY CONSULTATION: REQUESTING PHYSICIAN: Moy Narayan MD, for prognosis, possible hypoxic injury. HISTORY OF PRESENT ILLNESS: The patient is a 31-year-old gentleman who was admitted on December 04, 2016 following a drug overdose with "snorting" OxyContin at 7 a.m. on the same date. EMS was called and initially the patient was able to speak and walk, but became drowsy. He failed Narcan treatment, was found to be hypotensive, and stopped breathing in the ambulance. The counselor camp were unable to intubate until he arrived at the hospital where emergency department physicians assisted. He was continuously bagged with oxygen until arrival at the emergency department at which time no pulse could be detected. He was found to be in ventricular fibrillation. ACLS protocols were initiated and treatment continued with shocking a number of times and several doses of epinephrine before circulation was maintained. It was estimated that 45 minutes of aggressive resuscitation were needed before he could maintain circulation with normal heart rate and blood pressure. Chest x-rays indicated bilateral pneumothorax. He has remained intubated and on a respirator with improving pulmonary function. He has both kidney involvement and possible infection. Neurology was called due to possible seizure activity by Dr. Alex Kothari who is the patient's uncle. He called this provider to discuss the implication and prognosis based on evidence of seizure activity. The patients family requested neurology consultation for prognosis. The patient did receive levetiracetam over night by the hospitalist. In discussing the activity witnessed by Dr. Moy Narayan the ICU auto wash buffer, this appears to have been rigors while shivering. The patient has been on cooling protocol. Tremulousness in the right shoulder was witnessed by nursing staff and myself today. There was no associated eye movement or rigidity in the limbs. Levetiracetam was not continued by Dr. Narayan. He is no longer on paralytics. PAST MEDICAL HISTORY: Patient has history of narcotics abuse and has been on Suboxone, recently stopped. OUTPATIENT MEDICATIONS: None known. DRUG ALLERGIES: IODINE. SOCIAL HISTORY: The patient has a large extended family including mom and dad who are at the bedside. Other social history is not appreciated or known. REVIEW OF SYSTEMS: Cannot be obtained due to patient's intubation. INPATIENT MEDICATIONS: IV propofol, norepinephrine midazolam, pantoprazole, albuterol. Lorazepam p.r.n. for seizure-like activity, last given at 7:44 a.m., 2 mg. Levetiracetam given at 4 a.m. December 06, 2016 and 4:15 December 06, 2016. PHYSICAL EXAMINATION: The patient is unresponsive, intubated, and on a respirator. Vital signs: Blood pressure 106/56, pulse 108, temperature 37.3, pulse oximetry 100% on room air. Head is normocephalic, atraumatic. No evidence of carotid bruits. Lungs: Diminished breath sounds. Extremities: Minimal edema upper and lower extremities. NEUROLOGIC EXAMINATION: The patient is in a chemically induced coma and unresponsive to voice and pain. This is a limited examination due to chemically induced coma. Cranial nerves: Pupils are conjugate. No further evaluation of cranial nerves performed due to comatose state. Motor: No spontaneous movement. Intermittent high-frequency rhythmic tremor in the shoulder not seen generalized. Deep tendon reflexes: 2+ throughout with plantar reflex flexor bilaterally. Sensation: Cannot be assessed due to chemically induced coma. Tone: Intact throughout. Coordination and gait cannot be evaluated further due to chemically induced coma. IMAGING STUDIES: As above. I personally reviewed the head CT on the PAC system from December 04, 2016 which shows no obvious abnormalities in the parenchyma. Incidental note of right maxillary and sphenoidal sinus fluid was appreciated by radiology. LABORATORY STUDIES: White count 11.4, hemoglobin and hematocrit 13.7/38.4, platelets of 76. U-tox screen is negative. Troponin 0.277. Lactic acid 5.3, down from. 9.2. Sodium 143, carbon dioxide 16. Please see chart for detail of laboratory studies. ASSESSMENT AND RECOMMENDATION: The patient is a 31-year-old gentleman who sustained hypoxemia due to drug overdose with a prolonged time until intubation which resulted in complex tachycardia and ventricular fibrillation before the airway could be established. He had a prolonged resuscitation, estimated to be up to 45 minutes, before he resumed circulation. The patient continues to have episodes of tremulousness which are thought to be related to shivering following cooling protocol. He was initially given Tylenol, Ativan, and two doses of levetiracetam. Shivering continues and is easily truncated with a bolus of propofol. The patient has intermittent fevers with concern for sepsis and no obvious infective source. He also has acute kidney injury. Family members are extremely concerned about the abnormal activity. Dr. Kothari is the patient's uncle and requested my opinion regarding prognosis. It appears that the patient's motoric activity it is more likely to be shivering. It does respond to propofol. Without EEG at the time it cannot be stated with certainty that this does not represent seizure activity but it apprears more consistent with shivering. At this time I agree with Dr. Naraayn that managing the patient with current medications without the additional use of levetiracetam/Keppra is advised. Increasing propofol as tolerated seems to be a good solution at this time; however, if more rhythmic movement develops and does not respond, reinitiating levetiracetam is advised. I will defer to Dr. Narayan for management and unless asked to do otherwise. The patient did sustain a prolonged period of hypoxia, but not anoxia, therefore prognosis is less certain, but his other medical problems complicate prognosis as well. This was conveyed to the family member as well.The patient's father has seen other family members in seizure-related events. The patient's mother is extremely concerned and anxious also. I explained that we cannot assess or comment on recovery until the patient has completed warming protocol and his other medical issues resolve. I agree that an EEG tomorrow will both help to know if there is subclinical seizure activity and also help assess brain function. My recommendations and comments were shared with Dr. Narayan. Thank you for this consultation. I will comment further once the EEG is completed. Please call if needed. Over half of this 1 hour consultation was spent in counseling with the family. RAAD
--- NOTE | 2016-12-06 13:50 | NUR ---
P:Shivering vs Seizure activity. I: Family very upset when entering the room this am due to pt shiver vs seizure activity. at bedside to see the pt before Ativan 2mg IV x2 given. Activity stopped for a small amount of time and then resumed. Family called Dr. Kothari into the room and he called Dr. Ruiz to consult. Dr. Ruiz here and decision made to start Versed gtt at 2mg/hr now increased to 3mg/hr. Propofol increased to 50mcqs to stop activity. BIS 90 while pt shivering. Tylenol IV given stat. BIS now 35 and no shivering or seizure activity noted. Nephrology here and will place temporary HD cath tomorrow if needed. Fentanyl gtt remains at 50mcqs/hr. OGT LCS with green output. Randall patent and urine output minimal. Nephrology aware. CVP 11-12. Turned Q 2 hours. Cheetah numbers stable. Family at bedside and updated on pt's condition and plan of care. Vent decreased to 40% FiO2 and peep decreased to 7 with sats stable. E: Guarded S: No restraints needed or applied as pt is not awake or have any purposeful movement. Frequent rounding.
[2016-12-06] MEDS ORDERED: Furosemide 10 mg/mL 10 mL Inj IVPUSH ONE (14:15)
[2016-12-06] MEDS ORDERED: Acetaminophen IV 1,000 MG in IV Premix 1 EACH IV PRN (14:15)
--- NOTE | 2016-12-06 14:20 | PCM.PNNEPH ---
Subjective Date of Service Dec 06, 2016 Subjective (+) shivering, tremor. s/p IV ativan, versed, propofol, tylenol. Became hypotensive when sedative meds increased. Norepinephrine started 0.1 mcg/kg/min. Bladder pressure 6-8 mmHg. CVP 11-12 mmHg. UOP 355 ml. Exam Vital Signs Vital Sign - Last Date Time Temp Pulse Resp B/P Pulse Ox O2 Delivery O2 Flow Rate FiO2 12/06/16 12:34 36.2 97 20 101/59 100 Mechanical Ventilator 40 Intake and Output 12/05/16 12/05/16 12/06/16 Cumulative From/Thru 15:00 23:00 07:00 12/04/16 15:53 - 12/06/16 05:35 Intake Total 1981 ml 1764 ml 8839 ml Output Total 340 ml 220 ml 1205 ml Balance 1641 ml 1544 ml 7634 ml Intake IV Total 1981 ml 1764 ml 8839 ml Output Urine Total 110 ml 220 ml 775 ml Gastric Drainage Total 230 ml 0 ml 430 ml Exam GENERAL: Intubated and sedated. HEENT: Head is normocephalic and atraumatic. ET-Tube, OG tube in place. NECK: Supple, no elevation of JVD, No carotid bruits. Left IJ triple lumen in place. LUNGS: On full becki support, equal BS B/L. No wheezing or rhonchi. HEART: Normal S1/S2, Regular rate and rhythm, no murmurs, rubs or gallops. 2+ pules throughout. ABDOMEN: Soft, nontender, and nondistended. Positive bowel sounds. No hepatosplenomegaly was noted. EXTREMITIES: trace edema. : Randall cath in place with scant urine. Lab and Diagnostics Result Diagram: 12/06/16 0500 12/06/16 0010 Microbiology MRSA swab negative Sputum Sample negative Urine culture negative Blood cultures pending X-Rays, CTs and MRIs PROCEDURE: CT BRAIN WITHOUT CONTRAST IMPRESSION: 1. No acute intracranial findings. 2. Fluid within the right maxillary sinus and sphenoid sinuses. This is likely related to intubation; however acute sinusitis can also have this appearance. Dictated by: Alicia Napoles M.D. on 12/04/2016 at 16:35 PROCEDURE: X-RAY CHEST ONE VIEW, PORTABLE IMPRESSION: Generalized pulmonary edema, moderately severe. Endotracheal and nasogastric tubes in normal position. Dictated by: Pavel Castle M.D. on 12/04/2016 at 15:33 PROCEDURE: X-RAY CHEST ONE VIEW, PORTABLE 1. Interval placement of central venous catheter. No pneumothorax. 2. Other support devices in place. 3. Moderate pulmonary edema Dictated by: Ayaan Johnson M.D. on 12/04/2016 at 16:25 PROCEDURE: X-RAY CHEST ONE VIEW, PORTABLE IMPRESSION: Endotracheal, nasogastric tube and central line as noted above, no pneumothorax. Pulmonary edema pattern greater on the right than the left but mildly improved from one day ago. Dictated by: Pavel Castle M.D. on 12/05/2016 at 8:01 12-lead ECG Sinus tachycardia, left axis deviation, prolonged QT Cardiac Echo Impressions LVEF 35-40% RV dilated and hypokinetic. Technically difficult study Plan Impression 1. Oliguric ATN. 2. S/p Vtach/Vfib arrest with prolonged CPR. 3. Acute respiratory failure. 4. Anion gap metabolic acidosis secondary to lactic acid and uremia. 5. SIRS, suspected sepsis, aspiration PNA. 6. Suspected anoxic brain injury. 7. Opiate dependence. Plan: Try IV lasix whether we can convert oliguric to nonoliguric ATN. If not responding with supportive treatment,will arrange for HD in am. Keep MAP > 65 mmHg. Avoid nephrotoxins, renally dose medications. Gurpreet Silverman MD Dec 06, 2016 14:20
--- NOTE | 2016-12-06 15:27 | NUR ---
P: Abnormal Labs I: Creatinine up to6.7 and K+ 3.4. Lasix 80 mg IV given per Nephrology. Lactic acid up to 7.6. Dr. Spear notified and will contact nephrology to decide orders for electrolyte replacement with elevated creatinine. E: Guarded S: Frequent rounding.
--- NOTE | 2016-12-06 17:09 | NUR ---
Social Work: Brief Note Data: Pt is a 31 y/o male admitted for cardiac arrest. Pt's PCP is Dr Rankin, pt's insurance is [employer]. EMR reviewed, readmit score is 1, low. Pt discussed in multidisciplinary rounds. MD states pt continues to be vented. SLIP SEAT COVERER acknowledges MD order for SW CD assessment. SLIP SEAT COVERER will complete initial assessment and chemical dependency assessment when appropriate. Assessment: Pt who is independent at baseline, opiate abuse. Currently vented, not capable of self care. Plan: SLIP SEAT COVERER will complete initial assessment and chemical dependency assessment when appropriate. SLIP SEAT COVERER will continue to follow. CHAPINCITO Daniels
--- NOTE | 2016-12-06 17:13 | PCM.PNMED ---
Subjective Date of Service Dec 06, 2016 Subjective The patient is a 31-year-old with a history of opiate addiction who was brought to the ED by EMS unresponsive. The patient was found altered and in some respiratory distress, complaining of sleepiness and shortness of breath. The patient reported that he had "snorted" a ground up 30 mg Oxycontin tablet at 7 AM today, about 7 hours prior. He has a long history of opiate abuse and has completed inpatient detox/rehabilitation on at least one prior occasion this year and had been drug free until November 03 when he relapsed and began using again. The patient was admitted to the CCU for acute hypoxic hypercapnic respiratory arrest, acute cardiac arrest, and possible sepsis. Today the patient remains intubated, sedated, and essentially not responsive to external stimuli. The patient's family is in the room and requires frequent updates as to the state of his current condition and treatment plan moving forward. They become very agitated if any mention of this being a terminal event is brought up. Overnight the patient completed rewarming protocol with manifestation of severe fine motor tremor thought to be shivering though concern for seizure still exists. The patient's shivering was transiently responsive to Benzo, and with a slightly more sustained response to Tylenol. Comprehensive ROS could not be obtained in this intubated and sedated patient. Exam Vital Signs Vital Sign - Last Date Time Temp Pulse Resp B/P Pulse Ox O2 Delivery O2 Flow Rate FiO2 12/06/16 16:30 37.0 103 20 104/56 100 Mechanical Ventilator 40 Intake and Output 12/05/16 12/05/16 12/06/16 Cumulative From/Thru 15:00 23:00 07:00 12/04/16 15:53 - 12/06/16 05:35 Intake Total 1981 ml 1764 ml 8839 ml Output Total 340 ml 220 ml 1205 ml Balance 1641 ml 1544 ml 7634 ml Intake IV Total 1981 ml 1764 ml 8839 ml Output Urine Total 110 ml 220 ml 775 ml Gastric Drainage Total 230 ml 0 ml 430 ml Exam Gen: Patient intubated and sedated, no response to external stimuli Neck: Right IJ in place, no JVD HEENT: pupils minimally reactive to light, does not track motion, no scleral icterus CV: RRR, no murmurs rubs or gallops Resp: Lungs CTA BL as best as can be determined over ventilator breath sounds on anterior auscultation Abd: No rebound masses or guarding Extr: Diffuse moderate edema in all 4 extremities Neuro: Cannot be adequately assessed at this time. No response to external stimuli. IVs and Medications Medications Reviewed: Medications were reviewed in detail Lab and Diagnostics Item Value Date Time Red Blood Count 4.67 mil/mm3 12/06/16 0500 Mean Corpuscular Volume 82.2 fL 12/06/16 050 Mean Corpuscular Hemoglobin 29.3 pg 12/06/16 050 Mean Corpuscular Hemoglobin Concent 35.7 % 12/06/16 050 Red Cell Distribution Width 13.4 % 12/06/16 0500 Neutrophils (%) (Auto) 68 % 12/06/16 0500 Lymphocytes (%) (Auto) 5 % L 12/06/16 0500 Monocytes (%) (Auto) 1 % L 12/06/16 0500 Eosinophils (%) (Auto) 0 % 12/06/16 0500 Basophils (%) (Auto) 0 % 12/06/16 050 Band Neutrophils % 27 % H 12/06/16 0500 Estimat Glomerular Filtration Rate 10 mL/min 12/06/16 1410 Lactic Acid Level 7.6 mmol/L *H 12/06/16 1410 Calcium Level 6.7 mg/dL *L 12/06/16 1410 Total Bilirubin 0.7 mg/dL 12/06/16 1410 Aspartate Amino Transf (AST/SGOT) 99 U/L H 12/06/16 1410 Alanine Aminotransferase (ALT/SGPT) 157 U/L H 12/06/16 1410 Alkaline Phosphatase 67 U/L 12/06/16 1410 Troponin T 0.242 ug/L *H 12/06/16 1410 Total Protein 4.3 g/dL L 12/06/16 1410 Albumin 2.6 g/dL L 12/06/16 1410 Result Diagram: 12/06/16 0500 12/06/16 1410 Microbiology MRSA swab negative Sputum Sample negative Urine culture negative Blood cultures pending X-Rays, CTs and MRIs PROCEDURE: CT BRAIN WITHOUT CONTRAST IMPRESSION: 1. No acute intracranial findings. 2. Fluid within the right maxillary sinus and sphenoid sinuses. This is likely related to intubation; however acute sinusitis can also have this appearance. Dictated by: Alicia Napoles M.D. on 12/04/2016 at 16:35 PROCEDURE: X-RAY CHEST ONE VIEW, PORTABLE IMPRESSION: Generalized pulmonary edema, moderately severe. Endotracheal and nasogastric tubes in normal position. Dictated by: Pavel Castle M.D. on 12/04/2016 at 15:33 PROCEDURE: X-RAY CHEST ONE VIEW, PORTABLE 1. Interval placement of central venous catheter. No pneumothorax. 2. Other support devices in place. 3. Moderate pulmonary edema Dictated by: Ayaan Johnson M.D. on 12/04/2016 at 16:25 PROCEDURE: X-RAY CHEST ONE VIEW, PORTABLE IMPRESSION: Endotracheal, nasogastric tube and central line as noted above, no pneumothorax. Pulmonary edema pattern greater on the right than the left but mildly improved from one day ago. Dictated by: Pavel Castle M.D. on 12/05/2016 at 8:01 12-lead ECG Sinus tachycardia, left axis deviation, prolonged QT Cardiac Echo Impressions LVEF 35-40% RV dilated and hypokinetic. Technically difficult study Assessment & Plan The patient is a 31-year-old with a history of opiate addiction who was brought to the ED by EMS unresponsive. Acute hypoxic and hypocapnic respiratory failure. Present on admission. - Occurred following intentional inhalation of prescription opiates. Possibly secondary to acute noncardiogenic pulmonary edema associated with opiate inhalation. - Continue mechanical ventilation with PC-UMM, consult pulm-critical care, recs appreciated. . - Propofol and fentanyl gtt - Pulmonary consulted, appreciate their recommendations. - Patient manifesting waxing waning severe fine tremor most likely due to shivering, though seizure activity cannot be excluded High frequency low amplitude tremor with occasional jerking neck, POA, acute. Active -This is most likely due to shivering as a result of rewarming -Tylenol 1 g transiently repressed this activity -Benzos also with transient effect -Concern this could represent seizure activity. Both Dr. Mccormick from critical care, and Dr. Ruiz from neurology believe this to be the case -Kemercyra started for seizure prophylaxis, Benzos as needed -EEG tomorrow Acute cardiac arrest. Present on admission. - Likely secondary to hypoxic respiratory failure. Pt became pulseless after becoming hypoxic. Likely not cardiogenic. - Cooling protocol initiated at 19:00 (12/04) began rewarming at 19:00 (12/05) - Mechanical ventilation per pulmonary critical care team Possible sepsis, acute. Present on admission. - Blood pending. - Urine, sputum cultures negative - Respiratory viral PCR pending - Continue IV ceftriaxone. - Trend Lactic Acid Q6 until normalized. - Norepinephrine gtt, wean as tolerated - ID consulted, appreciate their recommendation. uncertain if or where this patient is infected. Possible upper GI bleed, acute. Present on admission. - Pt noted to have large amounts of blood in oropharynx and trachea. Unknown source - possible hematemesis from GI bleed vs hemoptysis, but most likely explanation includes epistaxis from snorting opiates. - No further sign of bleeding as of 12/04. Monitoring. - Monitor H&H - Protonix 40 mg IV BID Acute kidney injury. Present on admission. - Secondary to hypotension vs sepsis. - Monitoring ABD pressure. - Avoid nephrotoxic meds, renal dosing of meds. - Nephrology consulted, appreciate their recommendations. Likely dialysis tomorrow Anion gap metabolic acidosis, acute. Present on admission. - Secondary to lactic acidosis. - Continue to monitor lactic acid Q6 - Sodium acetate gtt, bicarb unavailable Elevated liver enzymes, acute. Present on admission. - LFTs elevated on admission. Secondary to hypoperfusion vs sepsis. - Continue to monitor LFTs. Elevated troponin, acute. Present on admission. - Troponin 0.724 on admission. Likely secondary to demand ischemia and myocardial injury during CPR/defib. Pt negative for amphetamines. Unlikely to have CAD. - Trend troponin Q6 until normalized. Trending down. History of opioid abuse. - Serum tox screen negative despite history of snorting opiates today. - Social work consult Maintenance: -Tube feed trickle at 10ml/hr for ulcer prevention. Nutrition consulted. - Insulin gtt for blood glucose control. Patient is FULL CODE Disposition: Patient is mechanically ventilated and sedated, blood cultures are still pending and empiric antibiotics are currently being administered. As patient is requiring continued critical care and support, length of stay is undetermined at this time. Pain Evaluation: Adequate Pain Control GI Prophylaxis: Proton Pump Inhibitor VTE Prophylaxis: Sub-Q Heparin (Unfractionated) Resuscitation Status: CPR: Attempt Resuscitation Attending Statement The patient was seen and examined together with Dr. Spear on 12/06/2016 and I agree with the history, exam and plan as outlined in the note above. . Alberto Spear DO Dec 06, 2016 17:13 Jose A Troncoso MD Dec 07, 2016 07:37
[2016-12-07] VITALS (13 sets, daily range): BP systolic 106–145; BP diastolic 48–89; PULSE 93–118; RESP 20–23; O2SAT 94–99
[2016-12-07] MEDS: Albuterol HFA 200 Puff Inhaler (Vent Pts Only) INHALATION SCH ×6 (00:02→20:10)
[2016-12-07] MEDS: Chlorhexidine 0.12% 15 mL Oral Solution MT SCH ×6 (02:55→20:07)
[2016-12-07] MEDS: Heparin 5,000 Unit/mL Inj SUBQ SCH ×3 (02:55→16:38)
[2016-12-07] MEDS: Propofol Inj 1,000,000 MCG in IV Premix 1 EACH IV SCH ×3 (02:56→08:29)
[2016-12-07 05:33] LABS: Mean Corpuscular Hemoglobin 29.8 pg (27.0-35.0); Mean Corpuscular Volume 83 fL (81-100); Platelet Count 87 bil/L (150-400)
[2016-12-07 05:34] LABS: BASOPHILS % (AUTO) 0 % (0-3); EOSINOPHILS % (AUTO) 1 % (0-5); MONOCYTES % (AUTO) 1 % (4-12); NEUTROPHILS % (AUTO) 79 % (40-74)
[2016-12-07 06:15] LABS: Magnesium 1.9 mg/dL (1.6-2.6); Phosphorus 5.2 mg/dL (2.5-4.9)
--- NOTE | 2016-12-07 06:55 | NUR ---
Neuro Pt remains intubated. He does not respond to any stimuli. He does show occasional intermittent shivering / seizure like-activity mostly during care such as turning, bathing, suctioning, etc. BIS 35-28. Pt anticipating EEG this am. VSS. Levophed titrated down to 0.08 mcg. T-max 37.2. Please refer to CCU flowsheet for further details. Family at the bedside throughout the NOC providing support and comfort.
[2016-12-07] MEDS: Insulin LISPRO 300 Unit/3 mL Inj SUBQ SCH ×4 (08:00→20:38)
[2016-12-07] MEDS: Pantoprazole 4 mg/mL 10 mL Inj IVPUSH SCH ×2 (08:29→16:38)
[2016-12-07] MEDS: fentaNYL 2,500 mCg/250 mL 2,500 MCG in IV Premix 1 EACH IV PRN (08:30)
[2016-12-07] MEDS: LacriLube S.O.P. 3.5 Gm Ophthalmic Ointment BOTH_EYES SCH ×2 (08:30→20:06)
[2016-12-07] MEDS: Piperacillin-Tazo 3.375 Gm Inj 3.375 GM in Dextrose 5% Minibag Plus 50 ML IV SCH ×2 (08:32→21:32)
--- NOTE | 2016-12-07 08:56 | DRSVH ---
PROCEDURE: X-RAY CHEST ONE VIEW, PORTABLE ([id number]) INDICATIONS: respiratory failure TECHNIQUE: One view of the chest was acquired. COMPARISON: [facility], CR, XR CHEST 1VW (PORTABLE), 12/06/2016, 4:24. FINDINGS: Surgical changes and devices: ETT has been placed tip projected by 0.3 cm above the mariaelena. Nasogast mony tube tip traverses the GE junction. Transcutaneous pacer lead present projected over the left hi lum. Left IJ CVL present projected over the lower SVC. Lungs and pleura: Perihilar and bibasilar air space opacities are present. No pneumothorax. Mediastinum: Mediastinal contours appear normal. Heart size is normal. Bones and chest wall: No suspicious bony lesions. Overlying soft tissues appear unremarkable. IMPRESSION: 1. Lines and tubes as above. 2. Perihilar and basilar opacities present consistent with developing pulmonary edema and/or diffuse bilateral pneumonia and/or atelectasis versus aspiration. Correlate clinically. Dictated by: Enoch Larson [facility] Interpreted: Pavel Castle MD on 12/07/2016 at 8:52 Transcribed by: MIRYAM on 12/07/2016 at 8:56 Approved by: Pavel Castle M.D. on 12/07/2016 at 14:24
[2016-12-07 09:12] LABS: Hepatitis A Antibody IgM Negative (Negative); Hepatitis B Core Antibody IgM Negative (Negative)
[2016-12-07] MEDS ORDERED: Ceftaroline 600 mg/250 mL D5W IV ONE ×2 (11:00)
--- NOTE | 2016-12-07 11:02 | PROG NOTE ---
[address] [address] PROGRESS NOTE PATIENT: MIN ATKINSON : 1985 MR#: [id number] ADMIT: 12/04/2016 JOB ID: [id number] DATE: 12/07/2016 REASON FOR FOLLOW UP: Ventilator-dependent respiratory failure and apparent anoxic brain injury following respiratory arrest on December 04. INTERVAL HISTORY: Recall this patient I saw in consult on December 05. Today, I obtain much more history during a long history gathering session with the patient's father as well as with Dr. Vanessa Camargo, who is a friend of the family as well as a friend of the patient who saw him in the days leading up to this event. The patient's father reports that for about 10 days prior to the events of last Wednesday, the patient had been feeling tired and complaining of perhaps a bit of shortness of breath without any reported fevers, chills or productive cough. The patient had just felt malaise, weakness and perhaps some mild gastrointestinal complaints. Dr. Camargo saw the patient on Wednesday, two days before the events of last Wednesday when he had the respiratory and cardiopulmonary arrest. Dr. Camargo reports that he spoke to the patient specifically on Wednesday evening, and the patient was free of fevers, chills, significant cough, or any other overt symptoms. The patient also reportedly on , the day before these events, felt well enough to go swimming at the [facility] which was his preferred physical activity which was beneficial for his chronic back pain. 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 We also know that the patient has been fighting with opiate and alcohol issues for a long period and apparently had been free of these substances for a period of days leading up to Wednesday's of events when he started off by snorting what was said to be oxycodone, leading to bleeding from the upper airway and his eventual respiratory, followed by cardiac arrest. During ICU rounds this morning, we had an extensive discussion regarding his left-shifted white count and extremely elevated procalcitonin levels, and what these may mean. PHYSICAL EXAMINATION: Reveals an afebrile gentleman. Note, of course, that he was cooled after his admission, but even upon arrival in the ED, he was 36 degrees before cooling and now he has been re-warmed, temperature 37 degrees. His blood pressure 145/89, pulse 100, respiratory rate is ventilator dependent. He is saturating well now on 35% on the ventilator. He is not receiving any vasopressor agents. The patient is not responsive but at times he has a jerking myoclonic type movements which have been ascribed to either myoclonic jerks from brain injury or perhaps shivering. His head is without evident trauma. His pupils are equal. He does not have conjunctivitis. Oral endotracheal tube, oral gastric tube in good position. Neck without notable abnormalities. His lungs are notable for the presence of rales at both bases, especially on the right. Perhaps cardiac tones. Regular rate and rhythm. The abdomen is without focal mass, tenderness or ascites. Randall catheter is present. No skin rash is noted. No synovitis is noted. LABORATORIES: Include white blood count which was normal when he hit the ED, 9700, with normal diff on the afternoon of December 04, though within hours he had white count which had jumped to 13,000, and it has stayed right there. Today's total white count is 13,000 even. He has 87,000 platelets, still 12% bands. He had as high as 48% bands around midnight after the events of Wednesday. His creatinine is currently 7.78 which is actually continuing to trend up fairly sharply. His liver function tests, bilirubin 13, AST 69, ALT 121, alk phos 78, albumin 2.3. Urinalysis had greater than 50 red cells in the ED, 11-50 white cells. RPR is pending. Hep C and HIV negative. Micro studies include negative blood cultures x3 sets from admission. His sputum is growing primarily normal violette but two colonies of Staph aureus are seen and I have asked the lab to fully evaluate those. A MRSA screen of the nares is negative. IMAGING PROCEDURE: A chest x-ray from today was evaluated and carefully compared to prior films, which I did myself and in conjunction with the ICU team. It shows what appears to be developing pulmonary edema pattern consistent with either bilateral pneumonia, atelectasis, aspiration or simply CHF. Brain CT from the was also reviewed. As noted, it shows some fluid in the sinuses which probably is blood given what happened, but also no acute intracranial findings. IMPRESSION: One hour was spent discussing this case with the family, Dr. Camargo and the entire intensive care unit team. The patient has a very elevated procalcitonin on two measurements following his prolonged CPR, as well as a left-shifted white count. What is of critical importance, I think, is that the patient was seen by a physician just 36 hours or so before the events of December 04, and there was no hint of ongoing infection. There was, however, 10 days or so of malaise, and I wonder if this could be related to drug use and/or drug withdrawal, as the patient was struggling with opiates and alcohol issues. There is little to suggest infection prior to the arrest on December 04, except for this history of malaise, perhaps some vague gastrointestinal symptoms and perhaps some mild shortness of breath, though the history indicates that on the day prior to these events the patient was actually able to go swimming at the [employer]. Overall, I do not think this is a primary infectious disorder, though obviously the patient is at tremendous risk for aspiration pneumonia with almost an hour of difficult intubation as well as ongoing code. The very elevated procalcitonin may very well be a false positive related to his renal failure as well as prolonged CPR and hypoperfusion, all of which are known to falsely elevate procalcitonin. The high white count and left shift started after his arrival in the ED, and the initiation of CPR, and I think that also is not indicative of infection, although he remains at high risk. RECOMMENDATIONS: 1. Will completely work up the sputum Staph aureus. 2. A repeat sputum will be ordered today. 3. Will continue with the Zosyn we have started, because I think it provides optimal outpatient aspiration type coverage, though we could, of course, use Zosyn as well. 4. We are going to add ceftaroline for coverage of what could be conceivably a MRSA in the airway until we have better definition on what that Staph aureus in the sputum was. Will start with a renally adjusted dose. 5. Though highly unlikely, will check Hantavirus serology as well as cryptococcal antigen, but I again I do not think this is primarily an infectious process. 6. This case was discussed in great detail with the intensive care unit team as well as nursing staff.
--- NOTE | 2016-12-07 11:25 | NUR ---
NUTRITION FOLLOW UP: ASSESS: 31 YO male admitted for cardiac arrest, LEANDRO, possible GI bleed, requiring intubation. Pt with opiate addiction per notes. Hypothermia protocol was initiated on 12/04. Pt remains NPO X 3 days. Plan for EEG and possible HD catheter placement if dialysis to be initiated. PMHx: Lumbago, substance abuse. LABS: Reviewed. K+ 3.4, BUN 65, Cr 7.78, Ca 6.8, Phos 5.2, AST 69, ALT 121, Alb 2.3, TG 671 MEDS: Reviewed. Propofol at 31.4 ml/hr providing 829 kcal/day, Nimbex, fentanyl, pressor. GI: No BM reported at this time. CURRENT WT: 110.6 kg. BMI 36.0 kg/m2, Admit wt 100 kg. IBW: 72.73 kg. DIET: NPO ESTIMATED NEEDS: VENT/BMI/ARF Calories: 9330-4236 kcal/day (20-22 kcals/kg BW) Protein: 87-109 g/day (1.2-1.5 g/kg IBW) Fluids: 7541-4391 ML fluids (22-25 ml/kg IBW) NUTRITION DIAGNOSIS: 1.) Inadequate oral intake related to decreased ability to consume sufficient energy as evidenced by current vent and NPO status.---PERSISTS. NUTRITION INTERVENTION: 1.) Recommend initiating enteral nutrition in the next 24 hr. Recommend Nepro starting at 10 ml/hr, once tolerance established, advance 10 ml q 6 hr to goal rate of 35 ml/hr. At goal TF will provide 1386 kcal (TF + Propofol = 2215 kcal), 62 g protein; meeting 100% calorie, 71% protein needs. Consider addition of Prosource liquid protein once pt at goal. Eventual goal (if pt off of propofol) would be 55 ml/hr, to provide 2178 kcal, 98 g protein; meeting 100% calorie/protein needs. 2.) Adjust goal rate based on daily propofol rate. 3.) Will adjust estimated needs if pt starts dialysis. MONITOR/EVALUATE: NPO/Vent status, POC, nutrition support, labs, GI/nutrition status. Follow per high nutrition risk guidelines.
--- NOTE | 2016-12-07 11:34 | PCM.PNMED ---
Subjective Date of Service Dec 07, 2016 Subjective Nursing reports patient experienced shaking/shivering during the night. Sxs were limited to shoulders and trunk and did not extend into the distal UE or LE. Patient seen and examined sedated and mechanically ventilated. Unable to obtain information from patient secondary to patient's condition. Complete ROS unable to be obtained secondary to patient's condition. Exam Vital Signs Vital Sign - Last Date Time Temp Pulse Resp B/P Pulse Ox O2 Delivery O2 Flow Rate FiO2 12/07/16 08:09 105 145/89 94 35 12/07/16 04:30 37.0 20 Mechanical Ventilator Intake and Output 12/06/16 12/06/16 12/07/16 Cumulative From/Thru 15:00 23:00 07:00 12/04/16 15:53 - 12/07/16 05:12 Intake Total 1413 ml 1786 ml 23024 ml Output Total 200 ml 1150 ml 2555 ml Balance 1213 ml 636 ml 9483 ml Intake IV Total 1413 ml 1786 ml 64334 ml Output Urine Total 200 ml 1150 ml 2125 ml Gastric Drainage Total 0 ml 430 ml # Bowel Movements 0 0 Exam Constitutional: Sedated and mechanically ventilated. In no acute distress. Head: normocephalic and atraumatic Eyes: No scleral icterus. [place] conjunctiva Heart: tachycardic with regular rhythm. 1+ nonpitting peripheral edema in UE and LE Lungs: Patient is mechanically ventilated course breath sounds secondary to ventilator. No apparent wheeze. slight bibasilar rales. ABD: Soft. Bowel sounds present. Musculoskeletal: Good muscle tone. Patient sedated and paralyzed. Skin: warm, dry, no rashes Psych: unable to assess secondary to patient's condition. IVs and Medications IV Fluids 3L NS in the last 24 hours in combo with IV piggyback and Dextrose. Medications Reviewed: Medications were reviewed in detail Medications High Risk IV Medications: Ceftaroline Zosyn Fentanyl Propofol Norepinephrine Lab and Diagnostics Item Value Date Time Red Blood Count 4.03 mil/mm3 L 12/07/16 0500 Mean Corpuscular Volume 83 fL 12/07/16 0500 Mean Corpuscular Hemoglobin 29.8 pg 12/07/16 0500 Mean Corpuscular Hemoglobin Concent 35.8 % 12/07/16 0500 Red Cell Distribution Width 13.5 % 12/07/16 0500 Neutrophils (%) (Auto) 79 % H 12/07/16 0500 Lymphocytes (%) (Auto) 7 % L 12/07/16 0500 Monocytes (%) (Auto) 1 % L 12/07/16 0500 Eosinophils (%) (Auto) 1 % 12/07/16 0500 Basophils (%) (Auto) 0 % 12/07/16 0500 Band Neutrophils % 12 % H 12/07/16 0500 Estimat Glomerular Filtration Rate 9 mL/min 12/07/16 0500 Calcium Level 6.8 mg/dL *L 12/07/16 0500 Phosphorus Level 5.2 mg/dL H 12/07/16 0500 Magnesium Level 1.9 mg/dL 12/07/16 0500 Total Bilirubin 1.3 mg/dL H 12/07/16 0500 Aspartate Amino Transf (AST/SGOT) 69 U/L H 12/07/16 0500 Alanine Aminotransferase (ALT/SGPT) 121 U/L H 12/07/16 0500 Alkaline Phosphatase 78 U/L 12/07/16 0500 Troponin T 0.160 ug/L *H 12/07/16 0500 Total Protein 4.2 g/dL L 12/07/16 0500 Albumin 2.3 g/dL L 12/07/16 0500 Triglycerides Level 671 mg/dL H 12/07/16 0500 Procalcitonin 235.00 ng/mL H 12/07/16 0500 Result Diagram: 12/07/16 0500 12/07/16 0500 Microbiology MRSA swab negative Sputum Sample negative Urine culture negative Blood cultures pending X-Rays, CTs and MRIs PROCEDURE: CT BRAIN WITHOUT CONTRAST IMPRESSION: 1. No acute intracranial findings. 2. Fluid within the right maxillary sinus and sphenoid sinuses. This is likely related to intubation; however acute sinusitis can also have this appearance. Dictated by: Alicia Napoles M.D. on 12/04/2016 at 16:35 PROCEDURE: X-RAY CHEST ONE VIEW, PORTABLE IMPRESSION: Generalized pulmonary edema, moderately severe. Endotracheal and nasogastric tubes in normal position. Dictated by: Pavel Castle M.D. on 12/04/2016 at 15:33 PROCEDURE: X-RAY CHEST ONE VIEW, PORTABLE 1. Interval placement of central venous catheter. No pneumothorax. 2. Other support devices in place. 3. Moderate pulmonary edema Dictated by: Ayaan Johnson M.D. on 12/04/2016 at 16:25 PROCEDURE: X-RAY CHEST ONE VIEW, PORTABLE IMPRESSION: Endotracheal, nasogastric tube and central line as noted above, no pneumothorax. Pulmonary edema pattern greater on the right than the left but mildly improved from one day ago. Dictated by: Pavel Castle M.D. on 12/05/2016 at 8:01 PROCEDURE: X-RAY CHEST ONE VIEW, PORTABLE IMPRESSION: 1. Lines and tubes as above. 2. Perihilar and basilar opacities present consistent with developing pulmonary edema and/or diffuse bilateral pneumonia and/or atelectasis versus aspiration. Correlate clinically. Dictated by: Enoch Larson RRA Interpreted: Pavel Castle MD on 12/07/2016 at 8: 52 12-lead ECG Sinus tachycardia, left axis deviation, prolonged QT Cardiac Echo Impressions LVEF 35-40% RV dilated and hypokinetic. Technically difficult study Assessment & Plan The patient is a 31-year-old with a history of opiate addiction who was brought to the ED by EMS unresponsive. Acute hypoxic and hypocapnic respiratory failure. Present on admission. - Occurred following intentional inhalation of prescription opiates. Possibly secondary to acute noncardiogenic pulmonary edema associated with opiate inhalation. - Continue mechanical ventilation with PC-UMM, pulm-critical care to manage. - Weaning off Propofol and fentanyl gtt - Pulmonary consulted, appreciate their recommendations. - Patient manifesting waxing waning severe fine tremor most likely due to shivering, though seizure activity cannot be excluded. EEG final report pending High frequency low amplitude tremor with occasional fasciculations in neck, POA , acute. Active -This is most likely due to shivering as a result of rewarming -Tylenol 1 g transiently repressed this activity -Concern this could represent seizure activity. Dr. Ruiz from neurology believe this to be the case -EEG performed 12/07. Official read pending. Acute cardiac arrest. Present on admission. - Likely secondary to hypoxic respiratory failure. Likely not cardiogenic. - Mechanical ventilation per pulmonary critical care team Possible sepsis, acute. Present on admission. Ongoing. - Blood culture shows no growth after 2 days. - Sputum Expectorated showed S. aureus with normal violette. - Respiratory viral PCR pending - IV Zosyn - Hold Norepinephrine, replace if blood pressure becomes low (MAP <65) - ID consulted (Dr. Barahona), uncertain if or where this patient is infected culture from 12/04/16 positive for normal violette staph aureus only. Possible upper GI bleed, acute. Present on admission. - Pt noted to have large amounts of blood in oropharynx and trachea. Unknown source - possible hematemesis from GI bleed vs hemoptysis, but most likely explanation includes epistaxis from snorting opiates. - No further sign of bleeding as of 12/04. Monitoring. - Monitor H&H - Protonix 40 mg IV BID Acute kidney injury. Present on admission. - Secondary to hypotension vs sepsis. - Monitoring ABD pressure. - Avoid nephrotoxic meds, renal dosing of meds. - Nephrology consulted, appreciate their recommendations. Dialysis complete 12/07 @1800. Anion gap metabolic acidosis, acute. Present on admission. - Secondary to lactic acidosis. - Lactic acid normalized - Sodium acetate gtt, bicarb unavailable Elevated liver enzymes, acute. Present on admission. - LFTs elevated on admission. Secondary to hypoperfusion vs sepsis. There are some concerns for alcoholic hepatitis. - Patient placed on Thiamine drip - Continue to monitor LFTs. Elevated troponin, acute. Present on admission. - Troponin 0.724 on admission. Likely secondary to demand ischemia and myocardial injury during CPR/defib. Pt negative for amphetamines. Unlikely to have CAD. - Trend troponin Q6 until normalized. Trending down. History of opioid abuse. - Serum tox screen negative despite history of snorting opiates today. - Social work consult Maintenance: - Insulin gtt for blood glucose control. Patient is FULL CODE Disposition: Patient is mechanically ventilated and sedated, blood cultures are still pending and empiric antibiotics are currently being administered. As patient is requiring continued critical care and support, length of stay is undetermined at this time. GI Prophylaxis: Proton Pump Inhibitor VTE Prophylaxis: Sub-Q Heparin (Unfractionated) Resuscitation Status: CPR: Attempt Resuscitation Attending Statement The patient was seen and examined together with Dr. Beyer on 12/07/16 and I have added additional information to the note above. Dom Beyer DO Dec 07, 2016 10:01 Kari Sullivan DO Dec 10, 2016 17:29 patient is requiring continued critical care and support, length of stay is undetermined at this time. GI Prophylaxis: Proton Pump Inhibitor VTE Prophylaxis: Sub-Q Heparin (Unfractionated) Resuscitation Status: CPR: Attempt Resuscitation Dom Beeyr DO Dec 07, 2016 10:01 Dom Beyer DO Dec 07, 2016 10:01
--- NOTE | 2016-12-07 12:24 | ABG ---
DateTimeAnalyzed 12:15:38 -_ pH ____7.394 - 7.350 7.450 pCO2 ___33.3__ -mmHg 35.0 45.0 pO2 ___68.9__ -mmHg 69.0 116 HCO3- ___20.3__ -mmol/L 22.0 26.0 ABE ___-4.1__ -mmol/L tHb ___11.7__ -g/dL O2Hb ___93.2__ -% COHb ____2.2__ -% 1.5 MetHb ____0.5__ -% sO2 ___95.7__ -% FIO2 ___35.0__ -% PEEP ____6.0__ -cmH2O Set_RR 20 -b/min Vt __500.0__ -L Drawn By as - Date/Time Notified____ 12:23:00 -_ Spontaneous_RR 26 -b/min Oxygen Device 1 VENTILATOR - Notified By ams - Notified Whom Chely Vargus, RN -____ K+ ____3.6__ -mmol/L tO2 ___15.4__ -Vol% Harsh test _Positive -
--- NOTE | 2016-12-07 14:08 | PROG NOTE ---
[address] [address] PROGRESS NOTE PATIENT: MIN ATKINSON : 1985 MR#: [id number] ADMIT: 12/04/2016 JOB ID: [id number] DATE: 12/07/2016 PROBLEM: 1. Respiratory arrest. 2. Hypoxic/possible anoxic encephalopathy. 3. Opiate abuse. SUBJECTIVE: None. OBJECTIVE: Temperature 37.1, pulse 104, respiratory rate 20-23 with ventilator set at 20, blood pressure 138/80, O2 sat on FiO2 35%, PEEP of 6 is 94%. General appearance: Sedated, on ventilator. Myoclonic-type activity of upper extremities intermittently. Chest shows crackles at both bases, more so on the right. Heart: Regular rhythm. Heart tones normal. Abdomen is soft. Quiet. Extremities: No pretibial edema. Some apparent edema of the upper extremities. LABORATORY DATA: Shows a white count of 13,000 with 79 polymorphonuclears, 12 bands, 7 lymphs, 1 monocyte. Hemoglobin relatively stable at 12. Platelet count 87,000, slightly increased over a katharine of 76,000. Sodium 144, potassium 3.4, chloride 103, CO2 is 18, BUN 65, creatinine 7.78 and rising. Lactic acid is 2. Calcium 6.8 with an albumin of 2.3. Phosphorus mildly elevated at 5.2. Magnesium normal 1.9. Total bilirubin 1.3. AST mildly elevated, 69. ALT moderately elevated at 121, upper limits of normal being 44 units/L. Chest x-ray shows development of bibasilar infiltrates, maybe a bit more in the right mid lung field. Endotracheal tube in good position. EEG shows some diffuse slowing with some intermittent normal activity. Discussed with Nephrology. The patient is scheduled for dialysis later today. Vent settings show a tidal volume of 500, PEEP of 6, FiO2 of 0.35, rate of 20, with inspiratory time of 1.2 seconds, rise time of 0.25, resulting in an I:E ratio of 1-1.1. The patient currently on norepinephrine to maintain blood pressure. Also on propofol and fentanyl. ASSESSMENT: 1. Hypoxemic encephalopathy. EEG is somewhat encouraging. Propofol has been stopped. With changing the ventilator settings, he is now off norepinephrine. Will continue with the current settings. Hypothermia protocol has been completed and we will allow the patient to declare himself off sedatives as best we can. Will continue fentanyl for the moment, utilizing sedatives if needed. Otherwise, it will be watchful waiting stance. 2. Altered mental status. The patient has had some difficulties with opiates and alcohol. Spoke with his attending physician. Relapsed this past month and having difficulties. His physician saw him approximately 48 hours before the Wednesday morning event. He was apparently doing quite well at that time with no evidence of infection whatsoever. His recent difficulties have been attributed to the recrudescence of his drug abuse behavior. 3. Renal failure. Presumably due to the hypotension, possibly the periods of apparent cardiac arrest and possibly an element of rhabdomyolysis. Plan is for dialysis later today. PLAN: 1. Vent changes to PRVC ventilation. 2. Continue current regimen. 3. Proceed with dialysis. 4. Continue to withhold sedatives as needed. Will continue with fentanyl because of the history of opiate abuse. I had a long detailed discussion with the patient's family. Brought them up to date with the findings. Reviewed the case with them and attempted to answer their questions. Time spent so far in critical care, 75 minutes.
--- NOTE | 2016-12-07 14:18 | PROG NOTE ---
[address] [address] PROGRESS NOTE PATIENT: MIN ATKINSON : 1985 MR#: [id number] ADMIT: 12/04/2016 JOB ID: [id number] DATE: 12/07/2016 REQUESTING PHYSICIAN: Prudencio Gordillo MD, for post hypoxic injury. HISTORY OF PRESENT ILLNESS: The patient is a 39-year-old gentleman with drug overdose and resultant bilateral pneumothorax with prolonged time to intubation resulting in hypoxia. Overall, the patient has no clinical improvement, however, propofol and Versed were stopped just this morning. He had an EEG earlier today that showed slow activity without seizures. Respiratory has not yet evaluated him. He is being followed by both Infectious Disease and by Nephrology due to acute kidney injury and possible infection. His family is at the bedside with father present. No additional shivering has been observed with propofol discontinued. Overnight, he was noted to be exquisitely sensitive to Tylenol. REVIEW OF SYSTEMS: Cannot be obtained due to patient's coma. MEDICATIONS: Chlorhexidine, albuterol, piperacillin, tazobactam, heparin subcu, fentanyl. SUBJECTIVE: Heart rates 114, pulse oximetry 97% on mechanical ventilator. Blood pressure 131/72, temperature is 37.1, afebrile. Head: Normocephalic, atraumatic. No evidence of carotid bruits. Lungs: Decreased breath sounds. Minimal edema in the extremities. NEUROLOGIC EXAMINATION: The patient is comatose and unresponsive to voice or pain. This is a limited examination due to coma. This examination was completed prior to discontinuation of propofol and is therefore limited. Cranial nerves: Pupils are minimally reactive. No facial asymmetry. Doll's eyes present. Motor: No spontaneous movement. No shivering. Reflexes: Deep tendon reflexes trace throughout. Plantar reflex flexor. Sensation: No response to deep pain. Gait and coordination cannot be assessed due to coma. LABORATORY STUDIES: Elevated white count at 13. Creatinine 7.78. Please see chart for further detail on laboratories. ASSESSMENT AND RECOMMENDATION: The patient is a 31-year-old gentleman who sustained a prolonged period of hypoxia approximating 45 minutes. He remains intubated and on a respirator with minimal response. Propofol and Versed were stopped just prior to the EEG which showed slow activity but no evidence of ongoing seizure activity to cause comatose state. He has other medical conditions besides his possible hypoxia which include recovering renal function and possible infection. He had bilateral pneumothorax by x-ray. I advised the family that there is brain function present as noted on the EEG. Since he is now day three, he should begin to exhibit some voluntary movement to indicate that there has been only minimal cortical damage. Prolonged lack of voluntary movement will be worrisome for significant brain or cortical injury. Repeat head CT and EEG are recommended, if the patient fails to improve. My assessment and recommendations were discussed with the patient's family and Dr. Gordillo. Over half of this 30 minute evaluation was spent in counseling the family. I will plan to reevaluate the patient as needed. Please call if further discussion is needed. RAAD
--- NOTE | 2016-12-07 14:23 | PCM.PNNEPH ---
Subjective Date of Service Dec 07, 2016 Subjective UOP increased over the past 24 hrs. However, serum creatinine continues to rise. Family is at the bedside. Agreed to proceed with HD cath placement and TILE SPRAYER. Exam Vital Signs Vital Sign - Last Date Time Temp Pulse Resp B/P Pulse Ox O2 Delivery O2 Flow Rate FiO2 12/07/16 12:30 37.2 118 21 110/57 98 Mechanical Ventilator 30 Intake and Output 12/06/16 12/06/16 12/07/16 Cumulative From/Thru 15:00 23:00 07:00 12/04/16 15:53 - 12/07/16 05:12 Intake Total 1413 ml 1786 ml 13176 ml Output Total 200 ml 1150 ml 2555 ml Balance 1213 ml 636 ml 9483 ml Intake IV Total 1413 ml 1786 ml 88613 ml Output Urine Total 200 ml 1150 ml 2125 ml Gastric Drainage Total 0 ml 430 ml # Bowel Movements 0 0 Exam GENERAL: Intubated and sedated. HEENT: Head is normocephalic and atraumatic. ET-Tube, OG tube in place. NECK: Supple, no elevation of JVD, No carotid bruits. Left IJ triple lumen in place. LUNGS: On full becki support, equal BS B/L. No wheezing or rhonchi. HEART: Normal S1/S2, Regular rate and rhythm, no murmurs, rubs or gallops. 2+ pules throughout. ABDOMEN: Soft, nontender, and nondistended. Positive bowel sounds. No hepatosplenomegaly was noted. EXTREMITIES: trace edema. : Randall cath in place with yellowish urine. Lab and Diagnostics Result Diagram: 12/07/16 0500 12/07/16 0500 Microbiology MRSA swab negative Sputum Sample negative Urine culture negative Blood cultures pending X-Rays, CTs and MRIs PROCEDURE: CT BRAIN WITHOUT CONTRAST IMPRESSION: 1. No acute intracranial findings. 2. Fluid within the right maxillary sinus and sphenoid sinuses. This is likely related to intubation; however acute sinusitis can also have this appearance. Dictated by: Alicia Napoles M.D. on 12/04/2016 at 16:35 PROCEDURE: X-RAY CHEST ONE VIEW, PORTABLE IMPRESSION: Generalized pulmonary edema, moderately severe. Endotracheal and nasogastric tubes in normal position. Dictated by: Pavel Castle M.D. on 12/04/2016 at 15:33 PROCEDURE: X-RAY CHEST ONE VIEW, PORTABLE 1. Interval placement of central venous catheter. No pneumothorax. 2. Other support devices in place. 3. Moderate pulmonary edema Dictated by: Ayaan Johnson M.D. on 12/04/2016 at 16:25 PROCEDURE: X-RAY CHEST ONE VIEW, PORTABLE IMPRESSION: Endotracheal, nasogastric tube and central line as noted above, no pneumothorax. Pulmonary edema pattern greater on the right than the left but mildly improved from one day ago. Dictated by: Pavel Castle M.D. on 12/05/2016 at 8:01 12-lead ECG Sinus tachycardia, left axis deviation, prolonged QT Cardiac Echo Impressions LVEF 35-40% RV dilated and hypokinetic. Technically difficult study Plan Impression 1. Nonoliguric ischemic ATN. 2. S/p Vtach/Vfib arrest with prolonged CPR. 3. Acute respiratory failure. 4. Anion gap metabolic acidosis secondary to lactic acid and uremia. 5. SIRS, suspected sepsis, aspiration PNA. 6. Suspected anoxic brain injury, EEG performed in am, result pending. 7. Opiate dependence. Plan: Will arrange for HD cath placement. Start HD today 3.5 hr, 4K bath, UF as tolerated. Next HD in am. Keep MAP > 65 mmHg. Avoid nephrotoxins, renally dose medications. Gurpreet Silverman MD Dec 07, 2016 14:23
[2016-12-07] MEDS: Dextrose 5% 0.9% NaCl 1,000 ML IV SCH (14:58)
[2016-12-07] MEDS: Thiamine Inj 200 MG in Dextrose 5% 50 ML IV SCH (14:58)
[2016-12-07 15:40] LABS: TROPONIN T 0.16 ug/L (0.0-0.011)
--- NOTE | 2016-12-07 16:04 | NUR ---
P Alteration in neuro status I: here this am and now wants versed off and propofol off for EEG and to allow pt to wake up. Both dc'd. Fentanyl 50mcqs/hr on for possible opiod withdrawal. Pt still has shivers although temp is normal and hypothermia normal temp for 48 hours dc'd. OGT to LCS with green output. Randall patent with 380 cc output at this time. Temporary hemodialysis catheter placed at bedside. hemodialysis started and so far pt tolerating it well. D5NS at 50cc/hr blood sugars stable 114-122. [facility] TLC patent. CVP this am 20. Cheetah dc'd. T max 37.[address] Barahona seen pt and antibiotics added. Pt does not open his eyes or have any movement other than shivering. Family updated on pt's condition and plan of care. E: Stable S: Not moving. No restraints needed at this time. Family at bedside. Frequent rounding.
[2016-12-07 17:23] LABS: APPEARANCE,URINE CLEAR (CLEAR,HAZY); COLOR,URINE YELLOW (YELLOW); OCCULT BLOOD,URINE SMALL (NEGATIVE); UROBILINOGEN,URINE NORMAL (NORMAL)
--- NOTE | 2016-12-07 18:04 | PCM.PROC ---
Procedure Note Date of Service: Dec 07, 2016 Pre Procedure Diagnosis: Acute Kidney injury requiring dialysis Procedure: Femoral vein central venous access. Provider and Information Technology Officer: Dr. Herrera Spear Indication for Procedure: Acute kidney injury Procedural Analgesia: Patient intubated and sedated with propofol and Fentanyl Procedure Details: The patient's femoral vein was demonstrated by Ultrasound as a thin walled compressible vessel in the inguinal region medial and inferior to a pulsatile vessel assumed to be the femoral artery. The area was then sterilized and draped in the standard fashion. Under ultrasound guidance the femoral vein was accessed with a needle until a flash of venous blood was observed in the syringe. A guide wire was advanced through the needle cannula, and the needle was subsequently removed. A small relief incision was made around the insertion site of the needle in the groin, and two successively larger dilators were advanced over the needle to facilitate placement of a temporary dialysis catheter. The catheter again demonstrated flash of venous flood, and was flushed with normal saline. The catheter was sutured in place, and IV therapy proceeded to dress the region in standard fashion. The patient tolerated the procedure well. copies to: Gurpreet Silverman MD, David E DO Dec 07, 2016 18:04
--- NOTE | 2016-12-07 18:15 | NUR ---
Dialysis note: S/P catheter placement 3 1/2 hours tx 3000 ml net UF Right femoral catheter, dsg dry and intact Pls see DTR for VS details Qb 250 Heparin given On vent @ 35% FiO2 with sat in the 90's Tolerated tx, cont'd on IV sedation Catheter flushed, heparin dwelled and secured Stable condition at end of tx Report given to Chely POSEY
[2016-12-07] MEDS: Ceftaroline Inj 400 MG in Dextrose 5% 250 ML IV SCH (20:06)
--- NOTE | 2016-12-07 20:13 | PROCED ---
[address] [address] EEG PATIENT: MIN ATKINSON : 1985 MR#: [id number] ADMIT: 12/04/2016 JOB ID: [id number] DATE OF SERVICE: 12/07/2016 REQUESTING PHYSICIAN: Dr. Jose A Troncoso. CLINICAL HISTORY: The patient is a 31-year-old gentleman with [id number] Overdose/cardiac arrest with prolonged time to intubation estimated to be 45 minutes before resuscitation. Hypoxic injury hypothesized. Patient is having tremulousness. Propofol was stopped before the recording began. DESCRIPTION: The patient is comatose and unresponsive on a ventilator. This is a low amplitude recording with 4 hertz activity noted. There are no focal lateralized or epileptiform abnormalities seen. Tremulousness was not reported by the blow mold technician, but there are no electrophysiologic seizures noted. Activation: Photic activation does not reveal any photic driving and no photoparoxysmal discharges. Tachycardic regular rhythm is noted. IMPRESSION: Abnormal electroencephalogram due to low amplitude and slow activity. No ongoing seizure activity or epileptiform abnormalities seen throughout the recording. Clinical correlation advised.
[2016-12-07] MEDS: Acetaminophen IV 1,000 MG in IV Premix 1 EACH IV PRN (20:46)
[2016-12-08] VITALS (12 sets, daily range): BP systolic 117–141; BP diastolic 62–91; PULSE 67–104; RESP 20; O2SAT 95–99
[2016-12-08] MEDS: Albuterol HFA 200 Puff Inhaler (Vent Pts Only) INHALATION SCH ×3 (00:36→22:06)
[2016-12-08] MEDS: Chlorhexidine 0.12% 15 mL Oral Solution MT SCH ×7 (02:05→23:51)
[2016-12-08] MEDS: Heparin 5,000 Unit/mL Inj SUBQ SCH ×3 (02:05→16:19)
[2016-12-08 02:27] LABS: BASOPHILS % (AUTO) 0.2 % (0-3); EOSINOPHILS % (AUTO) 0.9 % (0-5); MONOCYTES % (AUTO) 5.3 % (4-12); Mean Corpuscular Hemoglobin 29.3 pg (27.0-35.0); Mean Corpuscular Volume 83.2 fL (81-100); NEUTROPHILS % (AUTO) 85.9 % (40-74); Platelet Count 90 bil/L (150-400)
[2016-12-08] MEDS: Insulin LISPRO 300 Unit/3 mL Inj SUBQ SCH ×4 (02:38→20:09)
[2016-12-08 02:54] LABS: Magnesium 2.1 mg/dL (1.6-2.6)
[2016-12-08] MEDS: Acetaminophen IV 1,000 MG in IV Premix 1 EACH IV PRN (06:44)
[2016-12-08 06:47] LABS: BASOPHILS % (AUTO) 0.2 % (0-3); EOSINOPHILS % (AUTO) 1.4 % (0-5); MONOCYTES % (AUTO) 5.6 % (4-12); Mean Corpuscular Hemoglobin 29.2 pg (27.0-35.0); Mean Corpuscular Volume 83.7 fL (81-100); NEUTROPHILS % (AUTO) 83.5 % (40-74); Platelet Count 85 bil/L (150-400)
--- NOTE | 2016-12-08 07:39 | NUR ---
Neuro / Temp Pt remains unresponsive and continues to shiver / shake occasionally during care. Also he was hiccupping mostly after oral care or after inhaler admin by RT. T-max 38.5 ax. Medicated with APAP IV, bare hugger, and ice packs. Temp down to 37.2. Reminder of VSS. Family at the bedside.
[2016-12-08] MEDS: Pantoprazole 4 mg/mL 10 mL Inj IVPUSH SCH ×2 (08:06→16:13)
[2016-12-08] MEDS: Piperacillin-Tazo 3.375 Gm Inj 3.375 GM in Dextrose 5% Minibag Plus 50 ML IV SCH ×2 (08:10→20:11)
[2016-12-08] MEDS: fentaNYL 2,500 mCg/250 mL 2,500 MCG in IV Premix 1 EACH IV PRN (08:19)
[2016-12-08] MEDS: Norepineph 8,000 mCg/250 mL NS 8,000 MCG in IV Premix 1 EACH IV SCH (08:20)
[2016-12-08] MEDS: LacriLube S.O.P. 3.5 Gm Ophthalmic Ointment BOTH_EYES SCH ×2 (08:22→20:09)
[2016-12-08] MEDS: Dextrose 5% 0.9% NaCl 1,000 ML IV SCH ×2 (08:30→23:51)
[2016-12-08] MEDS: Ceftaroline Inj 400 MG in Dextrose 5% 250 ML IV SCH (08:31)
[2016-12-08] MEDS: Thiamine Inj 200 MG in Dextrose 5% 50 ML IV SCH (08:31)
[2016-12-08] MEDS ORDERED: Albuterol-Ipratropium 3 mL Inhalation Solution NEB PRN (09:35)
--- NOTE | 2016-12-08 09:45 | PCM.PNMED ---
Subjective Date of Service Dec 08, 2016 Subjective ICU Progress Note The patient is a 31-year-old with a history of opiate addiction who was brought to the ED by EMS unresponsive. Admitted for cardiac arrest secondary to acute hypoxic and hypercapnic respiratory failure. Patient was febrile overnight, with TMax 38.5, which normalized with APAP. He remains unresponsive, and continues to shiver. On fentanyl @ 50. Exam Vital Signs Vital Sign - Last Date Time Temp Pulse Resp B/P Pulse Ox O2 Delivery O2 Flow Rate FiO2 12/08/16 09:08 99 119/62 97 35 12/08/16 04:30 37.2 20 Mechanical Ventilator Intake and Output 12/07/16 12/07/16 12/08/16 Cumulative From/Thru 15:00 23:00 07:00 12/04/16 15:53 - 12/08/16 06:00 Intake Total 804 ml 1144 ml 04530 ml Output Total 3000 ml 520 ml 675 ml 6750 ml Balance -3000 ml 284 ml 469 ml 7236 ml Intake IV Total 804 ml 1144 ml 58600 ml Output Urine Total 470 ml 525 ml 3120 ml Gastric Drainage Total 50 ml 150 ml 630 ml Ultrafiltrate 3000 ml 3000 ml # Bowel Movements 1 1 Exam Constitutional: Sedated and intubated. Unresponsive. In no acute distress. HEENT: Normocephalic and atraumatic. No scleral icterus. Pupils fixed and pinpoint. Heart: Regular rate and rhythm. No murmurs, rubs, gallops. Lungs: Coarse breath sounds bilaterally. Abdomen: Soft. Bowel sounds present. No masses. Extremities: Bilateral upper and lower extremity edema present. R arm more edematous than left. Skin: Warm, dry, no rashes Neuro: Patient unresponsive. Vent Settings FiO2: 35 PEEP set: 6 PEEP measured: 6 Rate: 20 VT: 500 Peak: 23 Plat: 21 Lab and Diagnostics Result Diagram: 12/08/1661912/08/16 06 Microbiology MRSA swab negative Sputum Sample negative Urine culture negative Blood cultures pending X-Rays, CTs and MRIs PROCEDURE: CT BRAIN WITHOUT CONTRAST IMPRESSION: 1. No acute intracranial findings. 2. Fluid within the right maxillary sinus and sphenoid sinuses. This is likely related to intubation; however acute sinusitis can also have this appearance. Dictated by: Alicia Napoles M.D. on 12/04/2016 at 16:35 PROCEDURE: X-RAY CHEST ONE VIEW, PORTABLE IMPRESSION: Generalized pulmonary edema, moderately severe. Endotracheal and nasogastric tubes in normal position. Dictated by: Pavel Castle M.D. on 12/04/2016 at 15:33 PROCEDURE: X-RAY CHEST ONE VIEW, PORTABLE 1. Interval placement of central venous catheter. No pneumothorax. 2. Other support devices in place. 3. Moderate pulmonary edema Dictated by: Ayaan Johnson M.D. on 12/04/2016 at 16:25 PROCEDURE: X-RAY CHEST ONE VIEW, PORTABLE IMPRESSION: Endotracheal, nasogastric tube and central line as noted above, no pneumothorax. Pulmonary edema pattern greater on the right than the left but mildly improved from one day ago. Dictated by: Pavel Castle M.D. on 12/05/2016 at 8:01 PROCEDURE: X-RAY CHEST ONE VIEW, PORTABLE IMPRESSION: 1. Lines and tubes as above. 2. Perihilar and basilar opacities present consistent with developing pulmonary edema and/or diffuse bilateral pneumonia and/or atelectasis versus aspiration. Correlate clinically. Dictated by: Enoch Larson RRA Interpreted: Pavel Castle MD on 12/07/2016 at 8: 52 12-lead ECG Sinus tachycardia, left axis deviation, prolonged QT Cardiac Echo Impressions LVEF 35-40% RV dilated and hypokinetic. Technically difficult study Assessment & Plan The patient is a 31-year-old with a history of opiate addiction who was brought to the ED by EMS unresponsive. Admitted for cardiac arrest secondary to acute hypoxic and hypercapnic respiratory failure. Acute hypoxic and hypocapnic respiratory failure. Present on admission. - Occurred following intentional inhalation of prescription opiates. Possibly secondary to acute noncardiogenic pulmonary edema associated with opiate inhalation. Patient was switched from PC-UMM to PRVC yesterday, ventilating well. - Continue mechanical ventilation with PRVC. - Weaning off fentanyl gtt Acute cardiac arrest. Present on admission. Stable. - Secondary to hypoxic respiratory failure. Pt became pulseless after becoming hypoxic. Likely not cardiogenic. Pt has had a high frequency tremor during cooling and rewarming, which seems to have resolved since yesterday. Likely shivering; unlikely to be seizure activity given lack of seizure activity on the EEG. Pt weaning off all sedation and has been off pressors since yesterday. - Continue mechanical ventilation Hypoxic encephalopathy, acute. Present on admission. Ongoing. - Pt continues to be unresponsive, with fixed pinpoint pupils. Most sedation weaned off yesterday but remains on fentanyl. EEG showed low amplitude and slow activity with no ongoing seizure activity or epileptiform abnormalities, which was reassuring. Altered mental status may also be secondary to opiate and alcohol use. - Wean off fentanyl today. Fever, acute. - Pt had a fever overnight, which improved with APAP. He originally presented with leukocytosis and bandemia, which have now normalized. Procalcitonin was elevated but can be falsely elevated following cardiac arrest and CPR. Blood and urine cultures were negative. Sputum cultures showed 2 colonies of MSSA, uncertain if this is colonization or infection. Viral PCR negative. Per Dr. Abdulkadir Camargo (family friend), he was seen last Wednesday and had no major complaints except for weakness, and did not appear infectious at the time. It is still doubtful that there is active infection, but will cover with antibiotics in the meantime. - Treating with Zosyn and ceftaroline. Discontinuing ceftaroline today. - Repeat sputum culture - Dr Barahona of Infectious Disease is following. We appreciate his input. Acute kidney injury. Present on admission. - Likely secondary to ischemic injury from cardiac arrest and hypotension. Possibly also secondary to rhabdomyolysis. Received dialysis yesterday, removed 2L of fluid. Cr now 6.65. - Avoid nephrotoxic meds, renal dosing of meds.e - Nephrology consulted, appreciate their recommendations. Right arm edema, acute. Not present on admission. - Noted right arm edema, worse than left. - Right arm ultrasound ordered. GI Prophylaxis: Proton Pump Inhibitor VTE Prophylaxis: Sub-Q Heparin (Unfractionated) VTE Mechanical Devices: Intermittant Pneumatic CD Resuscitation Status: CPR: Attempt Resuscitation GinaJose M R Dec 08, 2016 09:45 PLAN: 1. Vent changes to PRVC ventilation. 2. Continue current regimen. 3. Proceed with dialysis. 4. Continue to withhold sedatives as needed. Will continue with fentanyl because of the history of opiate abuse. I had a long detailed discussion with the patient's family. Brought them up to date with the findings. Reviewed the case with them and attempted to answer their questions. Time spent so far in critical care, 75 minutes. GI Prophylaxis: Proton Pump Inhibitor VTE Prophylaxis: Sub-Q Heparin (Unfractionated) VTE Mechanical Devices: Intermittant Pneumatic CD Resuscitation Status: CPR: Attempt Resuscitation Jose M Fuentes Dec 08, 2016 09:45
--- NOTE | 2016-12-08 10:24 | NUR ---
NUTRITION FOLLOW UP: ASSESS: 31 YO male admitted for cardiac arrest, LEANDRO, possible GI bleed, requiring intubation. Pt with opiate addiction per notes. Hypothermia protocol was initiated on 12/04-rewarmed. Pt remains NPO X 4 days. Pt is off all sedation. EEG showed no seizure activity. He was started on temporary dialysis 12/07. Received verbal to start TF this am. Order placed in chart. PMHx: Lumbago, substance abuse. LABS: Reviewed. Bun 47, Churn Driller 6.43, T.bili 2.3, AST 57, ALT 93, Alb 2.4 MEDS: Reviewed. GI: BMx1 12/08 CURRENT WT: 102.6 kg. BMI 33.4 kg/m2, Admit wt 100 kg. IBW: 72.73 kg. DIET: NPO ESTIMATED NEEDS: VENT/BMI/DIALYSIS Calories: 4435-8062 kcal/day (20-22 kcals/kg BW) Protein: 110-130 g/day (1.5-1.8 g/kg IBW) Fluids: 9781-9600 ML fluids (22-25 ml/kg IBW) NUTRITION DIAGNOSIS: 1.) Inadequate oral intake related to decreased ability to consume sufficient energy as evidenced by current vent and NPO status.---PERSISTS. NUTRITION INTERVENTION: 1.) Recommend Nepro starting at 10 ml/hr, once tolerance established, advance 10 ml q 6 hr to goal rate of 55 ml/hr. At goal TF will provide 2178 kcal and 98 g protein; meeting 100% calorie, 89% protein needs. 2.) Recommend addition of Prosource to better meet protein needs once TF at goal rate 3.) Adjust goal rate if propofol re-started MONITOR/EVALUATE: NPO/Vent status, TF start/maldonado, labs, wt, labs, GI/nutrition status. Follow per high nutrition risk guidelines.
--- NOTE | 2016-12-08 10:33 | PROG NOTE ---
[address] [address] PROGRESS NOTE PATIENT: MIN ATKINSON : 1985 MR#: [id number] ADMIT: 12/04/2016 JOB ID: [id number] DATE: 12/08/2016 INFECTIOUS DISEASE FOLLOW UP NOTE: REASON FOR FOLLOWUP: Probable aspiration pneumonia in a patient with opioid induced respiratory distress and failure who eventually required CPR due to hypoxic cardiac arrest. INTERVAL HISTORY: Overnight, the patient has remained relatively stable in the ICU. There has been no sign of awakening even though he is now off his cooling protocol. He remains on fentanyl drip but otherwise no other sedatives or pain medications are being utilized. The patient did have a low-grade temperature spike overnight which is, of course, of concern. This case was discussed in detail with the patient's family at the bedside as well as Magdy Camargo, his private physician, and the entire ICU team during ICU rounds. PHYSICAL EXAMINATION: Reveals an unresponsive gentleman lying intubated in the ICU. The patient did twitch his head twice when I was in the room in a nonpurposeful fashion but otherwise he is completely flaccid and unresponsive. Current temperature is 37.2, he was as high as 38.2 around midnight and that is actually his first temperature now for the four days he has been here in the hospital. His pulse continues to be regular in the 80s-90s. He is on the ventilator at 35% and 6 of PEEP. Blood pressure 119/62. No vasopressor agents are being used. His urine output continues to be modest with about 500 cc over the last 24 hours. The examination of the head reveals no trauma. The eyes without conjunctivitis or chemosis. Pupils are equal. Nose normal. Oral endotracheal tube, oral gastric tube in good position. Neck without adenopathy and is supple. Lungs with some crackles at the bases but relatively few. Cardiac tones: Regular rate and rhythm without murmur. The abdomen is soft and nontender. The abdomen is soft. We cannot assess whether or not he is tender, of course. Randall catheter present. He is developing edema of all four extremities. About 2+ diffusely. No skin rash of significance noted. I failed to note on my physical examination that he has a line in his right groin for dialysis as well as a left IJ triple lumen and those lines appear benign. LABORATORIES: Include a white count which has normalized. Recall that it went as high as 13,700 shortly after admission. It is now down to 9100. The extreme left shift with band percentages up to 48% has now resolved. His current white count 84% polys, 9% lymphs, 6% monos. Platelet count stable a 85,000. Creatinine 6.55 and note that the patient has been receiving dialysis. His LFTs are relatively stable, ALT 91, AST 58, bilirubin 2.3. Procalcitonin was as high as 235 yesterday. Today 174. In view of his recent cardiac arrest, it is unclear to me what those numbers mean. Micro studies include Staph aureus two colonies found in his initial sputum. This is an MSSA Staph aureus. MRSA screen negative. Urine culture from admission negative and blood cultures from admission on the are negative. A chest x-ray done yesterday was reviewed and I personally reviewed the radiograph from yesterday. It shows bilateral infiltrates, much more so on the right than the left. I agree with the radiology opinion which is that there are bilateral opacities consistent with pulmonary edema, pneumonia, atelectasis or aspiration and it is certainly unclear exactly what is going on there. IMPRESSION: Considering the totality of the case and after extensive discussions with the patient's private physician, Dr. Magdy Camargo, Dr. Gordillo of the intensive care unit team and I are of the opinion that the events of December 04 pursued directly from nasal use or snorting what was reported to be a crushed hydrocodone tablet. Whether or not that was actually will was in the pills remains to be seen, but this seems to have triggered a series of events which led to respiratory difficulties, upper airway bleeding, a difficult intubation and eventual CPR. Nothing in history or circumstances leading up to those events would suggest that this was an infectious problem on December 04, but certainly he is at high risk for infection now that he has a profoundly abnormal mental status, multiple IV lines, is ventilator dependent and is undergoing dialysis. His low-grade temperature spike last night in and of itself is not too concerning, but I think will need to be very cognizant of the risk of infection here. He is currently on Zosyn as empiric therapy for a presumed aspiration event which occurred during a long code on [place], [place] 4. He remains at high risk of infection including additional aspiration, pneumonia, bacteremias due to line infections and/or infection related to the hemodialysis line, decubitus ulcers, now that he is not currently moving and also at high risk for DVT. RECOMMENDATIONS: 1. I would continue with Zosyn for the time being with the plan to finish a 5-7 day course. 2. Will continue to follow his cultures. 3. Yesterday, I ordered Hanta virus serology and cryptococcal antigen and we await those studies. 4. The ceftaroline he had been receiving can be stopped as we now know that there is no MRSA in his airway. 5. A repeat sputum Gram stain and culture will be ordered for today and will need to continue to follow his chest x-rays. 6. I am not certain of the exact value of following procalcitonins as his elevated procalcitonin is almost certainly due to his code event and diffuse ischemia that ensued which can give false positive readings. 7. This case discussed extensively with the ICU team as well as the family and Dr. Camargo.
--- NOTE | 2016-12-08 11:04 | PCM.PNNEPH ---
Subjective Date of Service Dec 08, 2016 Subjective The events over the last several days have been reviewed. He underwent an emergent dialysis treatment tomorrow and is scheduled to have another one today. She remains on a ventilator and sedated. His blood pressures have ranged in the 110s to low 130s. The last 24 hours she said 2590 and 08/17/2019 out in urine and 675 out since midnight. Currently his vent settings were 35% oxygen and 8 of PEEP. Exam Vital Signs Vital Sign - Last Date Time Temp Pulse Resp B/P Pulse Ox O2 Delivery O2 Flow Rate FiO2 12/08/16 09:08 99 119/62 97 35 12/08/16 04:30 37.2 20 Mechanical Ventilator Intake and Output 12/07/16 12/07/16 12/08/16 Cumulative From/Thru 15:00 23:00 07:00 12/04/16 15:53 - 12/08/16 06:00 Intake Total 804 ml 1144 ml 86470 ml Output Total 3000 ml 520 ml 675 ml 6750 ml Balance -3000 ml 284 ml 469 ml 7236 ml Intake IV Total 804 ml 1144 ml 52531 ml Output Urine Total 470 ml 525 ml 3120 ml Gastric Drainage Total 50 ml 150 ml 630 ml Ultrafiltrate 3000 ml 3000 ml # Bowel Movements 1 1 Exam Lungs a few scattered rhonchi. Heart was regular and rhythmical with a soft systolic murmur. Abdomen soft with minimal bowel sounds. There is no free fluid wave masses or the abdomen does not show any evidence of any tenseness. Extremities showed mild generalized edema and no rashes were noted. Lab and Diagnostics Result Diagram: 12/08/1661912/08/16619 Microbiology MRSA swab negative Sputum Sample negative Urine culture negative Blood cultures pending X-Rays, CTs and MRIs PROCEDURE: CT BRAIN WITHOUT CONTRAST IMPRESSION: 1. No acute intracranial findings. 2. Fluid within the right maxillary sinus and sphenoid sinuses. This is likely related to intubation; however acute sinusitis can also have this appearance. Dictated by: Alicia Napoles M.D. on 12/04/2016 at 16:35 PROCEDURE: X-RAY CHEST ONE VIEW, PORTABLE IMPRESSION: Generalized pulmonary edema, moderately severe. Endotracheal and nasogastric tubes in normal position. Dictated by: Pavel Castle M.D. on 12/04/2016 at 15:33 PROCEDURE: X-RAY CHEST ONE VIEW, PORTABLE 1. Interval placement of central venous catheter. No pneumothorax. 2. Other support devices in place. 3. Moderate pulmonary edema Dictated by: yAaan Johnson M.D. on 12/04/2016 at 16:25 PROCEDURE: X-RAY CHEST ONE VIEW, PORTABLE IMPRESSION: Endotracheal, nasogastric tube and central line as noted above, no pneumothorax. Pulmonary edema pattern greater on the right than the left but mildly improved from one day ago. Dictated by: Pavel Castle M.D. on 12/05/2016 at 8:01 PROCEDURE: X-RAY CHEST ONE VIEW, PORTABLE IMPRESSION: 1. Lines and tubes as above. 2. Perihilar and basilar opacities present consistent with developing pulmonary edema and/or diffuse bilateral pneumonia and/or atelectasis versus aspiration. Correlate clinically. Dictated by: Enoch Larson [facility] Interpreted: Pavel Castle MD on 12/07/2016 at 8: 52 12-lead ECG Sinus tachycardia, left axis deviation, prolonged QT Cardiac Echo Impressions LVEF 35-40% RV dilated and hypokinetic. Technically difficult study Plan Impression Impression #1 acute kidney injury/acute tubular necrosis secondary to cardiopulmonary arrest which appears to be in the start overall recovery phase from her to lactic acidosis which is resolved Recommendation #1 patient dialyzed today for 4 hours on a standard dialyzer, 3 potassium bath, thousand of heparin and 400/h and will attempt to take 2-3 L as tolerated. I would like to continue to follow his urine output and lab and assess his need for further dialysis on a daily basis. Also strongly urged to start tube feedings. Phuc Reyes DO Dec 08, 2016 11:04
--- NOTE | 2016-12-08 13:33 | NUR ---
Social Work: Initial Assessment/Multidisciplinary Rounds D: Per EMR review, pt is a 31 year old male admitted for cardia arrest. Pt insurance is [employer]. PCP is Issac Rankin MD. NOK is Tamar Crenshaw, mother, . Advanced directives not complete- pt not appropriate to receive information at this time. Readmit score is low, 1/8. PT discussed in multidisciplinary rounds with attending provider. Pt remains in CCU, and continues on the vent. Pt is being followed by pulmonology, nephrology, infectious disease and the ICU team. No anticipated timeframe for extubation at this time. Pt has a history of narcotic use and had reportedly nasally ingested crushed opiates several hours prior to admission. Pt screened in for intensive case management due to the complexity of his care and possible substance use. [employer] MIXER ASSEMBLER met with the patient's family (father and sister) at bedside. Sw role explained and contact information provided. Prior to admission, pt was living at home with his parents and I with his own self-care. Pt was not using any DME and driving. A: Pt who was previously I and living at home with his parents. P: At this time, the patient's discharge needs are unknown. If the attending provider feels the patient requires a chemical dependency assessment, FOOD MIXER ASSEMBLER will meet with the patient and will help to coordinate the pt's wishes in regards to treatment/discharge. FOOD MIXER ASSEMBLER to continue to follow pt's clinical course to assess for needs. CHAPINCITO Roberts Addendum: 12/08/16 at 1352 by JOSE VILLALBA Amended: Links added.
--- NOTE | 2016-12-08 18:24 | NUR ---
Vital signs and saturations stable on current support. Propofol off since prior to EEG yesterday. Fentanyl off at 0900 this morning. Pupils initially unreactive but after 9 hours off Fentanyl they are equal at around 5mm and reactive to light. No spontaneous or purposeful movement. Does not initiate breaths. Is not purposeful with gaze. Gag is not present with deep oropharyngeal suctioning. Small amount blood tinged secretions via ETT with suctioning. Odd spasm of chest muscles noted and triggered by noxious stimuli, are not hiccoughs. Tube feeds started, OG output when suction discontinued was less than 50mls. Diarrhea stool x2. UOP 240mls/12h. T max 38.2. Please see CCU flowsheet for VS details. Family here throughout day, care explained as given, questions answered as able.
--- NOTE | 2016-12-08 18:47 | PCM.PNMED ---
Subjective Date of Service Dec 08, 2016 Subjective The patient is a 31-year-old with a history of opiate addiction who was brought to the ED by EMS unresponsive. Admitted for cardiac arrest secondary to acute hypoxic and hypercapnic respiratory failure. Nursing reports that patient spiked a fever 38.5 overnight and had intermittent shivering episodes. Patient remained on Fentanyl until 0900 12/08. Patient seen and examined. Patient currently mechanically ventilated. Unable to complete a full ROS secondary to patient's status. Exam Vital Signs Vital Sign - Last Date Time Temp Pulse Resp B/P Pulse Ox O2 Delivery O2 Flow Rate FiO2 12/08/16 16:33 77 140/75 98 35 12/08/16 16:00 Ventilator 12/08/16 16:00 37.8 20 Intake and Output 12/07/16 12/07/16 12/08/16 Cumulative From/Thru 15:00 23:00 07:00 12/04/16 15:53 - 12/08/16 06:00 Intake Total 804 ml 1144 ml 56148 ml Output Total 3000 ml 520 ml 675 ml 6750 ml Balance -3000 ml 284 ml 469 ml 7236 ml Intake IV Total 804 ml 1144 ml 72657 ml Output Urine Total 470 ml 525 ml 3120 ml Gastric Drainage Total 50 ml 150 ml 630 ml Ultrafiltrate 3000 ml 3000 ml # Bowel Movements 1 1 Exam Constitutional: Unresponsive and mechanically ventilated. Does not respond to verbal or physical stimuli. Head: normocephalic and atraumatic Eyes: Pupils are sluggish, but round and reactive to light. No scleral icterus. [place] conjunctiva. Heart: regular rate and rhythm. 1+ peripheral edema. Lungs: clear to auscultation. no wheeze, rales, or rhonchi. ABD: soft, bowel sounds diminished throughout. Musculoskeletal: appropriate muscle tone. Patient unresponsive Skin: warm, dry, no rashes Neuro: No gag reflex during oral suction. Pupils reactive, but sluggish. psych: unable to assess secondary to patient's condition. IVs and Medications IV Fluids 2L Dextrose in NS in the last 24 hours 1L NS given in the last 24 hours. Medications Reviewed: Medications were reviewed in detail Medications High Risk IV Medications Zosyn Lab and Diagnostics Item Value Date Time Red Blood Count 3.80 mil/mm3 L 12/08/16 0620 Mean Corpuscular Volume 83.7 fL 8/8/17 0620 Mean Corpuscular Hemoglobin 29.2 pg 12/08/16619 Mean Corpuscular Hemoglobin Concent 34.9 % 12/08/16619 Red Cell Distribution Width 14.0 % 12/08/16619 Neutrophils (%) (Auto) 83.5 % H 12/08/16619 Lymphocytes (%) (Auto) 9.1 % L 12/08/16619 Monocytes (%) (Auto) 5.6 % 12/08/16619 Eosinophils (%) (Auto) 1.4 % 12/08/16619 Basophils (%) (Auto) 0.2 % 12/08/16619 Estimat Glomerular Filtration Rate 11 mL/min 12/08/16619 Calcium Level 7.8 mg/dL L 12/08/16619 Total Bilirubin 2.3 mg/dL H 12/08/16619 Aspartate Amino Transf (AST/SGOT) 58 U/L H 12/08/16619 Alanine Aminotransferase (ALT/SGPT) 91 U/L H 12/08/16619 Alkaline Phosphatase 102 U/L 12/08/16619 Total Protein 5.2 g/dL L 12/08/16619 Albumin 2.5 g/dL L 12/08/16619 Procalcitonin 174.55 ng/mL H 12/08/16619 Result Diagram: 12/08/1661912/08/16619 Microbiology MRSA swab negative Sputum Sample negative Urine culture negative Blood cultures pending X-Rays, CTs and MRIs PROCEDURE: CT BRAIN WITHOUT CONTRAST IMPRESSION: 1. No acute intracranial findings. 2. Fluid within the right maxillary sinus and sphenoid sinuses. This is likely related to intubation; however acute sinusitis can also have this appearance. Dictated by: Alicia Napoles M.D. on 12/04/2016 at 16:35 PROCEDURE: X-RAY CHEST ONE VIEW, PORTABLE IMPRESSION: Generalized pulmonary edema, moderately severe. Endotracheal and nasogastric tubes in normal position. Dictated by: Pavel Castle M.D. on 12/04/2016 at 15:33 PROCEDURE: X-RAY CHEST ONE VIEW, PORTABLE 1. Interval placement of central venous catheter. No pneumothorax. 2. Other support devices in place. 3. Moderate pulmonary edema Dictated by: Ayaan Johnson M.D. on 12/04/2016 at 16:25 PROCEDURE: X-RAY CHEST ONE VIEW, PORTABLE IMPRESSION: Endotracheal, nasogastric tube and central line as noted above, no pneumothorax. Pulmonary edema pattern greater on the right than the left but mildly improved from one day ago. Dictated by: Pavel Castle M.D. on 12/05/2016 at 8:01 PROCEDURE: X-RAY CHEST ONE VIEW, PORTABLE IMPRESSION: 1. Lines and tubes as above. 2. Perihilar and basilar opacities present consistent with developing pulmonary edema and/or diffuse bilateral pneumonia and/or atelectasis versus aspiration. Correlate clinically. Dictated by: Enoch Larson [facility] Interpreted: Pavel Castle MD on 12/07/2016 at 8: 52 12-lead ECG Sinus tachycardia, left axis deviation, prolonged QT Cardiac Echo Impressions LVEF 35-40% RV dilated and hypokinetic. Technically difficult study Assessment & Plan The patient is a 31-year-old with a history of opiate addiction who was brought to the ED by EMS unresponsive. Admitted for cardiac arrest secondary to acute hypoxic and hypercapnic respiratory failure. Acute hypoxic and hypocapnic respiratory failure. Present on admission. Ongoing. - Occurred following intentional inhalation of prescription opiates. Possibly secondary to acute noncardiogenic pulmonary edema associated with opiate inhalation. Patient was switched from PC-UMM to PRVC yesterday, ventilating well. - Continue mechanical ventilation with PRVC. - Currently off of Fentanyl - Critical care following and managing mechanical ventilation Acute cardiac arrest. Present on admission. Stable. - Secondary to hypoxic respiratory failure. Likely not cardiogenic. Pt has had a high frequency tremor during cooling and rewarming, which seems to have resolved since yesterday. Likely shivering; unlikely to be seizure activity given lack of seizure activity on the EEG.. - Continue mechanical ventilation Hypoxic encephalopathy, acute. Present on admission. Ongoing. - Pt continues to be unresponsive, pupils sluggish, but reactive after 9 hours off of Fentanyl. - Currently sedation has been weaned off. - EEG showed low amplitude and slow activity with no ongoing seizure activity or epileptiform abnormalities, which was reassuring. Altered mental status may also be secondary to opiate and alcohol use. - Currently off of Fentanyl Fever, acute, not present on admission, Resolved. - Pt had a fever overnight, which improved with Tylenol. He originally presented with leukocytosis and bandemia, which have now normalized. Procalcitonin was elevated but can be falsely elevated following cardiac arrest and CPR. Blood and urine cultures were negative. Sputum cultures showed 2 colonies of MSSA, uncertain if this is colonization or infection. Viral PCR negative. Per Dr. Abdulkadir Camargo (patient's primary doctor and substance abuse doctor), he was seen last Wednesday and had no major complaints except for weakness, and did not appear infectious at the time. It is still doubtful that there is active infection, but will cover with antibiotics in the meantime. - Treating with Zosyn. Stopped ceftaroline (12/08). - Repeat sputum culture - Dr Barahona of Infectious Disease is following. We appreciate his input. Acute kidney injury. Present on admission. Ongoing. - Likely secondary to ischemic injury from cardiac arrest and hypotension. Possibly also secondary to rhabdomyolysis. Received dialysis again (12/08) - Avoid nephrotoxic meds, renal dosing of meds. - Nephrology consulted, appreciate their recommendations. Right arm edema, acute. Not present on admission. Stable. - Noted right arm edema, worse than left. - Right arm ultrasound ordered. Elevated liver enzymes, acute. Present on admission. Improving. - LFTs elevated on admission. Secondary to hypoperfusion vs sepsis. There are some concerns for alcoholic hepatitis. - Patient placed on Thiamine drip - Continue to monitor LFTs. Elevated troponin, acute. Present on admission. Improving. - Troponin 0.724 on admission. Likely secondary to demand ischemia and myocardial injury during CPR/defib. Pt negative for amphetamines. Unlikely to have CAD. - Trend troponin Q6 until normalized. Trending down. Anion gap metabolic acidosis, acute. Present on admission. Resolved. - Secondary to lactic acidosis. - Lactic acid normalized - Sodium acetate gtt, bicarb unavailable History of opioid abuse. - Serum tox screen negative despite history of snorting opiates today. - Social work consult Maintenance: - Insulin gtt for blood glucose control. Patient is FULL CODE Disposition: Patient is mechanically ventilated and sedated, blood cultures are still pending and empiric antibiotics are currently being administered. As patient is requiring continued critical care and support, length of stay is undetermined at this time. The patient's situation remains tenuous at this time. Currently it is felt that most of the patient's origin of problems comes from drug abuse and alcohol abuse. At this time we are still uncertain if the patient only snorted OxyContin as he did purchase this from the street and could potentially be mixed with other street drugs with or without the patient' s knowledge. The family is pursuing this further with current drug enforcement task group to potentially tract on the source of the OxyContin to find out if it was laced with anything else that could potentially be reversible. GI Prophylaxis: Proton Pump Inhibitor VTE Prophylaxis: Sub-Q Heparin (Unfractionated) Resuscitation Status: CPR: Attempt Resuscitation GI Prophylaxis: Proton Pump Inhibitor VTE Prophylaxis: Sub-Q Heparin (Unfractionated) VTE Mechanical Devices: Intermittant Pneumatic CD Resuscitation Status: CPR: Attempt Resuscitation Attending Statement The patient was seen and examined together with Dr. Beyer on 12/08/16 and I have added additional information to the note above. Dom Beyer DO Dec 08, 2016 18:46 Kari Sullivan DO Dec 10, 2016 17:44
--- NOTE | 2016-12-08 19:45 | NUR ---
Dialysis note: 4 hours tx 3000 ml net UF Right femoral catheter, dsg dry and intact Pls see DTR for VS details Qb 300-350 Heparin given On vent @ 35% FiO2 with sat in the 90's Tolerated tx, family visited during tx Catheter flushed, heparin dwelled and secured Stable condition at end of tx Report given to Abu RN
[2016-12-08] MEDS ORDERED: Heparin 5,000 Unit/mL Inj IVPUSH PRN (22:05)
--- NOTE | 2016-12-08 22:06 | DRSVH ---
PROCEDURE: US VENOUS ARM DUPLEX UNILATERAL, RIGHT INDICATIONS: R arm swelling TECHNIQUE: Real-time imaging, as well as color and pulse Doppler interrogation, was performed of the right upper extremity deep veins from the inferior neck to the antecubital fossa. COMPARISON: None. FINDINGS: The internal jugular vein, visualized portions of the subclavian vein, and axillary veins are free of intraluminal thrombus. There is some nonocclusive thrombus in the brachial vein. There is some nonocclusive thrombus in the basilic vein. The cephalic vein shows occlusive thrombus. IMPRESSION: Occlusive thrombus in the superficial vein, cephalic vein and nonocclusive thrombus involving the bas ilic and brachial veins on the right. Dictated by: Kyaw Mcclain M.D. on 12/08/2016 at 22:02 Approved by: Kyaw Mcclain M.D. on 12/08/2016 at 22:05
[2016-12-08] MEDS: Albuterol HFA 60 Puff 8 Gm Inhaler INHALATION SCH (22:07)
[2016-12-08 23:24] LABS: BASOPHILS % (AUTO) 0.3 % (0-3); EOSINOPHILS % (AUTO) 1.2 % (0-5); MONOCYTES % (AUTO) 11.7 % (4-12); Mean Corpuscular Hemoglobin 29.2 pg (27.0-35.0); Mean Corpuscular Volume 84.9 fL (81-100); NEUTROPHILS % (AUTO) 75.8 % (40-74); Platelet Count 102 bil/L (150-400)
[2016-12-08] MEDS: Heparin 25K Unit/500mL 0.45 NS 25,000 UNIT in IV Premix 1 EACH IV SCH (23:52)
[2016-12-09] VITALS (13 sets, daily range): BP systolic 126–143; BP diastolic 72–88; PULSE 64–94; RESP 20; O2SAT 93–96
[2016-12-09] MEDS: Insulin LISPRO 300 Unit/3 mL Inj SUBQ SCH ×4 (02:38→20:09)
[2016-12-09] MEDS: Chlorhexidine 0.12% 15 mL Oral Solution MT SCH ×5 (05:38→20:09)
[2016-12-09 06:17] LABS: BASOPHILS % (AUTO) 0.4 % (0-3); EOSINOPHILS % (AUTO) 1.8 % (0-5); MONOCYTES % (AUTO) 14.2 % (4-12); Mean Corpuscular Hemoglobin 28.7 pg (27.0-35.0); Mean Corpuscular Volume 85.9 fL (81-100); NEUTROPHILS % (AUTO) 66.8 % (40-74); Platelet Count 103 bil/L (150-400)
--- NOTE | 2016-12-09 07:23 | NUR ---
Neuro / Heparin / TF/ Temp Pt opens his eyes but does not track or follows commands appropriately. He has gag reflex when deep suctioning. Right arm positive for DVT thus Heparin DVT protocol initiated. Next PTT at 1130. T-max 38.5 ax.VSS. Tolerating TF well. Current TF rate at 30 ml/hr. No overt complications noted. Refer to CCU flowsheet for further details.
[2016-12-09 07:35] LABS: TROPONIN T 0.043 ug/L (0.0-0.011)
[2016-12-09] MEDS: Norepineph 8,000 mCg/250 mL NS 8,000 MCG in IV Premix 1 EACH IV SCH (08:20)
[2016-12-09] MEDS: LacriLube S.O.P. 3.5 Gm Ophthalmic Ointment BOTH_EYES SCH ×2 (08:50→20:02)
[2016-12-09] MEDS: Pantoprazole 4 mg/mL 10 mL Inj IVPUSH SCH ×2 (08:50→17:15)
[2016-12-09] MEDS: Piperacillin-Tazo 3.375 Gm Inj 3.375 GM in Dextrose 5% Minibag Plus 50 ML IV SCH ×2 (09:02→20:09)
[2016-12-09] MEDS: Thiamine Inj 200 MG in Dextrose 5% 50 ML IV SCH (09:02)
--- NOTE | 2016-12-09 09:55 | PROG NOTE ---
[address] [address] PROGRESS NOTE PATIENT: MIN ATKINSON : 1985 MR#: [id number] ADMIT: 12/04/2016 JOB ID: [id number] DATE: 12/09/2016 REASON FOR FOLLOW UP: Prolonged respiratory insufficiency complicated by cardiopulmonary arrest, complicated by prolonged altered mental status in a patient who is ventilator dependent in the ICU. INTERVAL HISTORY: Overnight, there has been little change in the patient's mental status in terms of awakening. He has now been off all sedatives and pain meds for 24 hours or so. He continues to be in renal failure and to require hemodialysis with relatively low urine output. The major new development of the past 36 hours has been the development of fevers. During his first three days or so in the hospital, he was afebrile, but starting about 36 hours ago he started to develop low-grade fevers, which have gradually increased. This has led to a search for causes of nosocomial infection and/or fever which continues. This case was discussed with the ICU team as well as with the patient's family. PHYSICAL EXAMINATION: Reveals an unresponsive, intubated, young man, lying supine in the ICU. His temperature a couple of hours ago 38.5, right now 37.5, pulse 91, respiratory rate 22, but of course he has been completely ventilator dependent. Blood pressure 135/80. He is saturating well on 35% and 6 of PEEP. Examination of the head reveals no trauma. His neck is completely supple. Eyes without change. Pupils do respond to light. Oral cavity with oral endotracheal tube, oral gastric tube in place. There is no herpetic lesions. The patient's right arm is grossly swollen as opposed to the left, and we already have an ultrasound which shows clots in the superficial vasculature on the right. Cardiac tones regular rate and rhythm without significant murmur. Lungs with a few crackles at the bases but not impressive on the either side. Abdomen completely soft, nontender. No organomegaly. No ascites. Penis and scrotum appear normal. Randall catheter is present. There is a left IJ triple lumen line in place which appears benign. There is also a right groin dialysis line which also appears benign. No evidence of synovitis. Aside from the swelling of the right upper extremity, there is no peripheral edema to speak of except perhaps a trace around the ankles. Peripheral pulses are excellent and the extremities are well perfused. The patient is, as mentioned, unresponsive. LABORATORIES: Include a white count of 5400, the diff is basically normal now with a mild monocytosis. Creatinine 5.29, but of course he is being dialyzed. Bilirubin 1.4. ALT 71, those are slightly improved. Albumin 2.5. Procalcitonin still grossly elevated but it is difficult to interpret in view of his recent prolonged CPR. RPR, hep C, HIV, all negative. Micro studies include negative blood cultures from admission on the . Urine culture was also negative. MRSA PCR of the nares negative. Sputum from admission had two colonies of MSSA, otherwise no pathogens. IMAGING: Includes the ultrasound of the arm which shows occlusive clots in the superficial cephalic vein as well as nonocclusive thrombus in the basilic and brachial veins on the right. We do not have a chest x-ray today. IMPRESSION: This is an extremely disconcerting case of a gentleman who reportedly had snorted what was purported to be prescription narcotic pill and then developed some breathing difficulties and bleeding from the upper airway. At the time the ambulance arrived to assist him, he was still lucid and able to, in fact, ambulate. There was no preceding history of febrile or infectious sounding illness. During the ambulance ride, there were progressive difficulties with his respiratory status which required attempts at intubation which were not successful until he reached the hospital by which time he had cardiac arrhythmias including ventricular fibrillation and into a long code following these events. When initially admitted, his white count was normal but soon developed pronounced left shift which is likely secondary to his prolonged CPR. He was found to have grossly elevated procalcitonin, but of course, intestinal ischemia, cardiac dysfunction and heart failure can cause falsely elevated procalcitonin, as can renal failure, and all of these circumstances would seem to apply, and I am not certain what to make of the very high procalcitonin we have seen since admission. Though I do not think his initial presentation was one of infection, but was related to the drug use and upper airway bleeding, he has now developed nosocomial fevers. The differential diagnosis here includes DVT, which we already know he has, as well as line infection from either his neck or groin line, possible fungemia, possible evolving aspiration pneumonia and/or lung abscess, or more unlikely possibilities such as evolving decubitus ulcer or drug fever. RECOMMENDATIONS: 1. Sputum Gram stain and culture. 2. Chest x-ray. 3. Consider CT of the chest at this point. 4. Lipase will be added on to this morning's labs. 5. Blood cultures x3 will be ordered. These will be done from the skin, the IJ and the groin lines as mentioned. 6. For now, we will continue with the Zosyn which I think remains appropriate for what is certainly an aspiration pneumonia, but if his fevers continue, we may need to alter our treatment somewhat in terms of antibiotic coverage. 7. In view of his brain injury, this is one of the indications for attempting to keep patients afebrile as opposed to letting them spike which in ordinary circumstances is probably beneficial for infection. 8. This case discussed in detail with the patient's extended family as well as the ICU team.
--- NOTE | 2016-12-09 11:04 | NUR ---
NUTRITION FOLLOW UP: ASSESS: 31 YO male admitted for cardiac arrest, LEANDRO, possible GI bleed, requiring intubation. Pt with opiate addiction per notes. Hypothermia protocol was initiated on 12/04-rewarmed. Pt is off all sedation. EEG showed no seizure activity. He was started on temporary dialysis 12/07, receiving daily dialysis. TF was started 12/08. Tolerating well with minimal residuals. Currently running at 30ml/hr and advancing towards goal rate. PMHx: Lumbago, substance abuse. LABS: Reviewed. Na 146, Bun 40, prior authorization nurse 5.29, Glu 113, Ca 8.2, T.bili 1.4, AST 55, ALT 71, Alb 2.5, lipase 899 MEDS: Reviewed. GI: BMx2 12/08 CURRENT WT: 99.3 kg. BMI 32.3 kg/m2, Admit wt 100 kg. IBW: 72.73 kg. DIET: NPO NUTRITION SUPPORT: Nepro @ 30ml/hr providing 1188kcal and 53g pro (~55% estimated needs) ESTIMATED NEEDS: VENT/BMI/DIALYSIS Calories: 6747-5613 kcal/day (20-22 kcals/kg BW) Protein: 110-130 g/day (1.5-1.8 g/kg IBW) Fluids: 8081-6684 ML fluids (22-25 ml/kg IBW) NUTRITION DIAGNOSIS: 1.) Inadequate oral intake related to decreased ability to consume sufficient energy as evidenced by current vent and NPO status.---PERSISTS. NUTRITION INTERVENTION: 1.) Recommend continue to advance Nepro TF by 10 ml q 6 hr to goal rate of 55 ml/hr. At goal TF will provide 2178 kcal and 98 g protein; meeting 100% calorie, 89% protein needs. 2.) Recommend addition of Prosource to better meet protein needs once TF at goal rate 3.) Adjust goal rate if propofol re-started MONITOR/EVALUATE: NPO/Vent status, TF malodnado/advc, labs, wt, labs, GI/nutrition status. Follow per high nutrition risk guidelines.
--- NOTE | 2016-12-09 11:35 | PCM.PNNEPH ---
Subjective Date of Service Dec 09, 2016 Subjective The patient's condition is about the same. He remains on a ventilator and sedation has been weaned however he is not waking up. Yesterday he had a total of 765 in urine output and 200 and pulse of urine output in the first 8 hours today. His hemoglobin today is 11.4, sodium is 144, potassium 4.1, chloride 104 , bicarbonate 21, BUN and creatinine were 52 and 6.55, albumin 2.5 and his liver function studies continue to improve. Exam Vital Signs Vital Sign - Last Date Time Temp Pulse Resp B/P Pulse Ox O2 Delivery O2 Flow Rate FiO2 12/09/16 10:55 68 137/85 96 35 12/09/16 04:30 38.5 20 Mechanical Ventilator Intake and Output 12/08/16 12/08/16 12/09/16 Cumulative From/Thru 15:00 23:00 07:00 12/04/16 15:53 - 12/09/16 05:45 Intake Total 979 ml 1202 ml 64346 ml Output Total 3290 ml 200 ml 81050 ml Balance -2311 ml 1002 ml 5927 ml Intake IV Total 979 ml 961 ml 56709 ml Tube Feeding 161 ml 161 ml Tube Irrigant 80 ml 80 ml Output Urine Total 240 ml 200 ml 3560 ml Gastric Drainage Total 50 ml 680 ml Ultrafiltrate 3000 ml 6000 ml # Bowel Movements 1 2 Exam Patient is on remains on a ventilator and is not having any spontaneous respirations or if she responds to painful stimuli. Lungs are demonstrating a few scattered rhonchi. Heart is regular and rhythmical with a soft systolic murmur. Abdomen soft without any tenderness rebound guarding or masses or hepatosplenomegaly. Extremities did not show any evidence of any clubbing or cyanosis serous mild generalized edema. No rashes noted. Lab and Diagnostics Result Diagram: 12/09/16 0600 12/09/16 0600 Microbiology MRSA swab negative Sputum Sample negative Urine culture negative Blood cultures pending X-Rays, CTs and MRIs PROCEDURE: CT BRAIN WITHOUT CONTRAST IMPRESSION: 1. No acute intracranial findings. 2. Fluid within the right maxillary sinus and sphenoid sinuses. This is likely related to intubation; however acute sinusitis can also have this appearance. Dictated by: Alicia Napoles M.D. on 12/04/2016 at 16:35 PROCEDURE: X-RAY CHEST ONE VIEW, PORTABLE IMPRESSION: Generalized pulmonary edema, moderately severe. Endotracheal and nasogastric tubes in normal position. Dictated by: Pavel Castle M.D. on 12/04/2016 at 15:33 PROCEDURE: X-RAY CHEST ONE VIEW, PORTABLE 1. Interval placement of central venous catheter. No pneumothorax. 2. Other support devices in place. 3. Moderate pulmonary edema Dictated by: Ayaan Johnson M.D. on 12/04/2016 at 16:25 PROCEDURE: X-RAY CHEST ONE VIEW, PORTABLE IMPRESSION: Endotracheal, nasogastric tube and central line as noted above, no pneumothorax. Pulmonary edema pattern greater on the right than the left but mildly improved from one day ago. Dictated by: Pavel Castle M.D. on 12/05/2016 at 8:01 PROCEDURE: X-RAY CHEST ONE VIEW, PORTABLE IMPRESSION: 1. Lines and tubes as above. 2. Perihilar and basilar opacities present consistent with developing pulmonary edema and/or diffuse bilateral pneumonia and/or atelectasis versus aspiration. Correlate clinically. Dictated by: Enoch Larson [facility] Interpreted: Pavel Castle MD on 12/07/2016 at 8: 52 12-lead ECG Sinus tachycardia, left axis deviation, prolonged QT Cardiac Echo Impressions LVEF 35-40% RV dilated and hypokinetic. Technically difficult study Plan Impression Impression #1 acute tubular necrosis secondary to cardiopulmonary arrest number to lactic acidosis which is resolved Recommendations #1 the patient's predialysis today for 4 hours on a standard dialyzer, 3 potassium bath, no heparin, 400 one flow rate with a 600 dialysate flow rate, 37 bicarbonate, and will attempt to take 3-4 L as tolerated. Phuc Reyes DO Dec 09, 2016 11:35
--- NOTE | 2016-12-09 13:26 | PCM.PNMED ---
Subjective Date of Service Dec 09, 2016 Subjective ICU Progress Note The patient is a 31-year-old with a history of opiate addiction who was brought to the ED by EMS unresponsive. Admitted for cardiac arrest secondary to acute hypoxic and hypercapnic respiratory failure. Overnight, he began to open his eyes spontaneously, but did not produce any meaningful movements. He was febrile overnight with Tmax 38.5. Otherwise uneventful. Exam Vital Signs Vital Sign - Last Date Time Temp Pulse Resp B/P Pulse Ox O2 Delivery O2 Flow Rate FiO2 12/09/16 10:55 68 137/85 96 35 12/09/16 04:30 38.5 20 Mechanical Ventilator Intake and Output 12/08/16 12/08/16 12/09/16 Cumulative From/Thru 15:00 23:00 07:00 12/04/16 15:53 - 12/09/16 05:45 Intake Total 979 ml 1202 ml 89942 ml Output Total 3290 ml 200 ml 44517 ml Balance -2311 ml 1002 ml 5927 ml Intake IV Total 979 ml 961 ml 31517 ml Tube Feeding 161 ml 161 ml Tube Irrigant 80 ml 80 ml Output Urine Total 240 ml 200 ml 3560 ml Gastric Drainage Total 50 ml 680 ml Ultrafiltrate 3000 ml 6000 ml # Bowel Movements 1 2 Exam Constitutional: Sedated and intubated. Unresponsive. In no acute distress. HEENT: Normocephalic and atraumatic. No scleral icterus. Pupils normal size and reactive to light. Does not track movements. Heart: Regular rate and rhythm. No murmurs, rubs, gallops. Lungs: Clear to auscultation bilaterally. Abdomen: Soft. Bowel sounds present. No masses. Extremities: Bilateral upper and lower extremity edema present. R arm more edematous than left. Skin: Warm, dry, no rashes Neuro: Patient unresponsive. Vent Settings FiO2: 35 PEEP set: 6 PEEP measured: 7 Rate: 20 VT: 500 Peak: 20 Plat: 17 Lab and Diagnostics Result Diagram: 12/09/16 0612/09/16 06 Microbiology MRSA swab negative Sputum Sample negative Urine culture negative Blood cultures pending X-Rays, CTs and MRIs PROCEDURE: CT BRAIN WITHOUT CONTRAST IMPRESSION: 1. No acute intracranial findings. 2. Fluid within the right maxillary sinus and sphenoid sinuses. This is likely related to intubation; however acute sinusitis can also have this appearance. Dictated by: Alicia Napoles M.D. on 12/04/2016 at 16:35 PROCEDURE: X-RAY CHEST ONE VIEW, PORTABLE IMPRESSION: Generalized pulmonary edema, moderately severe. Endotracheal and nasogastric tubes in normal position. Dictated by: Pavel Castle M.D. on 12/04/2016 at 15:33 PROCEDURE: X-RAY CHEST ONE VIEW, PORTABLE 1. Interval placement of central venous catheter. No pneumothorax. 2. Other support devices in place. 3. Moderate pulmonary edema Dictated by: Ayaan Johnson M.D. on 12/04/2016 at 16:25 PROCEDURE: X-RAY CHEST ONE VIEW, PORTABLE IMPRESSION: Endotracheal, nasogastric tube and central line as noted above, no pneumothorax. Pulmonary edema pattern greater on the right than the left but mildly improved from one day ago. Dictated by: Pavel Castle M.D. on 12/05/2016 at 8:01 PROCEDURE: X-RAY CHEST ONE VIEW, PORTABLE IMPRESSION: 1. Lines and tubes as above. 2. Perihilar and basilar opacities present consistent with developing pulmonary edema and/or diffuse bilateral pneumonia and/or atelectasis versus aspiration. Correlate clinically. Dictated by: Enoch Larson RRA Interpreted: Pavel Castle MD on 12/07/2016 at 8: 52 12-lead ECG Sinus tachycardia, left axis deviation, prolonged QT Cardiac Echo Impressions LVEF 35-40% RV dilated and hypokinetic. Technically difficult study Assessment & Plan The patient is a 31-year-old with a history of opiate addiction who was brought to the ED by EMS unresponsive. Admitted for cardiac arrest secondary to acute hypoxic and hypercapnic respiratory failure. Acute hypoxic and hypocapnic respiratory failure. Present on admission. - Occurred following intentional inhalation of prescription opiates. Possibly secondary to acute noncardiogenic pulmonary edema associated with opiate inhalation. Patient was switched from PC-UMM to PRVC yesterday, ventilating well. - Continue mechanical ventilation with PRVC. - Weaning off fentanyl gtt Acute cardiac arrest. Present on admission. Stable. - Secondary to hypoxic respiratory failure. Pt became pulseless after becoming hypoxic. Likely not cardiogenic. Pt has had a high frequency tremor during cooling and rewarming, which seems to have resolved since yesterday. Likely shivering; unlikely to be seizure activity given lack of seizure activity on the EEG. Pt weaning off all sedation and has been off pressors since yesterday. - Continue mechanical ventilation Hypoxic encephalopathy, acute. Present on admission. Ongoing. - Pt continues to be unresponsive, with fixed pinpoint pupils. Altered mental status may also be secondary to opiate and alcohol use. Weaned off all sedation with no improvement in mental status. Per Dr. Preciado, will repeat EEG and head CT - Head CT pending - EEG pending Fever, acute. - Pt continues to have fevers overnight. He originally presented with leukocytosis and bandemia, which have now normalized. Procalcitonin was elevated but has been declining steadily. Procalcitonin can be falsely elevated following cardiac arrest and CPR. Blood and urine cultures were negative. Sputum cultures showed 2 colonies of MSSA, uncertain if this is colonization or infection. Viral PCR negative. It is still doubtful that there is active infection, but will cover with antibiotics in the meantime. - Treating with Zosyn. - Repeat sputum culture - Fungal blood cultures - Chest CT repeated - Dr Barahona of Infectious Disease is following. We appreciate his input. Acute kidney injury. Present on admission. - Likely secondary to ischemic injury from cardiac arrest and hypotension. Possibly also secondary to rhabdomyolysis. Received dialysis yesterday, removed 2L of fluid. Cr now 6.65. - Avoid nephrotoxic meds, renal dosing of meds. - Nephrology consulted, appreciate their recommendations. Right arm DVT, acute. Not present on admission. - Noted right arm edema, worse than left. R arm US showed DVT. - Heparin gtt GI Prophylaxis: Proton Pump Inhibitor VTE Prophylaxis: Sub-Q Heparin (Unfractionated) VTE Mechanical Devices: Intermittant Pneumatic CD Resuscitation Status: CPR: Attempt Resuscitation Jose M Fuentes Dec 09, 2016 13:26
--- NOTE | 2016-12-09 13:43 | DRSVH ---
PROCEDURE: X-RAY CHEST ONE VIEW, PORTABLE ([id number]) INDICATIONS: PNEUMONIA TECHNIQUE: One view of the chest was acquired. COMPARISON: [facility], CR, XR CHEST 1VW (PORTABLE), 12/07/2016, 4:12. FINDINGS: Surgical changes and devices: Stable position ETT, nasogastric tube and left IJ CVL. Lungs and pleura: Pulmonary edema has diminished and there is persistent airspace opacity within the mid left lung and the lung bases. Small left pleural effusion is likely present. Mediastinum: Mediastinal contours appear normal. Heart size is normal. Bones and chest wall: No suspicious bony lesions. Overlying soft tissues appear unremarkable. IMPRESSION: Decreasing edema and persistent bilateral airspace opacities consistent with residual pat melanie pulmonary edema versus atelectasis or pneumonia. Continued radiographic surveillance to resolutio n is recommended. Dictated by: Enoch Larson Miguel Interpreted: Pavel Castle MD on 12/09/2016 at 12:00 Approved by: Pavel Castle M.D. on 12/09/2016 at 13:40
--- NOTE | 2016-12-09 13:45 | NUR ---
Dialysis note: 4 hours tx 4000 ml net UF Right femoral catheter, dsg dry and intact Pls see DTR for VS details Qb 400-450 No extra heparin given, already on heparin gtt On vent @ 35% FiO2 with sat in the 90's Tolerated tx, family visited during tx Catheter flushed, heparin dwelled and secured Stable condition at end of tx Report given to Ambika POSEY
--- NOTE | 2016-12-09 14:39 | DRSVH ---
PROCEDURE: CT BRAIN WITHOUT CONTRAST ([id number]) INDICATIONS: anoxic injury TECHNIQUE: Noncontrast 4.5 mm thick angled axial sections acquired from the foramen magnum to the vertex, with c oronal reformats. COMPARISON: Merged With [facility], CT, CT BRAIN WO CON, 12/04/2016, 16:33. FINDINGS: Image quality: Limited by patient positioning factors. CSF spaces: Basal cisterns are patent. No extra-axial fluid collections. Ventricles are normal in size and shape. Brain: No midline shift. No intracranial masses or hemorrhage. Cornejo-white matter interface is norm al. Skull and face: Calvarium and visualized facial bones are intact, without suspicious lesions. Sinuses: Mastoids are clear. There is increased, severe bilateral sphenoid sinus mucosal thickening. There is increased, moderate bilateral maxillary sinus mucosal thickening. There is increased, mild b ilateral posterior ethmoid air cell mucosal thickening. IMPRESSION: 1. No acute process. MRI may be helpful for further assessment. 2. Sinus disease. Dictated by: Slade Alvarez M.D. on 12/09/2016 at 14:36 Approved by: Slade Alvarez M.D. on 12/09/2016 at 14:37
--- NOTE | 2016-12-09 15:15 | DRSVH ---
PROCEDURE: CT CHEST WITHOUT CONTRAST ([id number]) INDICATIONS: fever TECHNIQUE: Noncontrast 5 mm thick sections acquired from the pulmonary apices to the posterior costophrenic angl es. 7 mm thick coronal and sagittal MIP reformats were then acquired. For radiation dose reduction, the following was used: automated exposure control, adjustment of mA and/or kV according to patient size. COMPARISON: [facility], CR, XR CHEST 1VW (PORTABLE), 12/09/2016, 10:33. FINDINGS: Image quality: Excellent. Lungs and pleura: Moderate dependent bilateral lower lobe air space opacity is present. Trace right pleural effusion. No pneumothorax. Central and peripheral airways are patent and normal in caliber. Mediastinum: Heart size is normal. No pericardial effusion. No mediastinal adenopathy by size crit eria. Thoracic aorta and central pulmonary arteries are normal in size. Esophagus is normal in livier marcelina. No hiatal hernia. Bones and chest wall: No suspicious bony lesions. No vertebral body compression fractures. No axil mookie or supraclavicular adenopathy by size criteria. Thyroid gland is within normal limits. Abdomen: Portions of the upper abdomen demonstrate a small amount of pneumoperitoneum. IMPRESSION: 1. Small amount of pneumoperitoneum. Findings indicate bowel rupture, unless there is a history of re cent abdominopelvic surgery. 2. Moderate bilateral lower lobe pneumonia. Small right parapneumonic effusion. Continued plain film surveillance is recommended to ensure resolution, and to exclude underlying or central malignancy. 3. Findings discussed with Dr. Sullivan on 12.09.16 at 1512 hrs. Dictated by: Slade Alvarez M.D. on 12/09/2016 at 15:06 Approved by: Slade Alvarez M.D. on 12/09/2016 at 15:14
--- NOTE | 2016-12-09 15:53 | PROCED ---
[address] [address] EEG PATIENT: MIN ATKINSON : 1985 MR#: [id number] ADMIT: 12/04/2016 JOB ID: [id number] DATE: 12/09/2016 REQUESTING PHYSICIAN: Kari Sullivan D.O. CLINICAL HISTORY: The patient is a 31-year-old gentleman with drug overdose resulting in cardiopulmonary failure and prolonged time to intubation with possible hypoxic injury. He has failed to regain consciousness following cooling protocol. DESCRIPTION: The patient is comatose and on a respirator. There is diffuse slowing noted approximately 2-3 hertz throughout the recording. There are no focal lateralizing or epileptiform abnormalities. Muscle artifact is seen in the posterior leads intermittently and while coughing. Activation: Photic activation does not reveal any photic driving. There are no photoparoxysmal discharges. Hyperventilation cannot be performed due to comatose condition. Deep pressure to the nail bed at 12:27 does not elicit a change in rhythm. Rhythm strip: Regular rate and rhythm. IMPRESSION: Abnormal electroencephalogram due to slowing. The patient does not appear to respond to stimuli during the electroencephalogram. There are no electrophysiologic seizures or other abnormality seen on the electroencephalogram. Clinical correlation advised.
--- NOTE | 2016-12-09 17:16 | NUR ---
CT Pt went to head/chest CT at 1400. consulted pt and pt family about possible surgery. New orders for ABD CT w/CO ordered. Contrast completed by [address] taken back to CT. Tube feeds stopped. EEG and head CT negative. Opening eye but not following commands. PTT=66.4, heparin gtt remains at 18units. Large loose stool, FMS placed. x3 Fungal BC taken and sent from left IJ, right femoral access and peripherally. 100cc dark john urine from tang. Mepilex placed on right forearm for opened blister. Family at bedside.
--- NOTE | 2016-12-09 18:00 | PROG NOTE ---
[address] [address] PROGRESS NOTE PATIENT: MIN ATKINSON : 1985 MR#: [id number] ADMIT: 12/04/2016 JOB ID: [id number] DATE: 12/09/2016 NEUROLOGY PROGRESS NOTE: REQUESTING PHYSICIAN: Prudencio Gordillo MD SUBJECTIVE: The patient is a 31-year-old gentleman with oxycodone overdose admitted on December 04, 2016. He has failed to resume any meaningful activity, however eye movement has been observed by staff. No purposeful movement has been appreciated. An EEG and a head CT were requested to help with prognosis. The EEG was read separately by myself and shows slowing but no focal abnormalities. The patient's head CT was reviewed with Radiology and thought to be essentially unchanged from the initial EEG. No convincing evidence for cerebral edema. The patient has been on dialysis for acute renal failure, which was completed today. He also has a DVT and chest CT revealed evidence of pneumonia and a small amount of pneumoperitoneum. The patient's temperature has continued to be elevated. The patient is being followed by Dr. Barahona and continues on antibiotics. PHYSICAL EXAMINATION: Blood pressure 138/78 with a heart rate of 95, temperature 38.3, 96% on mechanical ventilator with a respiratory rate set at 20. Head: Normocephalic, atraumatic. No evidence of carotid bruits. Lungs: Clear to auscultation. Cardiac: Regular rate and rhythm. Edema noted in all four extremities. Skin warm to the touch. NEUROLOGIC EXAMINATION: The patient's eyelids flutter to pain but his eyes do not open for this examiner. He does not respond to fingerbed pain, however Q-Tip in the nasopharynx does elicit shaking of the head. Cranial nerves: Pupils are equally reactive to light and accommodation. Extraocular movements (doll's eyes movement) is present. Facial asymmetry cannot be assessed given the patient's encephalopathic/coma-like state. Gag is present. Corneal response is present. Motor: No spontaneous movement. No abnormal movement noted. Facial twitch on the left was appreciated by staff. Deep tendon reflexes 1+ throughout, with the exception of patellars which are 2+. Plantar reflex flexor. No William's noted bilaterally. Tone: Flaccid throughout. Sensation: The patient does not respond to nailbed pain, however he does respond to Q-Tip as above. No withdrawal or movement seen. Gait and coordination cannot be examined. This is a limited examination due to patient's encephalopathy/coma-like state. REVIEW OF SYSTEMS: Cannot be obtained with the patient intubated and on a respirator. He does not appear to be in any distress, and as above. MEDICATIONS: Reviewed in the chart. IMPRESSION: The patient is a 31-year-old gentleman with OxyContin overdose resulting in cardiopulmonary arrest with prolonged time to intubation. The patient has failed to regain consciousness now on day four post event. He has other complications including possible infection, pneumoperitoneum with concern for bowel perforation, pneumonia, and DVT as well as renal failure. His head CT does not show convincing evidence of cerebral edema. The EEG is slow, without any focal findings. His neurologic examination shows intact brainstem function but no purposeful movement. It was encouraging to see him shake his head with the Q-tip in the nasopharynx. Given his other medical comorbidities at this time it is not clear what his cognitive function is. It is impossible to assess how much anoxic injury he has had. I recommend continued observation for improvement in function and meaningful movement. We will continue to follow with you. Please call if needed. Over half of this 30-minute evaluation was spent in reviewing results and implications with family members. RAAD
--- NOTE | 2016-12-09 18:20 | DRSVH ---
PROCEDURE: CT ABDOMEN AND PELVIS WITHOUT CONTRAST ([id number]) INDICATIONS: Pneumoperitoneum, elevated lipase TECHNIQUE: After the administration of oral contrast, 5 mm thick sections acquired from the diaphragms to the sy mphysis. 5 mm coronal and sagittal reformats were performed. For radiation dose reduction, the foll owing was used: automated exposure control, adjustment of mA and/or kV according to patient size. COMPARISON: None. FINDINGS: Image quality: Excellent. ABDOMEN: Lung bases: Consolidation noted in the dependent portion the lung bases bilaterally concerning for a spiration or pneumonia. Trace bilateral pleural fluid collections are noted. Presence of NG tube is noted. Heart size is normal. Solid organs: Liver and spleen are normal in size. Gallbladder is within normal limits. Pancreas i s normal in size. No inflammatory changes or free fluid is identified adjacent to the pancreas. No ad renal nodules. Both kidneys are normal in size, without hydronephrosis or nephrolithiasis. Peritoneum and bowel: Dilated proximal loops of small bowel are noted. Loops of small bowel are dil ated up to 3.9 cm in diameter. Changes in zone is in the proximal ileum. Small amount of free intra peritoneal air is noted in the anterior and superior midline of the abdomen adjacent to the liver. T race free fluid is noted in the pelvis anterior to the rectal vault. The appendix is normal. Nodes and vessels: No retroperitoneal or mesenteric adenopathy by size criteria. Aorta and inferior vena cava are normal in size. Miscellaneous: No ventral hernias. PELVIS: Genitourinary: Bladder and prostate a Randall catheter. Presence of rectal tube is noted. Miscellaneous: No inguinal hernias or adenopathy. Central venous line is noted in the right common f emoral vein which extends into the lower IVC. Bones: No suspicious bony lesions. No vertebral body compression fractures. IMPRESSION: 1. Bibasilar lung consolidation which could represent aspiration or pneumonia. Please correlate wit h clinical and laboratory data. 2. Trace bilateral pleural effusions. 3. No CT evidence of pancreatitis. 4. Dilated loops of proximal small bowel which could represent partial small bowel obstruction or il eus. 5. Minimal amount of pneumoperitoneum which in the absence of recent surgical intervention is suspic ious for bowel rupture. Please correlate with clinical history. 6. Findings discussed with Dr. Brandon Du on 12/09/2016 at 1817 hrs. Dictated by: Savannah Medina MD, PhD on 12/09/2016 at 18:05 Approved by: Savannah Medina MD, PhD on 12/09/2016 at 18:19
--- NOTE | 2016-12-09 18:30 | CONS ---
[address] [address] CONSULTATION REPORT PATIENT: MIN ATKINSON : 1985 MR#: [id number] ADMIT: 12/04/2016 JOB ID: [id number] DATE OF SERVICE: 12/09/2016 CHIEF COMPLAINT: A 31-year-old gentleman with possible pneumoperitoneum seen in consultation at the request of Prudencio Gordillo MD. HISTORY OF PRESENT ILLNESS: The patient is a 31-year-old who was brought to the [facility] Emergency Department on December 04, 2016 after a recent history of snorting OxyContin. He lost his airway and became unresponsive en route. He got cardiopulmonary resuscitation for 40 minutes before they were able to get an airway. Talking to the father, he noticed some blood in his house and he was thought to be bleeding from his nose leading to probable emesis or the blood seen in the airway while they were trying to intubate him. He was found to have acute renal insufficiency and he has been on dialysis. He had some fevers overnight and he has been on antibiotics for leukocytosis and bandemia at the time of presentation but it has since resolved. He has been getting tube feeds and he has been stooling. The ICU team got a CT chest today looking for sources of fever when the radiologist detected a small amount of pneumoperitoneum, prompting a surgical consult. OTHER MEDICAL PROBLEMS: 1. Chronic back pain. 2. Obesity. 3. Prescription drug abuse. PRIOR OPERATIONS: None. ALLERGIES: Iodine. MEDICATIONS: 1. Pantoprazole. 2. Zosyn. 3. IV heparin. 4. Fentanyl. 5. Lorazepam. 6. Insulin. 7. Norepinephrine. 8. Albuterol. 9. MiraLAX. 10. Senna. 11. Acetaminophen. SOCIAL HISTORY: The patient is currently intubated and sedated. Family, including parents, next to him. FAMILY HISTORY: No known history of cancer. INVESTIGATIONS: Labs from December 09, 2016: WBC 5.4, hemoglobin 11.2, platelet count 103. Creatinine 5.29, BUN 40, bilirubin 1.4, AST 55, ALT 71, lipase 899. Lactic acid 2.0 yesterday, down from 9.2 at the time of admission. IMAGING: Chest CT from December 09, 2016, showed a possible small amount of pneumoperitoneum right under the ribcage, moderate bilateral lower lobe pneumonia, small right parapneumonic effusion. PHYSICAL EXAMINATION: A 31-year-old male intubated and sedated. BMI 32.3. Temperature 38.5 this morning, pulse 73, blood pressure 126/77, saturating 92% on 35% FiO2. Respiratory: Bilateral air entry. Cardiovascular: Regular rate and rhythm. Gastrointestinal: NG tube and rectal tube in place. Abdomen: Soft. Neurologic: Intubated and sedated. Skin: Normal. ASSESSMENT AND PLAN: His clinical presentation I believe is inconsistent with a bowel perforation either as a cause of his illness or a secondary complication that he developed over his admission. We are going to get a CT abdomen and pelvis without IV contrast, but with enteric contrast, to better evaluate his abdominal process but I believe at this point it is safe to watch him clinically as things unfold. I would definitely continue holding tube feeds until we have a clear diagnosis or clinical progress giving us ideas as to what is going on in his abdomen.
--- NOTE | 2016-12-09 18:59 | PCM.PNMED ---
Subjective Date of Service Dec 09, 2016 Subjective The patient is a 31-year-old with a history of opiate addiction who was brought to the ED by EMS unresponsive. Admitted for cardiac arrest secondary to acute hypoxic and hypercapnic respiratory failure. Nursing reports gag reflex with deep suction. Patient had a temperature of 38.5. Patient seen and examined mechanically ventilated. Unresponsive and unable to answer questions. ROS unable to be completed secondary to patient's status. Exam Vital Signs Vital Sign - Last Date Time Temp Pulse Resp B/P Pulse Ox O2 Delivery O2 Flow Rate FiO2 12/09/16 16:30 Ventilator 12/09/16 16:30 37.8 73 20 128/72 93 35 Intake and Output 12/08/16 12/08/16 12/09/16 Cumulative From/Thru 15:00 23:00 07:00 12/04/16 15:53 - 12/09/16 05:45 Intake Total 979 ml 1202 ml 63078 ml Output Total 3290 ml 200 ml 09363 ml Balance -2311 ml 1002 ml 5927 ml Intake IV Total 979 ml 961 ml 98148 ml Tube Feeding 161 ml 161 ml Tube Irrigant 80 ml 80 ml Output Urine Total 240 ml 200 ml 3560 ml Gastric Drainage Total 50 ml 680 ml Ultrafiltrate 3000 ml 6000 ml # Bowel Movements 1 2 Exam Constitutional: Unresponsive. Mechanically Ventilated. In no acute distress. Head: Normocephalic and atraumatic eyes: Pupils weakly reactive to light and sluggish, do not fully constrict with light, but do accommodate. patient has positive dolls eyes. No scleral icterus. Heart: regular rate and rhythm. No murmurs. 1+ nonpitting peripheral edema. Lungs: Clear to auscultation, no wheeze, rales, or rhonchi. ABD: Soft, bowel sounds present throughout. No tympany Musculoskeletal: Appropriate muscle tone Skin: Warm, dry, no rash. neuro: Dolls eyes present, pupillary reflex sluggish, but present Psych: unable to assess secondary to patient's condition. IVs and Medications IV Fluids 1L Dextrose and NS given in the last 24 hours. Medications Reviewed: Medications were reviewed in detail Medications High Risk IV medications: Zosyn. Lab and Diagnostics Item Value Date Time Red Blood Count 3.90 mil/mm3 L 12/09/16 0600 Mean Corpuscular Volume 85.9 fL 8/9/17 0600 Mean Corpuscular Hemoglobin 28.7 pg 12/09/16599 Mean Corpuscular Hemoglobin Concent 33.4 % 12/09/16599 Red Cell Distribution Width 13.8 % 12/09/16599 Neutrophils (%) (Auto) 66.8 % 12/09/16599 Lymphocytes (%) (Auto) 15.9 % 12/09/16599 Monocytes (%) (Auto) 14.2 % H 12/09/16599 Eosinophils (%) (Auto) 1.8 % 12/09/16599 Basophils (%) (Auto) 0.4 % 12/09/16599 Estimat Glomerular Filtration Rate 14 mL/min 12/09/16599 Calcium Level 8.2 mg/dL L 12/09/16599 Total Bilirubin 1.4 mg/dL H 12/09/16599 Aspartate Amino Transf (AST/SGOT) 55 U/L H 12/09/16599 Alanine Aminotransferase (ALT/SGPT) 71 U/L H 12/09/16599 Alkaline Phosphatase 125 U/L 12/09/16599 Troponin T 0.043 ug/L *H 12/09/16599 Total Protein 5.7 g/dL L 12/09/16599 Albumin 2.5 g/dL L 12/09/16599 Lipase 899 U/L H 12/09/16599 Procalcitonin 118.80 ng/mL H 12/09/16599 Result Diagram: 12/09/1659912/09/16599 Microbiology MRSA swab negative Sputum Sample negative Urine culture negative Blood cultures pending X-Rays, CTs and MRIs PROCEDURE: CT BRAIN WITHOUT CONTRAST IMPRESSION: 1. No acute intracranial findings. 2. Fluid within the right maxillary sinus and sphenoid sinuses. This is likely related to intubation; however acute sinusitis can also have this appearance. Dictated by: Alicia Napoles M.D. on 12/04/2016 at 16:35 PROCEDURE: X-RAY CHEST ONE VIEW, PORTABLE IMPRESSION: Generalized pulmonary edema, moderately severe. Endotracheal and nasogastric tubes in normal position. Dictated by: Pavel Castle M.D. on 12/04/2016 at 15:33 PROCEDURE: X-RAY CHEST ONE VIEW, PORTABLE 1. Interval placement of central venous catheter. No pneumothorax. 2. Other support devices in place. 3. Moderate pulmonary edema Dictated by: Ayaan Johnson M.D. on 12/04/2016 at 16:25 PROCEDURE: X-RAY CHEST ONE VIEW, PORTABLE IMPRESSION: Endotracheal, nasogastric tube and central line as noted above, no pneumothorax. Pulmonary edema pattern greater on the right than the left but mildly improved from one day ago. Dictated by: Pavel Castle M.D. on 12/05/2016 at 8:01 PROCEDURE: X-RAY CHEST ONE VIEW, PORTABLE IMPRESSION: 1. Lines and tubes as above. 2. Perihilar and basilar opacities present consistent with developing pulmonary edema and/or diffuse bilateral pneumonia and/or atelectasis versus aspiration. Correlate clinically. Dictated by: Enoch Larson [facility] Interpreted: Pavel Castle MD on 12/07/2016 at 8: 52 PROCEDURE: CT BRAIN WITHOUT CONTRAST IMPRESSION: 1. No acute process. MRI may be helpful for further assessment. 2. Sinus disease. Dictated by: Slade Alvarez M.D. on 12/09/2016 at 14:36 PROCEDURE: CT CHEST WITHOUT CONTRAST IMPRESSION: 1. Small amount of pneumoperitoneum. Findings indicate bowel rupture, unless there is a history of recent abdominopelvic surgery. 2. Moderate bilateral lower lobe pneumonia. Small right parapneumonic effusion. Continued plain film surveillance is recommended to ensure resolution, and to exclude underlying or central malignancy. 3. Findings discussed with Dr. Sullivan on 12.09.16 at 1512 hrs. Dictated by: Slade Alvarze M.D. on 12/09/2016 at 15:06 PROCEDURE: CT ABDOMEN AND PELVIS WITHOUT CONTRAST IMPRESSION: 1. Bibasilar lung consolidation which could represent aspiration or pneumonia. Please correlate with clinical and laboratory data. 2. Trace bilateral pleural effusions. 3. No CT evidence of pancreatitis. 4. Dilated loops of proximal small bowel which could represent partial small bowel obstruction or ileus. 5. Minimal amount of pneumoperitoneum which in the absence of recent surgical intervention is suspicious for bowel rupture. Please correlate with clinical history. 6. Findings discussed with Dr. Brandon Castrejon on 12/09/2016 at 1817 hrs. Dictated by: Savannah Medina MD, PhD on 12/09/2016 at 18:05 12-lead ECG Sinus tachycardia, left axis deviation, prolonged QT Cardiac Echo Impressions LVEF 35-40% RV dilated and hypokinetic. Technically difficult study Assessment & Plan The patient is a 31-year-old with a history of opiate addiction who was brought to the ED by EMS unresponsive. Admitted for cardiac arrest secondary to acute hypoxic and hypercapnic respiratory failure. Acute hypoxic and hypocapnic respiratory failure. Present on admission. - Occurred following intentional inhalation of prescription opiates. Possibly secondary to acute noncardiogenic pulmonary edema associated with opiate inhalation. Patient was switched from PC-UMM to PRVC yesterday, ventilating well. - Continue mechanical ventilation with PRVC. Acute cardiac arrest. Present on admission. Stable. - Secondary to hypoxic respiratory failure. Pt became pulseless after becoming hypoxic. Likely not cardiogenic. -Patient has periodic muscular twitch that occurs on the right side of the face , but has self resolved. Patient has had a repeat EEG done today, awaiting official read. - Continue mechanical ventilation Hypoxic encephalopathy, acute. Present on admission. Ongoing. - Pt continues to be unresponsive. Altered mental status may also be secondary to opiate and alcohol use. Weaned off all sedation with no improvement in mental status. - Head CT showed no acute process. - EEG read pending Possible pneumoperitoneum -CT chest shows possible pneumoperitoneum. - Dr Castrejon (general surgery) consulted -CT of the abdomen with by mouth contrast to rule out pneumoperitoneum as suggested by Dr. castrejon: Results pending - Hold Tube feeds until r/o pneumoperitoneum. Fever, acute. Ongoing. - Pt continues to have fevers overnight. He originally presented with leukocytosis and bandemia, which have now normalized. Procalcitonin was elevated but has been declining steadily. Procalcitonin can be falsely elevated following cardiac arrest and CPR. Blood and urine cultures were negative. Sputum cultures showed 2 colonies of MSSA, uncertain if this is colonization or infection. Viral PCR negative. It is still doubtful that there is active infection, but will cover with antibiotics in the meantime. - Treating with Zosyn. - Repeat sputum culture - Fungal blood cultures - Chest CT repeated - Dr Barahona of Infectious Disease is following. We appreciate his input. Acute kidney injury. Present on admission. - Likely secondary to ischemic injury from cardiac arrest and hypotension. Possibly also secondary to rhabdomyolysis. Received dialysis yesterday, removed 2L of fluid. Cr now 5.29 (12/09) we will have another round of dialysis later today. - Avoid nephrotoxic meds, renal dosing of meds. - Nephrology following Right arm DVT, acute. Not present on admission. - Noted right arm edema, worse than left. R arm US showed DVT. - Continue Heparin gtt Elevated liver enzymes, acute. Present on admission. Improving. - LFTs elevated on admission. Secondary to hypoperfusion vs sepsis. There are some concerns for alcoholic hepatitis. - Patient placed on Thiamine drip - Continue to monitor LFTs. Elevated troponin, acute. Present on admission. Improving. - Troponin 0.724 on admission. Likely secondary to demand ischemia and myocardial injury during CPR/defib. Pt negative for amphetamines. Unlikely to have CAD. - Trend troponin Q6 until normalized. Trending down. Anion gap metabolic acidosis, acute. Present on admission. Resolved. - Secondary to lactic acidosis. History of opioid abuse. - Serum tox screen negative despite history of snorting opiates today. - Social work consult Maintenance: - Insulin gtt for blood glucose control. Patient is FULL CODE Disposition: Patient is mechanically ventilated and sedated, blood cultures are still pending and empiric antibiotics are currently being administered. As patient is requiring continued critical care and support, length of stay is undetermined at this time. GI Prophylaxis: Proton Pump Inhibitor VTE Prophylaxis: Sub-Q Heparin (Unfractionated) Resuscitation Status: CPR: Attempt Resuscitation GI Prophylaxis: Proton Pump Inhibitor VTE Prophylaxis: Sub-Q Heparin (Unfractionated) VTE Mechanical Devices: Intermittant Pneumatic CD Resuscitation Status: CPR: Attempt Resuscitation GI Prophylaxis: Proton Pump Inhibitor VTE Prophylaxis: Sub-Q Heparin (Unfractionated) VTE Mechanical Devices: Intermittant Pneumatic CD Resuscitation Status: CPR: Attempt Resuscitation Attending Statement The patient was seen and examined together with Dr. Beyer on 12/09/16 and I have added additional information to the note above. Dom Beyer DO Dec 09, 2016 18:59 Kari Sullivan DO Dec 10, 2016 17:51
[2016-12-09] MEDS ORDERED: Acetaminophen IV 1,000 MG in IV Premix 1 EACH IV ONE (19:45)
[2016-12-09] MEDS: Dextrose 5% 0.9% NaCl 1,000 ML IV SCH (20:09)
[2016-12-10] VITALS (11 sets, daily range): BP systolic 114–210; BP diastolic 61–101; PULSE 56–94; RESP 20–24; O2SAT 95–100
[2016-12-10 00:30] LABS: BASOPHILS % (AUTO) 0.2 % (0-3); EOSINOPHILS % (AUTO) 0.5 % (0-5); MONOCYTES % (AUTO) 14.3 % (4-12); Mean Corpuscular Hemoglobin 29.2 pg (27.0-35.0); Mean Corpuscular Volume 86.5 fL (81-100); NEUTROPHILS % (AUTO) 66.6 % (40-74); Platelet Count 121 bil/L (150-400)
[2016-12-10] MEDS: Chlorhexidine 0.12% 15 mL Oral Solution MT SCH ×5 (01:12→17:19)
[2016-12-10] MEDS: Heparin 25K Unit/500mL 0.45 NS 25,000 UNIT in IV Premix 1 EACH IV SCH ×2 (01:12→15:10)
[2016-12-10] MEDS: Insulin LISPRO 300 Unit/3 mL Inj SUBQ SCH ×3 (02:38→14:38)
[2016-12-10] MEDS ORDERED: Acetaminophen IV 1,000 MG in IV Premix 1 EACH IV ONE (03:30)
[2016-12-10 04:14] LABS: BASOPHILS % (AUTO) 0.5 % (0-3); EOSINOPHILS % (AUTO) 0.3 % (0-5); MONOCYTES % (AUTO) 14.1 % (4-12); Mean Corpuscular Hemoglobin 29.1 pg (27.0-35.0); Mean Corpuscular Volume 86.8 fL (81-100); NEUTROPHILS % (AUTO) 69.3 % (40-74); Platelet Count 117 bil/L (150-400)
[2016-12-10] MEDS ORDERED: Propofol 10,000 mCg/mL 100 mL Inj ONE (04:19)
--- NOTE | 2016-12-10 04:36 | ABG ---
DateTimeAnalyzed 04:27:42 -_ pH ____7.558 - 7.350 7.450 pCO2 ___29.1__ -mmHg 35.0 45.0 pO2 ___76.9__ -mmHg 69.0 116 HCO3- ___25.9__ -mmol/L 22.0 26.0 ABE ____3.6__ -mmol/L -2.0 2.0 tHb ___11.9__ -g/dL 12.0 18.0 O2Hb ___95.2__ -% COHb ____1.3__ -% 0.0 1.5 MetHb ____0.3__ -% 0.4 1.5 sO2 ___96.6__ -% FIO2 ___21.0__ -% PEEP ____6.0__ -cmH2O Set_RR 20 -b/min Vt __500.0__ -L Drawn By MD - Date/Time Notified____ 04:35:00 -_ Spontaneous_RR 26 -b/min Oxygen Device 1 VENTILATOR - Notified By MD - Notified Whom RN C.HYUN - K+ ____4.5__ -mmol/L 3.5 5.0 tO2 ___16.0__ -Vol% Harsh test N/A -
[2016-12-10 04:38] LABS: APPEARANCE,URINE CLEAR (CLEAR,HAZY); COLOR,URINE YELLOW (YELLOW); OCCULT BLOOD,URINE LARGE (NEGATIVE); PH,URINE 7.5 (5.0-8.0); UROBILINOGEN,URINE NORMAL (NORMAL)
[2016-12-10] MEDS: Propofol Inj 1,000,000 MCG in IV Premix 1 EACH IV SCH ×2 (04:43→19:19)
[2016-12-10] MEDS: Cisatracurium Inj 200,000 MCG in 0.9% Sodium Chloride-Pha MIX 100 ML IV SCH ×2 (04:46→15:17)
[2016-12-10 04:58] LABS: TROPONIN T 0.055 ug/L (0.0-0.011)
--- NOTE | 2016-12-10 08:06 | NUR ---
Temp Pt had extreme temp at start of shift of 39.2 axillary. Attempted to treat with IV tylenol., ice packs, cold bath. Not change in temp, and actually started worsening throughout night despite all non pharmacological interventions to lower temp. VSS otherwise including a HR in 60s-70s. Next step once temperature started increasing, was out targeted temperature management gaymar cooling machine. Pads placed on pt and temp set. Even on coolest setting, pt temp increased to MAX TEMP of 40.0. Severe shivering with cooling machine and ice packs. Orders to start nimbex and sedation to stop shivering. At this point an attempt to cool pt with chilled saline and chilled inhalation fluids. Once pt sedated and nimbexed, temp finally started to trend down around. especially with chilled saline. However, pt BP state increasing and limited urine output seen, so held off fluids after initial 1L bolus. MD at bedside constantly throughout shift for management and new orders. Pts parents called in to inform them of current status. Dialysis nurse called for initiation of dialysis r/t probable overload from IV fluids (per MD mention). Pt currently stable. Care ongoing
[2016-12-10] MEDS: Norepineph 8,000 mCg/250 mL NS 8,000 MCG in IV Premix 1 EACH IV SCH (08:20)
[2016-12-10] MEDS ORDERED: Micafungin Inj 150 MG in 0.9% Sodium Chloride 100 ML IV SCH (08:30)
[2016-12-10] MEDS ORDERED: levoFLOXacin Inj 750 MG in IV Premix 1 EACH IV SCH (08:30)
[2016-12-10] MEDS: Dextrose 5% 0.9% NaCl 1,000 ML IV SCH (08:40)
[2016-12-10] MEDS: LacriLube S.O.P. 3.5 Gm Ophthalmic Ointment BOTH_EYES SCH (09:24)
[2016-12-10] MEDS: Pantoprazole 4 mg/mL 10 mL Inj IVPUSH SCH ×2 (09:24→17:19)
--- NOTE | 2016-12-10 09:26 | PROG NOTE ---
[address] [address] PROGRESS NOTE PATIENT: MIN ATKINSON : 1985 MR#: [id number] ADMIT: 12/04/2016 JOB ID: [id number] DATE: 12/10/2016 PULMONARY CRITICAL CARE FOLLOW UP NOTE: PROBLEMS: 1. Anoxic encephalopathy. 2. Oxycodone overdose. 3. Alcohol abuse. 4. Pneumoperitoneum. 5. Bibasilar pulmonary infiltrates/aspiration pneumonia. 6. Right upper extremity DVT. OBJECTIVE: Temperature 39.5 with graph showing a rising temperature over the past 2-1/2 days. He was given iced saline last night with reinstitution of cooling measures with a marked hypertensive response. Currently blood pressure running 180/90s. Pulse mid 60s. Respiratory rate 24 with ventilator set at 24. O2 sat on FiO2 of 30%, PEEP of 5, is 100%. General appearance: Sedated on propofol. Also on paralytics. Pupils about 2 mm. Unable to perform remainder of neurologic examination due to the paralytic. Chest is clear anteriorly though examination suboptimal due to the cooling blankets. Heart: Regular rhythm. Heart tones normal. Abdomen is soft. Extremities: No pretibial edema. Right antecubital area shows signs of previous IV sites but not erythema nor fluctuance. Left IJ site is clean. Blood cultures both for bacteria and fungi are pending. Stool for C. difficile negative. Sputum pending. LABORATORY STUDIES: White cell count is 6400 with 69 polymorphonuclears, 13 lymphocytes, 14 monocytes. Hemoglobin stable at 12.1. Platelet count stable at 117,000. Sodium 143, potassium 4.5, chloride 102, CO2 is 23, BUN 41, and unchanged, creatinine 5.34 and unchanged with the patient receiving daily dialysis. Lactic acid 1.2. Calcium is 8.4 with an albumin of 3.1. Total bilirubin 1. AST 49 and slowly decreasing. ALT 65, mildly elevated and decreasing. Alkaline phos normal at 136, slightly increasing. Troponin T relatively unchanged at 0.055. Lipase 1814. Procalcitonin 82 and decreasing from a peak of 235 four days ago. PTT 58. CT of the abdomen and pelvis shows bibasilar lung consolidation. Trace bilateral pleural effusions. Pancreas is normal in contour. Mildly dilated loops of small bowel. Minimal amount of pneumoperitoneum. CT of the chest again shows the bilateral lower lobe consolidation with air bronchograms. CT of the brain shows ventricles of normal size. Cornejo white matter interface normal. Mucosal thickening of the sphenoid sinus bilaterally, maxillary sinus bilaterally and ethmoid sinus bilaterally. Serial chest x-rays have shown decreasing edema with persistent bilateral airspace opacities. Venous duplex study shows occlusive thrombus in the superficial vein right upper extremity as well cephalic vein and a nonocclusive thrombus involving the basilic and brachial veins on the right. Arterial blood gases on FiO2 of 30%, PEEP of 5, tidal volume of 500, rate of 20 shows a pO2 of 76, pCO2 of 29, pH of 7.55. EEG report shows diffuse slowing. No response to stimuli. No photic driving. No focal, lateralizing or epileptiform activity. ASSESSMENT: 1. Anoxic encephalopathy. Unable to do the neurologic examination due to the presence of cisatracurium. Will add fentanyl to his regimen to see if we can get him off the cisatracurium in order to better evaluate the patient in terms of abdominal findings as well as neurologic findings. So far, although no EEG or CT evidence of irrecoverable brain injury. 2. Fever. May be essential. Presumably could be a lung. Also have a clot in the right upper extremity. Will discuss lines with ID. May need to get the central lines out, place peripheral lines for a few days and then replace lines. 3. Renal failure. Daily ongoing dialysis. Taking off fluid. Do not think the hypertension is due to significant fluid overload but rather due to the cooling stimulus with IV cold saline and peripheral cooling. Dialysis ongoing now. Spoke with nephrology. Do not think we need to take off significant amounts of fluid. 4. Alkalemia. Significant alkalemia. Will back off on ventilation as some of the alkalosis is due to the ventilator. Some seems to be metabolic. Will adjust the settings to obtain a more physiologic pH currently with a pH of 7.55, may be interfering with a number of metabolic functions including cerebral perfusion. 5. Elevated lipase. Significance unclear at this point. Do not see significant swelling of the pancreas. May be dealing with pancreatitis in the face of renal failure but renal failure itself can cause elevated lipase. No evidence of cholecystitis, perf bowel which at this moment could cause problems. Spoke with surgery and so far no intervention warranted at this point. PLAN: 1. Proceed with dialysis. 2. Consider a change in antibiotics. 3. See if we can discontinue cisatracurium, starting fentanyl and then discontinuing cisatracurium. 4. Re-culture. 5. Consider antibiotic change. 6. Discuss line change. 7. Continue with dialysis. 8. Continue supportive care with regard to his BOILER OUT. TIME: Time spent so far in critical care 70 minutes.
[2016-12-10] MEDS ORDERED: Meropenem Inj 2,000 MG in 0.9% Sodium Chloride 100 ML IV SCH (09:30)
[2016-12-10] MEDS ORDERED: Meropenem Inj 1,000 MG in 0.9% Sodium Chloride 100 ML IV SCH (09:30)
[2016-12-10] MEDS ORDERED: fentaNYL 2,500 mCg/250 mL 2,500 MCG in IV Premix 1 EACH IV SCH (09:55)
--- NOTE | 2016-12-10 09:59 | ABG ---
DateTimeAnalyzed 09:53:00 -_ pH ____7.555 - 7.350 7.450 pCO2 ___29.3__ -mmHg 35.0 45.0 pO2 ___97.6__ -mmHg 69.0 116 HCO3- ___25.9__ -mmol/L 22.0 26.0 ABE ____4.4__ -mmol/L -2.0 2.0 tHb ___13.3__ -g/dL 12.0 18.0 O2Hb ___96.2__ -% COHb ____1.0__ -% 0.0 1.5 MetHb ____0.7__ -% 0.4 1.5 sO2 ___97.9__ -% 25.0 FIO2 ___35.0__ -% PEEP ____6.0__ -cmH2O Set_RR ___20.0__ -b/min Vt __500.0__ -L Drawn By as - Date/Time Notified____ 09:58:00 -_ Spontaneous_RR ___20.0__ -b/min Oxygen Device 1 VENTILATOR - Notified By ams - Notified Whom dr kendregan - B 757 -mmHg tO2 ___18.1__ -Vol% Harsh test _Positive -
--- NOTE | 2016-12-10 10:04 | DRSVH ---
PROCEDURE: X-RAY ABDOMEN WITH ERECT AND/OR DECUBITUS VIEWS ([id number]) INDICATIONS: ? Pneumoperitoneum TECHNIQUE: 2 views of the abdomen were acquired. COMPARISON: [facility], CT, CT CHEST WO CON, 12/09/2016, 14:27. [facility], CT, CT ABD PELVIS WO CON, 12/09/2016, 17:43. FINDINGS: Surgical changes and devices: Nasogastric tube present tip traversing the GE junction. Left lateral decubitus plain film demonstrates subtle lucency along the superior lateral aspect of th e abdomen at the liver margin suspicious for trace pneumoperitoneum. Left basilar airspace opacity redemonstrated. Bones: No suspicious bony abnormalities. IMPRESSION: Finding of a strace right upper quadrant pneumoperitoneum in view of CT findings.. Airspace opacity is seen involving the left lung base suspicious for pneumonia. Dictated by: Enoch Larson RRA Interpreted: Kyaw Mcclain MD on 12/10/2016 at 9:59 Transcribed by: CHOLO on 12/10/2016 at 10:03 Approved by: Kyaw Mcclain M.D. on 12/10/2016 at 11:04
--- NOTE | 2016-12-10 10:06 | PROG NOTE ---
[address] [address] PROGRESS NOTE PATIENT: MIN ATKINSON : 1985 MR#: [id number] ADMIT: 12/04/2016 JOB ID: [id number] DATE: 12/10/2016 INFECTIOUS DISEASE FOLLOW UP NOTE: REASON FOR FOLLOW UP: High fevers in a patient status post cardiopulmonary arrest. INTERVAL HISTORY: Recall that yesterday the patient was starting to develop increasing though still low level fevers. A variety of possibilities were entertained including aspiration pneumonia, which we know he has, as well as a documented DVT in his right upper extremity. We were also concerned about the possibility of pancreatitis given the lipase was grossly elevated. Other concerns yesterday included the possibility of development of central fever as well as the possibility of line infections arising from either his left neck, triple lumen or right groin line. Multiple cultures were ordered yesterday and we stuck with the Zosyn he has been receiving as empiric therapy for aspiration pneumonia during his long CPR event. Overnight, the patient has developed increasingly high fevers as well as very high blood pressures. His temperatures at one point reached 40 degrees, and he required active cooling to attempt to mitigate this very high fever. In association with these fevers, he was moderately tachycardic. This case was reviewed at the bedside with the nursing team and during ICU rounds with the entire ICU team including Critical Care and Renal. I also had a chance to discuss this case with Neurology in the past 24 hours. There is no additional history of the preceding events before this cardiopulmonary arrest other than the patient had snorted a crushed tablet believed to be a prescription narcotic and following that had developed respiratory difficulty with bleeding from the upper airway which resulted in respiratory arrest and a prolonged code event. As previously noted, we have discussed this case with the general duty nurse who is a friend and mentor to the patient who saw him within 36 hours or so of these events and reported that the patient was quite healthy and without symptoms of ongoing infection. Also recall that his initial temperature and white blood count in the ED were normal in fact and that he had been walking and talking en route to the ambulance. PHYSICAL EXAMINATION: Today, reveals a gentleman who is febrile and currently paralyzed. Temperature 37.8. Cooling devices have been applied, however. Pulse in the 70s, down from the 90s earlier when he had higher fevers. Respiratory rate is ventilator dependent obviously, 35%, 6 of PEEP and he is saturating well. Blood pressures have been as high as 200 systolic but are now 144/88. Examination of the eyes reveals reactive pupils. No other significant change. Nose normal. Oral endotracheal tube, oral gastric tube in good position. The left IJ triple lumen looks benign but the nurses tell me one of the lumens is no longer functional. The patient has swelling of the right upper extremity consistent with the superficial clots noted on ultrasound. Cardiac tones: Regular rate and rhythm. No significant murmurs noted. Lungs with crackles at the bases bilaterally. Abdomen: Soft. Of course, we cannot assess whether or not it is tender based on his ongoing paralysis and mental status. The patient is essentially flaccid, of course, as he is paralyzed but earlier while he was not paralyzed, he was opening his eyes but not making any other movements. Also note the patient has a right groin line for dialysis. This line appears to be benign. LABORATORIES: Include white count down to 6400, basically normal differential on that, 69% segs. Platelet count stable at 117. Procalcitonin which had started off at an astronomical 235 on December 07 has declined to 82. This is difficult to interpret in view of his long CPR as well as his renal failure. His creatinine is 5.34 but, of course, he is still being dialyzed on a daily basis. ALT is 65. AST 49. Lipase is doubled from 899 yesterday to 1814 today. Urinalysis done overnight without white cells. Serologic studies which are pending include cryptococcal antigen and Hanta virus serologies. RPR negative. Hepatitis B negative. HIV negative. Hepatitis C negative. Micro includes two colonies of Staph MSSA which grew from the initial sputum on the . Otherwise the initial blood cultures as well as urine cultures on the were negative. On December 09, yesterday, we did blood fungal cultures from both his triple lumen in the neck as well as his groin line and his skin and all of these cultures are currently pending. C difficile was done earlier this morning, was negative. Nasopharyngeal PCR studies were done and these were negative for respiratory viruses and other organisms tested. IMAGING: Yesterday a wide variety of imaging studies were done. The patient did have CT of the brain which shows severe bilateral sphenoid mucosal thickening as well as some bilateral maxillary sinus thickening and some ethmoid thickening. The brain itself appeared normal. Chest CT was done yesterday. That showed pneumoperitoneum which has been discussed extensively with surgery. Also noted was bilateral lower lobe infiltrates. I personally reviewed this chest x-ray and agree with the reading of bilateral infiltrates, most consistent with pneumonia and in this case likely aspiration pneumonia obviously. The dedicated abdominal pelvic CT showed the pulmonary infiltrates, small pleural effusions and a normal-appearing pancreas. There were dilated loops of proximal small bowel noted and a minimal amount of pneumoperitoneum. IMPRESSION: This is an incredibly complicated case of a gentleman who was apparently in a reasonable state of health right up until the events of December 04 when following the report snorting of a crushed prescription narcotic pill, the patient developed respiratory difficulty and some unexplained upper airway bleeding. This resulted in a very difficult transport to the hospital where he had a respiratory arrest and a difficult intubation as well as a cardiac arrest requiring prolonged CPR here in the hospital before could be stabilized. His initial temperature as well as white blood count were not concerning for infection nor is the history prior to admission but shortly after admission, he developed a profound left shift in his white count was found to have a very high procalcitonin. Whether these events were due to developing aspiration pneumonia or some other infectious process or were part and parcel of the trauma he had suffered with the prolonged CPR and prolonged intestinal ischemia and other issues which are known to falsely elevate the procalcitonin remains uncertain. During his first three or so days here in the hospital, he was afebrile even as his white count and differential white blood count normalized. At that point, we were giving Zosyn as empiric treatment in this patient who had been cooled for what was certainly an aspiration event. About 48 hours ago, he started to mount low fevers which we thought were likely secondary to either his aspiration pneumonia, DVT or perhaps pancreatitis based on his elevated lipase. This led to yesterday's plan which was to basically CT his entire body and do additional fever workup. The surprising finding coming out of the CTs was a small amount of pneumoperitoneum which remains unexplained. I have reviewed an article and placed it on the chart regarding the infrequency of pneumoperitoneum after CPR and its implications. Overnight, the patient has had increasing fevers but without hypotension. His white blood count continues to be normal and his procalcitonin, which has been very high throughout this hospital stay, is improving. We know that there are multiple sources of fever which we have documented to date. These include the finding of sinus changes on this brain CT done yesterday as well as the elevated lipase which may indicate pancreatitis or bowel ischemia. In addition we have documented blood clot and superficial phlebitis in multiple areas of his right upper extremity which has led to, of course, the swelling there. He also clearly had some degree of aspiration, bilateral infiltrates which we have up to this point treated with Zosyn. Potential sources of infection we have not yet addressed would include a bacterial superinfection of the pulmonary tree for which we have obtained sputum Gram stain and culture. It is also possible that he has developed bacteremia or fungemia here in the hospital likely related to either the IJ in the left neck or his right femoral dialysis access catheter. The finding of pneumoperitoneum raises the question of whether a small bowel perforation may have occurred during the events of December 04 and that may be part of his ongoing fevers. General surgery is involved in evaluating this and some abdominal flat plates have just been ordered and done as I am dictating this. RECOMMENDATIONS: 1. I have discussed this case with the renal attending and he has agreed to pull the dialysis catheter and culture the tip following Wednesday's dialysis which, of course, is tomorrow. The patient will be dialyzed today and tomorrow using that groin line unless there is an absolute contraindication to pull it. 2. I have discussed this case with Dr. Gordillo of the ICU team. We are going to look for another site in his left arm for some peripheral IVs and try and pull the central line in the neck and again culture the tip of that after we do. 3. We await the multiple pending fungal blood cultures. 4. We await the sputum Gram stain and culture which was just done. 5. We await the General Surgery additional input following today's abdominal films. 6. We await neurology's additional input regarding the possibility that these fevers are central but, of course, that is more or less of a diagnosis of exclusion in a situation such as this. 7. We are going to switch his antibiotics empirically to provide broader coverage as I no longer think we can necessarily ascribe these new higher fevers to DVT and other noninfectious causes. We are going to stop the Zosyn and instead substitute a combination of meropenem, levofloxacin and micafungin. 8. I still see no reason to cover for MRSA as our original sputum had only two colonies of Staph aureus and they were MSSA. His nasal MRSA PCR was negative. 9. This case discussed extensively with the entire ICU team and the patient's family was present during morning rounds. RAAD
--- NOTE | 2016-12-10 10:28 | PCM.PNNEPH ---
Subjective Date of Service Dec 10, 2016 Subjective Events of the last 24 hours have been reviewed and I have thoroughly discussed the case with Dr. Reynolds, Dr. Barahona, and Dr. Du. His lipase continues to elevate We will overload from 1800 today. There is also some free air in his diaphragm however on his CT is otherwise unremarkable. He is also beginning to spike a temperature and is also hypertensive and bradycardic. In light of his history of significant anoxic brain injury I would be about a Jose's reflex from increased intracranial pressure. He was given acetaminophen along with cold saline and controlled platelets 2 attempts to lower his temperature. Exam Vital Signs Vital Sign - Last Date Time Temp Pulse Resp B/P Pulse Ox O2 Delivery O2 Flow Rate FiO2 12/10/16 04:35 39.5 66 24 144/88 100 Mechanical Ventilator 30 Intake and Output 12/09/16 12/09/16 12/10/16 Cumulative From/Thru 15:00 23:00 07:00 12/04/16 15:53 - 12/09/16 18:46 Intake Total 1472 ml 92797 ml Output Total 4000 ml 100 ml 10384 ml Balance -4000 ml 1372 ml 3299 ml Intake IV Total 1472 ml 45571 ml Tube Feeding 161 ml Tube Irrigant 80 ml Output Urine Total 100 ml 3660 ml Gastric Drainage Total 680 ml Ultrafiltrate 4000 ml 43908 ml # Bowel Movements 2 Exam Neck is supple without adenopathy, thyromegaly, or jugular venous distention. Lungs are clear to auscultation. Heart is regular and rhythmical somewhat bradycardic. Abdomen with skin shows no bowel sounds in the abdomen is soft. There are no masses palpated. Extremities continues to show some mild generalized edema however no rashes or cyanosis was noted. Lab and Diagnostics Result Diagram: 12/10/16 0400 12/10/16 0400 Microbiology MRSA swab negative Sputum Sample negative Urine culture negative Blood cultures pending X-Rays, CTs and MRIs PROCEDURE: CT BRAIN WITHOUT CONTRAST IMPRESSION: 1. No acute intracranial findings. 2. Fluid within the right maxillary sinus and sphenoid sinuses. This is likely related to intubation; however acute sinusitis can also have this appearance. Dictated by: Alicia Napoles M.D. on 12/04/2016 at 16:35 PROCEDURE: X-RAY CHEST ONE VIEW, PORTABLE IMPRESSION: Generalized pulmonary edema, moderately severe. Endotracheal and nasogastric tubes in normal position. Dictated by: Pavel Castle M.D. on 12/04/2016 at 15:33 PROCEDURE: X-RAY CHEST ONE VIEW, PORTABLE 1. Interval placement of central venous catheter. No pneumothorax. 2. Other support devices in place. 3. Moderate pulmonary edema Dictated by: Ayaan Johnson M.D. on 12/04/2016 at 16:25 PROCEDURE: X-RAY CHEST ONE VIEW, PORTABLE IMPRESSION: Endotracheal, nasogastric tube and central line as noted above, no pneumothorax. Pulmonary edema pattern greater on the right than the left but mildly improved from one day ago. Dictated by: Pavel Castle M.D. on 12/05/2016 at 8:01 PROCEDURE: X-RAY CHEST ONE VIEW, PORTABLE IMPRESSION: 1. Lines and tubes as above. 2. Perihilar and basilar opacities present consistent with developing pulmonary edema and/or diffuse bilateral pneumonia and/or atelectasis versus aspiration. Correlate clinically. Dictated by: Enoch Larson RRA Interpreted: Pavel Castle MD on 12/07/2016 at 8: 52 PROCEDURE: CT BRAIN WITHOUT CONTRAST IMPRESSION: 1. No acute process. MRI may be helpful for further assessment. 2. Sinus disease. Dictated by: Slade Alvarez M.D. on 12/09/2016 at 14:36 PROCEDURE: CT CHEST WITHOUT CONTRAST IMPRESSION: 1. Small amount of pneumoperitoneum. Findings indicate bowel rupture, unless there is a history of recent abdominopelvic surgery. 2. Moderate bilateral lower lobe pneumonia. Small right parapneumonic effusion. Continued plain film surveillance is recommended to ensure resolution, and to exclude underlying or central malignancy. 3. Findings discussed with Dr. Sullivan on 12.09.16 at 1512 hrs. Dictated by: Slade Alvarez M.D. on 12/09/2016 at 15:06 PROCEDURE: CT ABDOMEN AND PELVIS WITHOUT CONTRAST IMPRESSION: 1. Bibasilar lung consolidation which could represent aspiration or pneumonia. Please correlate with clinical and laboratory data. 2. Trace bilateral pleural effusions. 3. No CT evidence of pancreatitis. 4. Dilated loops of proximal small bowel which could represent partial small bowel obstruction or ileus. 5. Minimal amount of pneumoperitoneum which in the absence of recent surgical intervention is suspicious for bowel rupture. Please correlate with clinical history. 6. Findings discussed with Dr. Brandon Du on 12/09/2016 at 1817 hrs. Dictated by: Savannah Medina MD, PhD on 12/09/2016 at 18:05 12-lead ECG Sinus tachycardia, left axis deviation, prolonged QT Cardiac Echo Impressions LVEF 35-40% RV dilated and hypokinetic. Technically difficult study Plan Impression Impression #1 acute tubular necrosis secondary to severe hypotension from cardiopulmonary arrest which is unresolved. #2 hypertensive urgency #3 Gaines' s reflex #4 fever Recommendations #1 the patient is to be dialyzed today for 4 hours on a standard dialyzer, 3 potassium bath, no additional heparin is the patient's on a heparin drip, blood flow is 600 dialysate flow, 36 dialysate bath and will attempt to take 2 L of fluid off. #2 is 4 is his temperature if the primary team wish to give him IV Toradol with doses of either 15 or 30 mg every 8 hours as needed for temperature afebrile that this would not harm his kidneys any worsened narrow harmed. #3 as far as his blood pressure I would recommend a nicardipine drip to start at 5 mg an hour and keep his systolic blood pressure between 140 and 150. Overall I feel his prognosis is quite poor. I have also had a discussion and up-to-date with the family today. Phuc Reyes DO Dec 10, 2016 10:28
--- NOTE | 2016-12-10 10:56 | NUR ---
NUTRITION FOLLOW UP: ASSESS: 31 YO male admitted for cardiac arrest, LEANDRO, possible GI bleed, requiring intubation. Pt with opiate addiction per notes. Hypothermia protocol was initiated on 12/04-rewarmed. Pt had CT of abdomen which showed dilated loops of proximal small bowel noted and a minimal amount of pneumoperitoneum. TF has been stopped and general surgery was consulted. At this time, Surgery does not believe he has bowel perforation. TF to continue to be off for now. Pt had high fevers overnight and required nimbex and propofol to be started. Pt continues to require dialysis. PMHx: Lumbago, substance abuse. LABS: Reviewed. Bun 41, manager sound 5.34, glu 118, ca 8.4, ALT 65, alb 3.1, lipase 1814 MEDS: Reviewed. propofol, nimbex, fentanyl GI: FMS in place CURRENT WT: 99.3 kg. BMI 32.3 kg/m2, Admit wt 100 kg. IBW: 72.73 kg. DIET: NPO NUTRITION SUPPORT: (OFF) Nepro @ 30ml/hr providing 1188kcal and 53g pro (~55% estimated needs) ESTIMATED NEEDS: VENT/BMI/DIALYSIS Calories: 7589-9263 kcal/day (20-22 kcals/kg BW) Protein: 110-130 g/day (1.5-1.8 g/kg IBW) Fluids: 0305-1011 ML fluids (22-25 ml/kg IBW) NUTRITION DIAGNOSIS: 1.) Inadequate oral intake related to decreased ability to consume sufficient energy as evidenced by current vent and NPO status.---PERSISTS. NUTRITION INTERVENTION: 1.) Recommend re-start TF when medically appropriate. Recommend start Nepro TF @ 10ml and advance by 10 ml q 6 hr to goal rate of 55 ml/hr. At goal TF will provide 2178 kcal and 98 g protein; meeting 100% calorie, 89% protein needs. 2.) Recommend addition of Prosource to better meet protein needs once TF at goal rate 3.) Adjust goal rate based on daily propofol MONITOR/EVALUATE: NPO/Vent status, TF re-start?, labs, wt, labs, GI/nutrition status. Follow per high nutrition risk guidelines.
[2016-12-10] MEDS: NiCARdipine Inj 25 MG in Dextrose 5% 240 ML IV SCH ×2 (11:00→14:50)
--- NOTE | 2016-12-10 13:13 | NUR ---
Dialysis note: 4 hr tx Net UF 2000 Right femoral cath, QB 400 dressg CDI Pt sedated: propofol, and then fentanyl Pt had intermittent episodes of tremors Site dwelled with Heparin 1000 and secured with caps Pt in stable condition at end of tx Please see DTR for complete record of VS
--- NOTE | 2016-12-10 13:58 | PROG NOTE ---
[address] [address] PROGRESS NOTE PATIENT: MIN ATKINSON : 1985 MR#: [id number] ADMIT: 12/04/2016 JOB ID: [id number] DATE: 12/10/2016 REQUESTING PHYSICIAN: Prudencio Gordillo MD REASON FOR CONSULTATION: Hypoxic injury. SUBJECTIVE: The patient is a 31-year-old gentleman with likely hypoxic injury who has failed to regain consciousness following oxycodone overdose on December 04, 2016. His hospitalization has been complicated by the initial cardiopulmonary arrest and prolonged cardiopulmonary resuscitation before hemodynamic stability was maintained. His hospitalization has been complicated by renal failure and low-grade fevers. He has a noted DVT in his right upper extremity. Possible pancreatitis, possible pneumothorax or bowel perforation and possible aspiration pneumonia. He has continued to have rigors and shivering which became more pronounced last night after spiking a temperature. He was briefly on paralytics which have subsequently been discontinued. The family members are deeply distressed by the patient's tremulousness. Previous EEGs have not shown any seizure activity. Neurology was called with the family's concern regarding these symptoms and the patient's failure to resume premorbid condition. Head CT done yesterday did not show any convincing areas of anoxic injury and/or edema and EEG showed slowing without any epileptiform abnormalities. The patient's family raised concerns with Dr. Gordillo that the patient may need to be transferred for a higher level of care. Their concern was primarily related to his cognitive functioning and whether a neurologist would be available to monitor. I did reassure them that Dr. Resendiz would be available to follow the patient. They were also concerned about the availability of other staffing at all times. I spoke with Dr. Gordillo separately and then with the patient's family to share my recommendations and concerns. PAST MEDICAL HISTORY, SOCIAL HISTORY, FAMILY HISTORY, DRUG ALLERGIES, AND MEDICATIONS: Reviewed. REVIEW OF SYSTEMS: Not obtainable due to patient being intubated and on a respirator. MEDICATIONS: Fentanyl, levofloxacin, micafungin, , propofol. OBJECTIVE: Temperature 39.5, blood pressure 144/88, pulse 66, pulse oximetry 100% on a respirator with a respiratory rate of 24. Head: Normocephalic, atraumatic. No evidence of carotid bruits. Lungs with crackles at the bases bilaterally. Abdomen is soft. Edema noted in the extremities. NEUROLOGIC EXAMINATION: The patient does not respond to pain or temperature and is also in a chemically induced coma. This is a limited neurologic examination. Tremulousness noted on the right side. High frequency tremor involving the entire arm intermittently. Cranial nerves: Pupils are reactive to light and accommodation. Extraocular movements intact. Further cranial nerve exam cannot be performed. Deep tendon reflexes 1+ throughout with plantar reflex flexor. Tone is flaccid. Sensation: No response to pain. Further examination is limited due to comatose state. LABORATORY AND IMAGING STUDIES: Please see chart for detail. ASSESSMENT AND RECOMMENDATIONS: The patient is a 31-year-old gentleman with oxycodone-induced cardiopulmonary arrest and prolonged time to intubation and resuming cardiovascular stability. He has failed to resume premorbid condition or wake up entirely. This suggests that he has sustained some hypoxic injury. EEG showed only slowing even when patient had tremulousness which was deemed to be due to shivering. The patient has not shown any change in CT to suggest severe cerebral edema. The patient has numerous other medical problems including possible pneumo peritoneum, fevers of unexplained etiology, renal failure on dialysis and the family expresses concerns about his neuro status and the tremulousness. There is no EEG available today. The patient should be treated with propofol for tremor as Dr. Gordillo has suggested. It is unlikely to represent seizure but I cannot be sure. Given the family's concern and his need for multiple specialties to be involved with his care, I believe he would benefit from being transferred to a tertiary care center for management of his care. Dr. Gordillo is in agreement. I explained this to the patient's mother and father who are at the bedside. Will sign off for now. Please call if needed. RAAD
[2016-12-10] MEDS: Thiamine Inj 200 MG in Dextrose 5% 50 ML IV SCH (15:21)
--- NOTE | 2016-12-10 15:41 | PCM.DC.MED ---
Discharge Summary Date of Service Dec 10, 2016 Dates of Hospitalization Date of Hospital Admission Dec 04, 2016 at 15:25 Date of Discharge: Dec 10, 2016 Providers: Admitting Physician: Kari Sullivan DO Primary Care Physician: Issac Rankin MD Attending Physician: Kari Sullivan DO Diagnosis at Time of Discharge Diagnosis at Time of Discharge Acute hypoxic and hypocapnic respiratory failure Acute cardiac arrest Hypoxic encephalopathy Fever Acute kidney injury Right arm SVT Possible pneumoperitoneum Elevated liver enzymes Elevated troponin Anion gap metabolic acidosis History of opioid abuse. Consultations Dr. Reyes - Nephrology Dr. Barahona - Infectious Disease Dr. Gordillo - Pulmonary/Critical Care Dr. Du - Surgery Dr. Preciado - Neurology Procedures XRay, CTs & MRIs PROCEDURE: CT BRAIN WITHOUT CONTRAST IMPRESSION: 1. No acute intracranial findings. 2. Fluid within the right maxillary sinus and sphenoid sinuses. This is likely related to intubation; however acute sinusitis can also have this appearance. Dictated by: Alicia Napoles M.D. on 12/04/2016 at 16:35 PROCEDURE: X-RAY CHEST ONE VIEW, PORTABLE IMPRESSION: Generalized pulmonary edema, moderately severe. Endotracheal and nasogastric tubes in normal position. Dictated by: Pavel Castle M.D. on 12/04/2016 at 15:33 PROCEDURE: X-RAY CHEST ONE VIEW, PORTABLE 1. Interval placement of central venous catheter. No pneumothorax. 2. Other support devices in place. 3. Moderate pulmonary edema Dictated by: Ayaan Johnson M.D. on 12/04/2016 at 16:25 PROCEDURE: X-RAY CHEST ONE VIEW, PORTABLE IMPRESSION: Endotracheal, nasogastric tube and central line as noted above, no pneumothorax. Pulmonary edema pattern greater on the right than the left but mildly improved from one day ago. Dictated by: Pavel Castle M.D. on 12/05/2016 at 8:01 PROCEDURE: X-RAY CHEST ONE VIEW, PORTABLE IMPRESSION: 1. Lines and tubes as above. 2. Perihilar and basilar opacities present consistent with developing pulmonary edema and/or diffuse bilateral pneumonia and/or atelectasis versus aspiration. Correlate clinically. Dictated by: Enoch Larson RRA Interpreted: Pavel Castle MD on 12/07/2016 at 8: 52 PROCEDURE: CT BRAIN WITHOUT CONTRAST IMPRESSION: 1. No acute process. MRI may be helpful for further assessment. 2. Sinus disease. Dictated by: Slade Alvarez M.D. on 12/09/2016 at 14:36 PROCEDURE: CT CHEST WITHOUT CONTRAST IMPRESSION: 1. Small amount of pneumoperitoneum. Findings indicate bowel rupture, unless there is a history of recent abdominopelvic surgery. 2. Moderate bilateral lower lobe pneumonia. Small right parapneumonic effusion. Continued plain film surveillance is recommended to ensure resolution, and to exclude underlying or central malignancy. 3. Findings discussed with Dr. Sullivan on 12.09.16 at 1512 hrs. Dictated by: Slade Alvarez M.D. on 12/09/2016 at 15:06 PROCEDURE: CT ABDOMEN AND PELVIS WITHOUT CONTRAST IMPRESSION: 1. Bibasilar lung consolidation which could represent aspiration or pneumonia. Please correlate with clinical and laboratory data. 2. Trace bilateral pleural effusions. 3. No CT evidence of pancreatitis. 4. Dilated loops of proximal small bowel which could represent partial small bowel obstruction or ileus. 5. Minimal amount of pneumoperitoneum which in the absence of recent surgical intervention is suspicious for bowel rupture. Please correlate with clinical history. 6. Findings discussed with Dr. Brandon Du on 12/09/2016 at 1817 hrs. Dictated by: Savannah Medina MD, PhD on 12/09/2016 at 18:05 PROCEDURE: X-RAY ABDOMEN WITH ERECT AND/OR DECUBITUS VIEWS IMPRESSION: Finding of a strace right upper quadrant pneumoperitoneum in view of CT findings.. Airspace opacity is seen involving the left lung base suspicious for pneumonia. Dictated by: Enoch Larson RRA Interpreted: Kyaw Mcclain MD on 12/10/2016 at 9:59 ECG 12 Lead Sinus tachycardia, left axis deviation, prolonged QT Cardiac Echo Impression LVEF 35-40% RV dilated and hypokinetic. Technically difficult study Other Diagnostics EEG IMPRESSION: Abnormal electroencephalogram due to low amplitude and slow activity. No ongoing seizure activity or epileptiform abnormalities seen throughout the recording. Clinical correlation advised. Sepideh Preciado MD 12/07/16 3771 EEG IMPRESSION: Abnormal electroencephalogram due to slowing. The patient does not appear to respond to stimuli during the electroencephalogram. There are no electrophysiologic seizures or other abnormality seen on the electroencephalogram. Clinical correlation advised. Sepideh Preciado MD 12/09/16 6537 Brief History The patient is a 31-year-old male with a history of opiate addiction who was brought to the ED by EMS unresponsive. He has a long history of opiate abuse and has completed inpatient detox/rehabilitation on at least one prior occasion this year and had been drug free until November 03 when he relapsed and began using again. The patient had been seen on December 01 by his PCP (Dr. Leonor Camargo), and appeared to be in good health. The patient's father had gone to the patient 's home after the patient could not be reached by phone and found blood in the patient's bed and in a toilet but does not specifically know where it came from. The patient was found altered and in some respiratory distress, complaining of sleepiness and shortness of breath. The patient reported that he had "snorted" a ground up 30 mg Oxycontin tablet at 7 AM (12/04), about 7 hours prior. EMS was contacted and upon arrival, he was allowed to walk independently to the ambulance; however, shortly after reaching it, he reportedly became more somnolent and then ultimately apneic. He became hypoxemic and at some point developed a wide complex tachycardia which deteriorated to ventricular fibrillation. Within minutes he had arrived in the ambulance bay outside the ED and he was intubated after significant difficulty securing his airway. There was a large amount of blood found in the airway with evidence of recent epistaxis. During the attempts at intubation, he became pulseless and chest compressions were initiated and he received about 40 minutes of CPR, along with shocks and epinephrine before ROSC was achieved. He continued to oxygenate poorly and O2 sats remained in mid 80s. The saddle stitch operator button sawyer (Dr. Mccormick) was contacted and the patient was paralyzed with vecuronium, and his ventilator was changed from PRVC to pressure control inverse ratio and his PEEP was increased to 18, at which point his O2 sat increased to 100%. Patient was transferred to CCU for further care. Chest Xray and Brain CT performed and reported as above. Patient started on broad spectrum antibiotics under the care of Infectious Disease. Hospital Course The patient is a 31-year-old with a history of opiate addiction who was brought to the ED by EMS unresponsive. Admitted for cardiac arrest secondary to acute hypoxic and hypercapnic respiratory failure. Hypothermia protocol was initiated at 1930 on 12/04 with a goal temperature of 36C for a 24 hour period. Echocardiogram performed on 12/05 showing diffuse hypokinesis of the left ventricle with an EF of 35-40%. Rewarming began on 12/05 @1730. Lactic acid and troponins were trended every six hours. On the night of 12/06 to 12/07, after the completion of the rewarming protocol, patient began to experience high frequency, low amplitude movement which was deemed to be shivering. Shivering was limited to shoulder and trunk. Patient weaned off of Nimbex and Propofol for preparation for EEG study Patient tolerated well. EEG was performed on 12/07, which showed slow activity with no signs of seizure like neurological activity. Nephrology had also been following care and ordered patient to receive first session of ultrafiltration on 12/07. Patient began spiking fevers of 38.5 during the night of 12/07 to 12/08 which normalized with IV Tylenol. Infectious Disease adjusting antibiotic regimen, but maintaining treatment with Zosyn as micro studies still not showing any clear source of infection, and believe that this event is unlikely related to an infectious source given the patient's abrupt change in status along with the recent drug use and episode of epistaxis.. Patient was weaned off of Fentanyl and removed from drip at 0900 on 12/08. Repeat neuro checks showed no pupillary reaction or gag reflex for the first nine hours after stopping the Fentanyl. Patient remained unconscious, but began to have sluggish pupillary response to light at around 1700 on 12/08. On 12/08 patient's right arm began to show signs of swelling that was not present previously, and did not appear symmetric to the LUE. Venous US of the RUE revealed an occlusive thrombus of the superficial vein, cephalic vein and a nonocclusive thrombus involving the basilic and brachial veins. The patient received a second session of dialysis on 12/09. During the course of the day, the patient began to open his eyes, and have nonpurposeful eye movement , but still lacked a gag reflex. Patient remained febrile with a temperature of 38.5. Infectious Disease anton repeat cultures from the skin, and all areas with line placements. We continued broad spectrum antibiotics. With recent change in neurologic status, a repeat EEG was performed showing no significant changes from the previous study. CT head performed showing no acute changes from the previous study. CT chest and CT ABD/Pelvis performed showing possible pneumoperitoneum which was considered due to the prolonged CPR the patient received upon arrival. Surgery was consulted and a PO contrast study performed on 12/10 which revealed minimal amount of pneumoperitoneum that is suspicious, but not conclusive for bowel rupture as the contrast was seen through out the bowel and into the rectum. Patient received a third session of dialysis on 12/10. Broad-spectrum antibiotics were changed to ertapenem. There were some concerns that with the patient's elevated lipase that this could be secondary to pancreatitis as the patient does have a history of alcohol abuse. All tube feedings were stopped yesterday and have not restarted today (12/10). EEG results from yesterday not available on 12/10, and consulting physicians decided to move for a transfer to a tertiary care center for closer management of the patient's neurological status. This was discussed with the family and they are in agreement. Plan for transfer to [facility] was made 12/10. Acute hypoxic and hypocapnic respiratory failure - Continued mechanical ventilation with PRVC. Acute cardiac arrest - Hypothermia protocol initiated 12/04 with a goal temperature of 36C, rewarming was initiated on 12/05. - Continued mechanical ventilation Hypoxic encephalopathy - Pt continues to be unresponsive. Altered mental status may also be secondary to opiate and alcohol use. Weaned off all sedation with no improvement in mental status. -CT chest shows possible pneumoperitoneum. -CT head showed no acute changes. - Repeat EEG's performed showing no signs of seizure activity but brain activity was noted however sluggish Fever - Pt continues to have fevers overnight. He originally presented with leukocytosis and bandemia, which have now normalized. Procalcitonin was elevated but has been declining steadily. Procalcitonin can be falsely elevated following cardiac arrest and CPR. Blood and urine cultures were negative. Sputum cultures showed 2 colonies of MSSA, uncertain if this is colonization or infection. Viral PCR negative. It is still doubtful that there is active infection, but will cover with antibiotics in the meantime. - Treating with Zosyn. - Repeat sputum culture pending - Fungal blood cultures pending Acute kidney injury - Likely secondary to ischemic injury from cardiac arrest and hypotension. Possibly also secondary to rhabdomyolysis. Received dialysis a total of three times. - Avoid nephrotoxic meds, renal dosing of meds. Right arm SVT - Noted right arm edema, worse than left. R arm US showed DVT. - Heparin gtt Elevated liver enzymes - LFTs elevated on admission. Secondary to hypoperfusion vs sepsis. There are some concerns for alcoholic hepatitis. - Patient placed on Thiamine supplementation - Continue to monitor LFTs. - Lipase 1814 as of 12/10 Elevated troponin - Troponin 0.724 on admission. Likely secondary to demand ischemia and myocardial injury during CPR/defib. - Pt negative for amphetamines. Unlikely to have CAD. - Trend troponin Q6 until normalized. Trending down. Last draw: 0.055 on 12/10 @0400 Anion gap metabolic acidosis - Secondary to lactic acidosis. History of opioid abuse. - Serum tox screen negative despite history of snorting opiates today. - Social work consult -Consider expanded spectrum drug screen. -The family is currently working with a local addiction social worker (Reij) who is in the process of potentially screening the patient's blood and urine from 12/04/16 with the parent's permission for any other illicit street substances that could be found that are not in our current drug screens here at the hospital. Exam Vital Signs (Last) Date Time Temp Pulse Resp B/P Pulse Ox O2 Delivery O2 Flow Rate FiO2 12/10/16 11:35 94 182/81 99 35 12/10/16 04:35 39.5 24 Mechanical Ventilator Exam Constitutional: Mechanically Ventilated. Febrile. In no acute distress. Head: Normocephalic and atraumatic eyes: Pupils weakly reactive to light and sluggish. Positive dolls eyes. No scleral icterus. Heart: regular rate and rhythm. No murmurs. 1+ nonpitting peripheral edema. Distal lower extremities cool to touch, but pulses palpable and 2/4 bilaterally. 3/4 radial pulses bilaterally. Lungs: minimal diffuse expiratory rhonchi. no wheeze or rales ABD: Soft, bowel sounds present throughout. No tympany Musculoskeletal: Appropriate muscle tone. Skin: Warm at the core, cool distal lower extremities. dry, no rash. neuro: Dolls eyes present, pupillary reflex sluggish, but present. Fine mimimal tremor in bilateral upper extremities that is high frequency and low amplitude, likely shivering due to hypothermic protocol. Psych: unable to assess secondary to patient's condition. Test 12/04/16 14:49 12/04/16 14:54 12/04/16 17:47 12/04/16 18:30 Hold [place] Top Tube Received (Received) Salicylates Level < 3.0ug/mL (30-250) Acetaminophen Level < 15.0ug/mL Rx (10-25) Urine Opiates Screen Negative Urine Methadone Screen Negative Urine Barbiturates Screen Negative Urine Amphetamines Screen Negative Urine Benzodiazepines Screen Negative Urine Cocaine Metabolite Screen Negative Urine Cannabinoids Screen Negative Pro-B-Type Natriuretic Peptide 1027pg/mL (0-86) Test 12/05/16 06:00 12/05/16 12:00 12/06/16 05:00 12/07/16 05:00 Metamyelocytes % 1% (0-0) Myelocytes % 5% (0-0) Prothrombin Time 13.6sec (8.1-12.5) Prothromb Time International Ratio 1.26ratio Total Creatine Kinase 2207U/L (21-232) Creatine Kinase MB 84.7ng/mL (0.0-10.4) Creatine Kinase MB % 3.8% (0.0-5.0) HIV (1&2) Ag and Ab, 4th Generation Non reactive (Non Reactive) Rapid Plasma Reagin Non reactive (Non Reactive) Hepatitis A IgM Antibody Negative (Negative) Hepatitis B Surface Antigen Negative (Negative) Hepatitis B Core IgM Antibody Negative (Negative) Hepatitis C Antibody <0.1s/co ratio (0.0-0.9) Hepatitis C Comment Comment (.) Band Neutrophils % 12% (1-5) Phosphorus Level 5.2mg/dL (2.5-4.9) Triglycerides Level 671mg/dL (0-149) Hold [place] Top Tube Received (Received) Test 12/08/16 02:10 12/08/16 22:52 12/09/16 18:30 12/10/16 04:00 Magnesium Level 2.1mg/dL (1.6-2.6) Hold Purple Top Tube Received (Received) Hold Blue Top Tube Received (Received) White Blood Count 6.4th/mm3 (3.8-10.1) Red Blood Count 4.16mil/mm3 (4.40-5.80) Hemoglobin 12.1g/dL (13.8-17.2) Hematocrit 36.1% (41.0-50.0) Mean Corpuscular Volume 86.8fL (81-100) Mean Corpuscular Hemoglobin 29.1pg (27.0-35.0) Mean Corpuscular Hemoglobin Concent 33.5% (32.0-37.0) Red Cell Distribution Width 13.4% (12.3-15.4) Platelet Count 117bil/L (150-400) Neutrophils (%) (Auto) 69.3% (40-74) Lymphocytes (%) (Auto) 13.0% (14-46) Monocytes (%) (Auto) 14.1% (4-12) Eosinophils (%) (Auto) 0.3% (0-5) Basophils (%) (Auto) 0.5% (0-3) Urine Color Yellow (YELLOW) Urine Appearance Clear (CLEAR,HAZY) Urine pH 7.5 (5.0-8.0) Urine Specific [place] 1.010 (1.003-1.035) Urine Protein 100mg/dL (NEG,TRACE) Urine Glucose (UA) Negativemg/dL (NEGATIVE) Urine Ketones Negativemg/dL (NEGATIVE) Urine Occult Blood Large (NEGATIVE) Urine Nitrite Negative (NEGATIVE) Urine Bilirubin Negative (NEGATIVE) Urine Urobilinogen Normalmg/dL (NORMAL) Urine Leukocyte Esterase Negative (NEGATIVE) Urine RBC 3-10/hpf (0-2) Urine WBC 0-5/hpf (0-5) Urine Epithelial Cells Occasional/hpf (NONE-MOD) Urine Crystals Amorphous phosphates Urine Bacteria Few/hpf (NONE-FEW) Urine Hyaline Casts None/lpf (NONE) Urine Granular Casts None seen (NONE SEEN) Urine Waxy Casts None seen (NONE SEEN) Urine Red Blood Cell Casts None seen (NONE SEEN) Urine White Blood Cell Casts None seen (NONE SEEN) Urine Mucus Present (None Seen) Urine Trichomonas None seen (NONE SEEN) Urine Yeast None (NONE SEEN) Urinalysis Comment None Urine Culture Reflexed Not indicated Hold Urine Received (Received) Sodium Level 143mEq/L (134-144) Potassium Level 4.5mEq/L (3.5-5.2) Chloride Level 102mEq/L (97-108) Carbon Dioxide Level 23mmol/L (18-29) Blood Urea Nitrogen 41mg/dL (6-20) Creatinine 5.34mg/dL (0.76-1.27) Estimat Glomerular Filtration Rate 13mL/min (>59) Glucose Level 118mg/dL (60-99) Lactic Acid Level 1.2mmol/L (0.4-2.0) Calcium Level 8.4mg/dL (8.5-10.1) Total Bilirubin 1.0mg/dL (0.0-1.2) Aspartate Amino Transf (AST/SGOT) 49U/L (0-50) Alanine Aminotransferase (ALT/SGPT) 65U/L (0-44) Alkaline Phosphatase 136U/L (25-150) Troponin T 0.055ug/L (0.0-0.011) Total Protein 6.5g/dL (6.4-8.4) Albumin 3.1g/dL (3.4-5.0) Lipase 1814U/L (13-60) Procalcitonin 82.34ng/mL (0.00-0.08) Thyroid Stimulating Hormone (TSH) 2.120uIU/mL (0.450-4.500) Free Thyroxine 0.50ng/dL (0.82-1.77) Test 12/10/16 12:05 12/10/16 12:11 Activated Partial Thromboplast Time 66.1sec (22.8-33.0) Microbiology Results MRSA swab negative Sputum Sample negative Urine culture negative Blood cultures pending Followup Plan Disposition: Patient is being transferred in stable condition to [facility] for further critical care needs. Time spent 120 minutes Attending Statement The patient was seen and examined together with Dr. Beyer on 12/10/16 and I have added additional information to the note above. Dom Beyer DO Dec 10, 2016 15:41 Kari Sullivan DO Dec 10, 2016 18:40
--- NOTE | 2016-12-10 16:02 | NUR ---
Transfer Ordered Pt febrile at 38.9-39.1. Ice packs and cooling blanket in place. CM=209/100 at 0830. Dialysis started at 0930. Nicardapine gtt started, per , prior to dialysis completion and held at 1500. Lipase 1814. ordered x2 ABD series. Fentanyl started at 1000 and Nimbex stopped. Pt started shivering with right sided muscle twitching. Propofol increased to 20mcg/kg/min. notified and consulted with and family. Decision to transfer was made and was notified by . Plan is to go to [facility] between [id number] tonight. Randall has 200cc out and FMS 400cc out. Heparin at 19units with a PTT 66.4. Right are + DVT remains swollen, mepilex placed over opened blister. D5 NS at 60cc/hr. OG at low continuous suction.
--- NOTE | 2016-12-10 17:51 | PCM.PNSURG ---
Subjective Date of Service: Dec 10, 2016 Visit Information: Cardiac Arrest, now with trace pneumoperitoneum and biochemical pancreatitis Date of Admission: Dec 04, 2016 at 15:25 Hospital Day # 7 Objective Vital Sign- Last 8 Hours Date Time Temp Pulse Resp B/P Pulse Ox O2 Delivery O2 Flow Rate FiO2 12/10/16 16:30 38.0 63 24 122/70 100 Mechanical Ventilator 35 12/10/16 16:30 Ventilator 12/10/16 16:18 74 114/61 100 35 12/10/16 12:30 Ventilator 12/10/16 12:30 38.0 94 24 180/101 99 Mechanical Ventilator 35 12/10/16 11:35 94 182/81 99 35 Intake and Output- Last 8 Hour 12/10/16 Cumulative From/Thru 07:00 12/04/16 15:53 - 12/09/16 18:46 Intake Total 49089 ml Output Total 81465 ml Balance 3299 [place] 03130 ml Tube Feeding 161 ml Tube Irrigant 80 ml Output Urine Total 3660 ml Gastric Drainage Total 680 ml Ultrafiltrate 66062 ml # Bowel Movements 2 Abdomen: Soft Result Diagram: 12/10/16 0400 12/10/16 0400 Diagnostics: No enteric contrast extravasation, no obvious CT evidence of pancreatitis Assessment & Plan Impression Trace pneumoperitoneum and biochemical pancreatitis of unclear etiology Problems: Plan Continue to hold tube feeds Follow labs and 2 view abd Xrays daily No indication for surgical intervention Please call with questions Adrián Du MD Dec 10, 2016 17:51
--- NOTE | 2016-12-10 20:00 | NUR ---
Transfer to [facility] Pt transferred to [facility] via [facility] transport. Stable condition and with ice packs and IVs intact. Report called by Olivia Bryant RN to ER as well as given to medic transport. Family aware of situation. Belongings taken with family.
[2016-12-11 15:08] LABS: Cryptococcal Ag Negative (Negative)
== END 2016-12-10 19:35 | disposition short-term general hospital (02) | DRG 917 ==
LOC: SED 14:05 → CCU 15:25
PROVIDERS: ADMIT Neuromusculoskeletal Medicine & OMM; ATTEND Internal Medicine
PROC: 5A1955Z Respiratory Ventilation, Greater than 96 Consecutive Hours (ICD-10-PCS; principal; 2016-12-04)
PROC: 0BH17EZ Insertion of Endotracheal Airway into Trachea, Via Natural or Artificial Opening (ICD-10-PCS; 2016-12-04)
PROC: 6A4Z0ZZ Hypothermia, Single (ICD-10-PCS; 2016-12-04)
PROC: 5A12012 Performance of Cardiac Output, Single, Manual (ICD-10-PCS; 2016-12-04)
PROC: 02HV33Z Insertion of Infusion Device into Superior Vena Cava, Percutaneous Approach (ICD-10-PCS; 2016-12-04)
PROC: 4A033R1 Measurement of Arterial Saturation, Peripheral, Percutaneous Approach (ICD-10-PCS; 2016-12-04)
PROC: 03HY32Z Insertion of Monitoring Device into Upper Artery, Percutaneous Approach (ICD-10-PCS; 2016-12-04)
PROC: 4A00X4Z Measurement of Central Nervous Electrical Activity, External Approach (ICD-10-PCS; 2016-12-07)
PROC: 06HM33Z Insertion of Infusion Device into Right Femoral Vein, Percutaneous Approach (ICD-10-PCS; 2016-12-07)
PROC: 5A1D00Z (ICD-10-PCS; 2016-12-07)
PROC: 5A1D00Z (ICD-10-PCS; 2016-12-08)
PROC: 5A1D00Z (ICD-10-PCS; 2016-12-09)
PROC: 4A00X4Z Measurement of Central Nervous Electrical Activity, External Approach (ICD-10-PCS; 2016-12-09)
PROC: 5A1D00Z (ICD-10-PCS; 2016-12-10)
DX: T40.2X1A Poisoning by other opioids, accidental (unintentional), initial encounter (principal); I49.01 Ventricular fibrillation; I46.8 Cardiac arrest due to other underlying condition; J96.01 Acute respiratory failure with hypoxia; J96.02 Acute respiratory failure with hypercapnia; N17.0 Acute kidney failure with tubular necrosis; J69.0 Pneumonitis due to inhalation of food and vomit; K85.90 Acute pancreatitis without necrosis or infection, unspecified; E87.2 Acidosis; F11.20 Opioid dependence, uncomplicated; G93.1 Anoxic brain damage, not elsewhere classified; I82.621 Acute embolism and thrombosis of deep veins of right upper extremity; E87.3 Alkalosis; Y92.009 Unspecified place in unspecified non-institutional (private) residence as the place of occurrence of the external cause; R04.0 Epistaxis; R93.5 Abnormal findings on diagnostic imaging of other abdominal regions, including retroperitoneum; R50.9 Fever, unspecified